=== PATIENT | male | born 1955 | race Caucasian/White ===

== ENCOUNTER 2017-01-30 08:58 | Emergency (ER) | payer BC ==
[2017-01-30] MEDS ORDERED: Nitroglycerin 0.4 MG Tab.SL SL ONE (09:15)
--- NOTE | 2017-01-30 09:22 | EDM.PDOC ---
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 felt uncomfortable through the night with some chest discomfort and left arm discomfort took a nitroglycerin at home did not get any relief came here to the ER and had some chest discomfort a second nitroglycerin was given and the patient felt much better 4 baby aspirins was given right away now the pain went down to 2 out of 10 at time of transfer he is pain-free his chest pain Onset: Today Duration: Hour(s):, Getting Worse Location: Reports: Chest Quality: Reports: Ache, Pressure Severity: Moderate Improves with: Reports: Medication (Nitroglycerin) Worsens with: Reports: Other (Activity) Context: Reports: Sick Contact Associated Symptoms: Reports: Chest Pain - Related Data Allergies Allergy/AdvReac Type Severity Reaction Status Date / Time No Known Allergies Allergy Verified 01/30/17 09:20 Home Meds: Home Meds Acetaminophen [Tylenol Extra Strength] 1,000 mg PO Q4H PRN 05/24/13 [History] Albuterol [Ventolin HFA] 1 puff INH BID PRN 05/24/13 [History] Clopidogrel Bisulfate [Clopidogrel] 75 mg PO DAILY 05/24/13 [History] Metoprolol Tartrate 25 mg PO DAILY 05/24/13 [History] Nitroglycerin [Nitrostat] 0.4 mg SL PRN 05/24/13 [History] Colchicine [Colcrys] 1 tab PO DAILY 01/30/17 [History] Fenofibrate Nanocrystallized [Fenofibrate] 1 tab PO DAILY 01/30/17 [History] Social & Family History - Alcohol Use Days Per Week of Alcohol Use: 0 - Recreational Drug Use Recreational Drug Use: No Drug Use in Last 12 Months: No ED ROS GENERAL - Review of Systems Review Of Systems: See Below Constitutional: Reports: Other (Chest discomfort radiating into her left shoulder) HEENT: Reports: No Symptoms Respiratory: Reports: Shortness of Breath (Earlier in the day) Cardiovascular: Reports: Chest Pain (At worse the chest pain was 5 out of 10) Endocrine: Reports: No Symptoms GI/Abdominal: Reports: No Symptoms : Reports: No Symptoms Musculoskeletal: Reports: Shoulder Pain Skin: Reports: No Symptoms Neurological: Reports: No Symptoms ED EXAM, GENERAL - Physical Exam Exam: See Below Exam Limited By: No Limitations General Appearance: Alert, WD/WN, No Apparent Distress Ears: Normal External Exam, Normal Canal, Hearing Grossly Normal, Normal TMs Nose: Normal Inspection, Normal Mucosa, No Blood Throat/Mouth: Normal Inspection, Normal Lips, Normal Teeth, Normal Gums, Normal Oropharynx, Normal Voice, No Airway Compromise Head: Atraumatic, Normocephalic Neck: Normal Inspection, Supple, Non-Tender, Full Range of Motion Respiratory/Chest: Decreased Breath Sounds Cardiovascular: Normal Peripheral Pulses, Regular Rate, Rhythm, No Edema, No Gallop, No JVD, No Murmur, No Rub GI/Abdominal: Normal Bowel Sounds, Soft, Non-Tender, No Organomegaly, No Distention, No Abnormal Bruit, No Mass (Male) Exam: Deferred Rectal (Males) Exam: Deferred Back Exam: Other (She did have back pain relief with a nitroglycerin) Extremities: Normal Inspection, Normal Range of Motion, Non-Tender, Normal Capillary Refill, No Pedal Edema Neurological: Alert, Oriented, CN II-XII Intact, Normal Cognition, Normal Gait, Normal Reflexes, No Motor/Sensory Deficits Psychiatric: Normal Affect, Normal Mood Course - Orders/Labs/Meds Meds: Medications Discontinued Medications Generic Name Dose Route Start Last Admin Trade Name Arminq PRN Reason Stop Dose Admin Nitroglycerin 0.4 mg 01/30/17 09:15 Nitrostat SL 01/30/17 09:16 ONETIME ONE Departure - Departure Time of Disposition: 09:47 Disposition: DC/Tfer to Acute Hospital 02 Reason for Transfer *Q: Primary PCI Indicated (Chest pain) Condition: Fair Clinical Impression: Chest pain at rest Referrals: Di Coronado NP [Primary Care Provider] - Care Plan Goals: Patient evaluated felt that this is cardiac in nature nitroglycerin glycerin sublingual improved chest pain back pain and shoulder pain troponins negative at this time cardiology contacted and will transfer to [place] EKG revealed normal sinus rhythm significant Q waves in 23 and lead 2 and 3 this could've been from a previous [place]
[2017-01-30 09:31] LABS: CHLORIDE,CL 98 mmol/L (98-107); SODIUM,NA 135 mmol/L (136-145)
[2017-01-30] MEDS ORDERED: Metoprolol Tartrate 5 MG/5 ML SDV IVPUSH ONE ×2 (09:41→09:47)
[2017-01-30] MEDS ORDERED: Aspirin 81 MG Tab.Chew PO ONE (09:47)
== END 2017-01-30 10:23 ==
LOC: LL.ED 08:58
DX: R07.89 Other chest pain (principal)
CPT/HCPCS: 36415; 71010; 80048; 83605; 83880; 84484; 85025; 93005; 96374; 99285; A9270; J3490

== ENCOUNTER 2017-08-18 01:34 | Emergency (ER) | payer BC ==
--- NOTE | 2017-08-18 01:43 | EDM.PDOC ---
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 He denies any paresthesias, leg weakness, neurological deficits, fall, head injury, or other complaints or injuries. He does have a history of chronic low back pain. The patient did apply ice packs at home, however did not take any medications or any other topical treatment prior to coming to the emergency room. He denies any post hematuria, colic, or any other UTI symptoms. The patient denies any chest pain/pressure, heart flutter, dizziness, orthostasis, orthopnea, diaphoresis, paresthesias, recent decreased exercise tolerance, or any other anginal-type symptoms. No recent history of abdominal pain, heartburn, nausea, diarrhea, melena, gross hematochezia, or any food intolerance, including fatty foods, etc.. The patient also denies any recent fever, cough, wheezing, dyspnea , etc.. Onset: Sudden Onset Date: 08/17/17 Onset Time: 21:00 Duration: Constant Location: Reports: Back. Denies: Head, Face, Neck, Chest, Abdomen, Pelvis, Upper Extremity, Left, Upper Extremity, Right, Lower Extremity, Left, Lower Extremity, Right, Radiates to Quality: Reports: Ache, Same as Previous Episode, Other (Spasms) Severity: Moderate (8/10) Improves with: Reports: Rest Worsens with: Reports: Movement Context: Reports: Other (As above) Associated Symptoms: Reports: No Other Symptoms. 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: Cold Therapy Left Middle Back Pain Score (Numeric/FACES): 8 - Related Data Allergies Allergy/AdvReac Type Severity Reaction Status Date / Time No Known Allergies Allergy Verified 08/18/17 01:35 Home Meds: Home Meds Clopidogrel Bisulfate [Clopidogrel] 75 mg PO DAILY 05/24/13 [History] Metoprolol Tartrate 12.5 mg PO DAILY 05/24/13 [History] Nitroglycerin [Nitrostat] 0.4 mg SL ASDIRECTED PRN 05/24/13 [History] Colchicine [Colcrys] 1 tab PO DAILY 01/30/17 [History] Aspirin [Halfprin] 81 mg PO DAILY 08/18/17 [History] Cyclobenzaprine [Flexeril] 10 mg PO TID PRN #30 tab 08/18/17 [Rx] Ezetimibe [Zetia] 10 mg PO DAILY 08/18/17 [History] Lisinopril 2.5 mg PO DAILY 08/18/17 [History] atorvaSTATin [Lipitor] 40 mg PO DAILY 08/18/17 [History] Past Medical History HEENT History: Reports: Impaired Vision, Other (See Below) Other HEENT History: The patient wears glasses with history of recurrent amaurosis fugax and history of left-sided strabismus 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 Mild cardiomegaly with borderline ischemic cardiomyopathy Respiratory History: Reports: Pulmonary Fibrosis Gastrointestinal History: Reports: Cholelithiasis, Colon Polyp, Other (See Below ) Other Gastrointestinal History: Tubular adenoma of the colon excised on 05/24/13 your gallbladder polyp. Cholelithiasis requiring surgery as below. Fatty liver secondary to hyperlipidemia. Genitourinary History: Reports: BPH, Chronic Renal Insuffiency Musculoskeletal History: Reports: Arthritis, Back Pain, Chronic, Fracture, Gout , Neck Pain, Chronic, Osteoarthritis Other Musculoskeletal History: Previous pelvic fracture in 2004 with surgery as below. Bilateral olecranon bursitis requiring surgery as below. Right shoulder rotator cuff tear requiring surgery as below. Bilateral calcaneal spurs. Left elbow fracture in March 2009. Avulsion fracture of the middle phalanx of digit #4 of the right hand on 10/24/02 Psychiatric History: Reports: Anxiety, Depression - Past Surgical History Cardiovascular Surgical History: Reports: Coronary Artery Stent, Percutaneous Transluminal Angioplasty, Other (See Below) Other Cardiovascular Surgeries/Procedures: Multiple previous PTCA/stents since 2010 with patient estimating a total of 10 stents in 3 separate cardiac procedures including last PTCA/stent 2 in April 2017 by his history. GI Surgical History: Reports: Colonoscopy, Hernia, Abdominal, Polypectomy, Other (See Below) Other GI Surgeries/Procedures: Initial colonoscopy on 05/24/13 with polypectomy. Laparoscopic cholecystectomy with concomitant umbilical hernia repair on Musculoskeletal Surgical History: Reports: ORIF, Shoulder Surgery, Other (See Below) Other Musculoskeletal Surgeries/Procedures:: Right shoulder rotator cuff repair in 2007. ORIF of the pubic symphysis on 09/25/04. Left olecranon bursa excision on 05/11/04 with right olecranon bursa excision in March 2002. Left elbow fusion secondary to fracture in March 2009. - Past Imaging History Past Imaging History: Reports: Angiography (Multiple heart catheterizations last in April 2017), Cardiac Echo (02/08/11 with ejection fraction of 56%), Carotid US (Carotid artery Doppler studies on 03/11/11 and 05/07/08), CAT Scan ( CT of the brain on 07/15/08 and 05/07/08.), MRI (MRI of the right shoulder on 04/10. MRI of the brain on 10/29/09.), Stress Testing (Cardiolite stress test on with ejection fraction of 46%. Low level stress tests on 08/16/14, , and 02/16/11.), Ultrasound (Abdominal ultrasound on 09/29/11) Social & Family History - Tobacco Use Smoking Status *Q: Never Smoker Tobacco Use Within Last Twelve Months: No Used Tobacco, but Quit: No Smoking Cessation Information Provided To Patient: No Second Hand Smoke Exposure: No Second Hand Smoke Education Provided: No - Living Situation & Occupation Living situation: Reports: Single, Alone Occupation: Employed ([employer]) ED ROS GENERAL - Review of Systems Review Of Systems: ROS reveals no pertinent complaints other than HPI. ED EXAM,LOWER BACK PAIN/INJURY - Physical Exam Exam: See Below Exam Limited By: No Limitations General Appearance: Alert, WD/WN, No Apparent Distress Head: Atraumatic, Normocephalic Neck: Normal Inspection, Supple, Non-Tender, Full Range of Motion. No: Lymphadenopathy (L), Lymphadenopathy (R), Thyromegaly Respiratory/Chest: No Respiratory Distress, Lungs Clear, Normal Breath Sounds, No Accessory Muscle Use, Chest Non-Tender. No: Pleural Rub, Retractions Cardiovascular: Normal Peripheral Pulses, Regular Rate, Rhythm, No Edema, No Gallop, No JVD, No Murmur, No Rub. No: Gallop/S3, Gallop/S4, Friction Rub GI/Abdominal: Normal Bowel Sounds, Soft, Non-Tender, No Organomegaly, No Distention, No Abnormal Bruit, No Mass. No: Pelvis Stable (Male) Exam: Deferred Rectal (Males) Exam: Deferred Back Exam: Decreased Range of Motion (Mild decreased range of motion secondary to low back pain and muscle spasms), Muscle Spasm (Mild left mid paravertebral muscle spasms with mild to moderate localized palpation pain without ecchymosis , swelling, crepitation, etc.), Paraspinal Tenderness (As above). No: CVA Tenderness (L), CVA Tenderness (R), Vertebral Tenderness Extremities: Normal Inspection, Normal Range of Motion, Non-Tender, No Pedal Edema, Normal Capillary Refill Neurological: Alert, Normal Mood/Affect, Normal Dorsiflexion, CN II-XII Intact, Normal Plantar Flexion, Normal Gait, Normal Reflexes, No Motor/Sensory Deficits , Oriented x 3 Psychiatric: Normal Affect, Normal Mood Skin Exam: Warm, Dry, Intact, Normal Color, No Rash. No: Diaphoretic, Ecchymosis, Wound/Incision Lymphatic: No Adenopathy Course - Vital Signs Last Recorded V/S: Last Vital Signs Temp 36.8 C 08/18/17 01:38 Pulse 78 08/18/17 01:38 Resp 18 08/18/17 01:38 BP 154/94 H 08/18/17 01:38 Pulse Ox 97 08/18/17 01:38 Vital Signs - 24 hr 08/18/17 01:38 Temperature [ 36.8 C Oral] Pulse, 78 Peripheral [ Brachial] Respiratory 18 Rate Blood Pressure 154/94 H [Left Upper Arm ] O2 Sat by Pulse 97 Oximetry - Orders/Labs/Meds Orders: Active Orders 24 hr Category Date Time Status Obtain Past Medical Record [OM.PC] Routine Oth 08/18/17 01:44 Active Labs: None Meds: Medications Discontinued Medications Generic Name Dose Route Start Last Admin Trade Name Freq PRN Reason Stop Dose Admin Ketorolac Tromethamine 60 mg 08/18/17 01:44 08/18/17 01:54 Toradol IM 08/18/17 01:45 60 mg ONETIME ONE Administration - Radiology Interpretation Free Text/Narrative:: None Departure - Departure Time of Disposition: 02:10 Disposition: Home, Self-Care 01 Condition: Good Clinical Impression: Low back pain Qualifiers: Chronicity: acute Back pain laterality: left Sciatica presence: without sciatica Qualified Code(s): M54.5 - Low back pain Coronary artery disease Qualifiers: Coronary Disease-Associated Artery/Lesion type: [place] artery [place] vs. transplanted heart: [place] heart Associated angina: without angina Qualified Code(s): I25.10 - Atherosclerotic heart disease of [place] coronary artery without angina pectoris Hypertension Qualifiers: Hypertension type: essential hypertension Qualified Code(s): I10 - Essential ( primary) hypertension Osteoarthritis Qualifiers: Osteoarthritis location: multiple joints Osteoarthritis type: primary Qualified Code(s): M15.0 - Primary generalized (osteo)arthritis Hyperlipidemia Qualifiers: Hyperlipidemia type: unspecified Qualified Code(s): E78.5 - Hyperlipidemia, unspecified - Discharge Information Prescriptions: Cyclobenzaprine [Flexeril] 10 mg PO TID PRN #30 tab PRN Reason: Spasms Instructions: Cyclobenzaprine tablets, Ketorolac injection, Back Pain, Adult, [id number] Referrals: Letty Rush PA [Primary Care Provider] - Forms: ED Department Discharge Additional Instructions: 1. Follow up with your regular provider in 10-14 days as needed, if symptoms persist. 2. Tylenol 650 mg by mouth every 4 hours and/or OTC ibuprofen 2-3 tabs by mouth every 6 hours with food as directed./needed. Next dose of ibuprofen in 6 hours as needed secondary to medications given in the emergency room. 3. BenGay or equivalent, heating pad, and/or ice packs as directed. 4. Advance activity as tolerated/discussed 5. Okay to see chiropractor tomorrow 6. Sedation precautions with Flexeril 7. Immediately after this visit verify that your cellular telephone's voicemail has been activated and is empty. Also verify that your home telephone 's answering machine is operating properly and has space to receive messages. Note that it is sometimes necessary for us to be able to contact you at a later date to discuss your medical care. - Problem List & Annotations (1) Low back pain SNOMED Code(s): 641605085 Code(s): M54.5 - LOW BACK PAIN Status: Acute Priority: High Current Visit: Yes Onset Date: 08/17/17 Annotation/Comment:: Symptomatic relief as per discharge instructions. Patient normally goes to a chiropractor. 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 Sedation precautions with Flexeril, activity restrictions, etc. discussed. Qualifiers: Chronicity: acute Back pain laterality: left Sciatica presence: without sciatica Qualified Code(s): M54.5 - Low back pain (2) Coronary artery disease SNOMED Code(s): 02448268 Code(s): I25.10 - ATHSCL HEART DISEASE OF [place] CORONARY ARTERY W/O ANG PCTRS Status: Chronic Priority: Medium Current Visit: Yes Annotation/ Comment:: No recent chest pain or anginal type symptoms Qualifiers: Coronary Disease-Associated Artery/Lesion type: [place] artery [place] vs. transplanted heart: [place] heart Associated angina: without angina Qualified Code(s): I25.10 - Atherosclerotic heart disease of [place] coronary artery without angina pectoris (3) Hyperlipidemia SNOMED Code(s): 77233353 Code(s): E78.5 - HYPERLIPIDEMIA, UNSPECIFIED Status: Chronic Priority: Medium Current Visit: Yes Annotation/Comment:: Currently under therapy Qualifiers: Hyperlipidemia type: unspecified Qualified Code(s): E78.5 - Hyperlipidemia , unspecified (4) Hypertension SNOMED Code(s): 46387563 Code(s): I10 - ESSENTIAL (PRIMARY) HYPERTENSION Status: Chronic Priority : Medium Current Visit: Yes Annotation/Comment:: Blood pressure somewhat elevated secondary to patient's low back pain. Continue to observe for now with close follow-up by his regular provider Qualifiers: Hypertension type: essential hypertension Qualified Code(s): I10 - Essential (primary) hypertension (5) Osteoarthritis SNOMED Code(s): 381467315 Code(s): M19.90 - UNSPECIFIED OSTEOARTHRITIS, UNSPECIFIED SITE Status: Chronic Priority: Medium Current Visit: Yes Annotation/Comment:: Otherwise stable by history with no recent gout attacks. Qualifiers: Osteoarthritis location: multiple joints Osteoarthritis type: primary Qualified Code(s): M15.0 - Primary generalized (osteo)arthritis - Problem List Review Problem List Initiated/Reviewed/Updated: Yes - My Orders Last 24 Hours: My Active Orders 08/18/17 01:44 Obtain Past Medical Record [OM.PC] Routine - Assessment/Plan Last 24 Hours: My Active Orders 08/18/17 01:44 Obtain Past Medical Record [OM.PC] Routine Assessment:: As above Plan: As above. Extensive precautions were given to the patient, who is in agreement with the treatment plan. See Patient Instructions for further treatment and plan.
[2017-08-18] MEDS ORDERED: Ketorolac 60 MG/2 ML SDV IM ONE (01:44)
== END 2017-08-18 02:10 | disposition home or self-care (01) ==
LOC: LL.ED 01:34
DX: M54.5 Low back pain (principal); I25.10 Atherosclerotic heart disease of native coronary artery without angina pectoris; M15.0 Primary generalized (osteo)arthritis; E78.5 Hyperlipidemia, unspecified; I12.9 Hypertensive chronic kidney disease with stage 1 through stage 4 chronic kidney disease, or unspecified chronic kidney disease; N18.9 Chronic kidney disease, unspecified; I25.2 Old myocardial infarction; Z79.899 Other long term (current) drug therapy; Z79.82 Long term (current) use of aspirin
CPT/HCPCS: 96372; 99283; J1885

== ENCOUNTER 2017-09-15 14:51 | Observation (INO) | payer BC ==
[2017-09-15] MEDS ORDERED: Sodium Chloride 0.9% 10 ML Syringe FLUSH PRN ×2 (14:54→16:44)
[2017-09-15] MEDS ORDERED: Famotidine 20 MG/2 ML SDV IVPUSH ONE (14:54)
[2017-09-15] MEDS ORDERED: Aspirin 81 MG Tab.Chew CHEW ONE (14:54)
[2017-09-15] MEDS ORDERED: Metoprolol Tartrate 5 MG/5 ML SDV IVPUSH ONE ×2 (14:54→15:05)
[2017-09-15] MEDS ORDERED: Ticagrelor 90 MG Tab PO ONE (14:54)
--- NOTE | 2017-09-15 14:54 | EDM.PDOC ---
ED HPI GENERAL MEDICAL PROBLEM - General Chief Complaint: Chest Pain Stated Complaint: Chest Pressure, Shortness of Breath Time Seen by Provider: 09/15/17 14:53 Source of Information: Reports: Patient, EMS Notes Reviewed, Old Records ([facility] chart/EMR) History Limitations: Reports: No Limitations - History of Present Illness INITIAL COMMENTS - FREE TEXT/NARRATIVE: The patient drove himself to the emergency room via private automobile for evaluation of 2/10 retrosternal chest pressure with symptoms starting about 2 AM this morning. He has noted some progressive increased dyspnea, including at rest, with no sublingual nitroglycerin tablets or other medications taken to this point. Note that the symptoms did awaken him from sleep. He denies any radiation of the chest pain. The patient denies any heart flutter, dizziness, orthostasis, orthopnea, diaphoresis, paresthesias, recent decreased exercise tolerance, or any other anginal-type symptoms. No recent history of abdominal pain, heartburn, nausea, diarrhea, melena, gross hematochezia, or any food intolerance, including fatty foods, etc.. No recent history of gross hematuria, colic, or other UTI symptoms. The patient also denies any recent fever, cough, wheezing, dyspnea, etc.. He denies any exposure to infection. Patient did take some Sudafed earlier this morning secondary to his dyspnea and mild nasal drainage no improvement in symptoms. No history of recent headaches, visual changes, diplopia, change in mental status, or other change in neurological status. Onset: Today Onset Date: 09/15/17 Onset Time: 02:00 Duration: Constant, Getting Worse Location: Reports: Chest. Denies: Head, Face, Neck, Abdomen, Upper Extremity, Left, Upper Extremity, Right, Radiates to Quality: Reports: Pressure. Denies: Same as Previous Episode Severity: Mild Improves with: Reports: None Worsens with: Reports: None Context: Reports: Other (As above). Denies: Sick Contact Associated Symptoms: Reports: Chest Pain, Shortness of Breath. 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: Other (see below) (None) Middle Chest Pain Score (Numeric/FACES): 2 - Related Data Allergies Allergy/AdvReac Type Severity Reaction Status Date / Time No Known Allergies Allergy Verified 08/18/17 01:35 Home Meds: Home Meds Clopidogrel Bisulfate [Clopidogrel] 75 mg PO DAILY 05/24/13 [History] Nitroglycerin [Nitrostat] 0.4 mg SL ASDIRECTED PRN 05/24/13 [History] Colchicine [Colcrys] 0.6 mg PO DAILY 01/30/17 [History] Aspirin [Halfprin] 81 mg PO DAILY 08/18/17 [History] Ezetimibe [Zetia] 10 mg PO DAILY 08/18/17 [History] Lisinopril 2.5 mg PO DAILY 08/18/17 [History] atorvaSTATin [Lipitor] 40 mg PO DAILY 08/18/17 [History] Metoprolol Succinate [Toprol XL] 12.5 mg PO DAILY 09/15/17 [History] Past Medical History HEENT History: Reports: Allergic Rhinitis, Impaired Vision, Other (See Below). 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 Denies: Afib, Angina, Arrhythmia, Blood Clots/VTE/DVT, Heart Failure, PVD, Syncope Other Cardiovascular History: History of probable multiple MIs since 2010, including on 02/18/11 and 12/06/12' with multiple stents as below. Mild cardiomegaly with borderline ischemic cardiomyopathy Respiratory History: Reports: COPD, Intubation, Previous, Pulmonary Fibrosis, Other (See Below). Denies: Asthma, Bronchitis, Recurrent, Intubation, Difficult , PE, Pneumonia, Recurrent, Pneumothorax, Sleep Apnea, TB Other Respiratory History: COPD and pulmonary fibrosis by chest x-ray Gastrointestinal History: Reports: Cholelithiasis, Colon Polyp, Other (See Below ). Denies: Celiac Disease, Chronic Constipation, Chronic Diarrhea, Diverticulosis, Fecal Incontinence, Gastritis, GERD, GI Bleed, Hepatitis, Hiatal Hernia, Inflammatory Bowel Disease, Irritable Bowel Syndrome, Jaundice, Pancreatitis, PUD Other Gastrointestinal History: Tubular adenoma of the colon excised on 05/24/13. Gallbladder polyp. Cholelithiasis requiring surgery as below. Fatty liver secondary to hyperlipidemia. Genitourinary History: Reports: BPH, Chronic Renal Insuffiency. Denies: Acute Renal Failure, Renal Calculus, Retention, Urinary, STD, Urinary Incontinence, UTI, Recurrent Musculoskeletal History: Reports: Arthritis, Back Pain, Chronic, Fracture, Gout , Neck Pain, Chronic, Osteoarthritis. Denies: Amputation, Osteoporosis, RA, SLE Other Musculoskeletal History: Previous pelvic fracture in 2004 with surgery as below. Bilateral olecranon bursitis requiring surgery as below. Right shoulder rotator cuff tear requiring surgery as below. Bilateral calcaneal spurs. Left elbow fracture in March 2009. Avulsion fracture of the middle phalanx of digit #4 of the right hand on 10/24/02 Neurological History: Denies: Cerebral Aneurysms, Concussion, CVA, Headaches, Chronic, Head Trauma, Migraines, MS, Neuropathy, Peripheral, Parkinson's, Seizure, TIA Psychiatric History: Reports: Anxiety, Depression. Denies: Abuse, Victim of, ADD, ADHD, Addiction, Dementia, Psych Hospitalization(s), Psychosis, PTSD, Suicide Attempt, Suicidal Ideation Endocrine/Metabolic History: Reports: Obesity/BMI 30+. Denies: Diabetes, Type I , Diabetes, Type II, Diabetes Mellitus, Type 3c, Hypothyroidism, IDDM, Osteopenia, Osteoporosis Hematologic History: Reports: None. Denies: Anemia, Blood Transfusion(s), Iron Deficiency Immunologic History: Reports: None. Denies: AIDS, HIV, SLE Oncologic (Cancer) History: Reports: None. Denies: Basal Cell Carcinoma, Colon , Hodgkin's Lymphoma, Leukemia, Lymphoma, Malignant Melanoma, Non-Hodgkin's Lymphoma, Prostate, Squamous Cell Carcinoma Dermatologic History: Reports: None. Denies: Eczema, Psoriasis - Infectious Disease History Infectious Disease History: Reports: Chicken Pox, Measles, Mumps. Denies: C- Difficile, Meningitis, Mononucleosis, MRSA, Pertussis (Whooping Cough), Rheumatic Fever, Rubella, Scarlet Fever, Shingles, TB, VRE - Past Surgical History Head Surgeries/Procedures: Reports: None HEENT Surgical History: Reports: Oral Surgery, Other (See Below). Denies: Adenoidectomy, Cataract Surgery, Eye Surgery, Laser Surgery, LASIK, Myringotomy w Tube(s), Naso-Sinus Surgery, Tonsillectomy Other HEENT Surgeries/Procedures: [place] teeth extraction 4 in the with additional multiple teeth extractions. Cardiovascular Surgical History: Reports: Coronary Artery Stent, Percutaneous Transluminal Angioplasty, Other (See Below). Denies: Coronary Artery Bypass, Pacer, Varicose Other Cardiovascular Surgeries/Procedures: Multiple previous PTCA/stents since 2010 with patient estimating a total of 10 stents in 3 separate cardiac procedures including last PTCA/stent 2 on 01/31/17. Respiratory Surgical History: Reports: None. Denies: Thoracentesis GI Surgical History: Reports: Cholecystectomy, Colonoscopy, Hernia, Abdominal, Polypectomy, Other (See Below). Denies: Appendectomy, Hernia, Inguinal, Hernia Repair/Other Other GI Surgeries/Procedures: Initial colonoscopy on 05/24/13 with polypectomy. Laparoscopic cholecystectomy with concomitant umbilical hernia repair on Male Surgical History: Reports: Circumcision, Other (See Below). Denies: Vasectomy Other Male Surgeries/Procedures: Circumcision as an . Endocrine Surgical History: Reports: None. Denies: Thyroid Biopsy Neurological Surgical History: Reports: None. Denies: C-Spine, Discectomy, Intracranial, Laminectomy, Lumbar Spine, Sacral Spine, Spinal Fusion, Thoracic Spine, Vertebroplasty Musculoskeletal Surgical History: Reports: ORIF, Shoulder Surgery, Other (See Below). Denies: Arthroscopic Procedure, Carpal Tunnel, Ganglion Cyst, Joint Replacement Other Musculoskeletal Surgeries/Procedures:: Right shoulder rotator cuff repair in 2007. ORIF of the pubic symphysis on 09/25/04. Left olecranon bursa excision on 05/11/04 with right olecranon bursa excision in March 2002. Left elbow fusion secondary to fracture in March 2009. Oncologic Surgical History: Reports: None Dermatological Surgical History: Reports: None - Past Imaging History Past Imaging History: Reports: Angiography (Multiple heart catheterizations last on 01/31/17.), Cardiac Echo (02/08/11 with ejection fraction of 56%), Carotid US (Carotid artery Doppler studies on 03/11/11 and 05/07/08), CAT Scan ( CT of the brain on 07/15/08 and 05/07/08.), MRI (MRI of the right shoulder on 04/10. MRI of the brain on 10/29/09.), Stress Testing (Cardiolite stress test on with ejection fraction of 46%. Low level stress tests on 08/16/14, , and 02/16/11.), Ultrasound (Abdominal ultrasound on 09/29/11) Social & Family History - Family History HEENT: Reports: None. Denies: Allergic Rhinitis, Glaucoma, Macular Degeneration , Retinal Detachment Cardiac: Reports: Arrhythmia, CAD, SD, Pacemaker, Stent, Other (See Below). Denies: Aneurysm, Blood Clots/VTE/DVT, Heart Failure, High Cholesterol, Hypertension, PVD/COD Other Cardiac Family History: Father with history of pacemaker history of syncope, unknown type of arrhythmia, previous PTCA/stents and possible SD in his 70s. Brothers 2 with PTCA/stents and possible SD both in their 50s. Respiratory: Reports: None. Denies: Asthma, COPD, PE, Pneumothorax, Sleep Apnea GI: Reports: None. Denies: Celiac Disease, Cholelithiasis, Colon Polyps, GERD, GI bleed, Inflammatory Bowel Disease, Irritable Bowel Syndrome, PUD : Reports: None. Denies: Dialysis, Renal Calculus, Renal Disease/ Insufficiency OBGYN: Reports: None. Denies: Endometriosis, Recurrent Spontaneous Musculoskeletal: Reports: None. Denies: Arthritis, Gout, Osteoarthritis, RA, SLE Neurological: Reports: CVA, Other (See Below). Denies: Alzheimers Disease, Cerebral Aneurysms, Dementia, Migraines, MS, Parkinson's, Seizure, TIA Other Neurological Family History: Father with CVA in his 70s. Paternal grandfather with fatal CVA in his 70s. Psychiatric: Reports: None. Denies: Abuse, Victim of, ADD, ADHD, Anxiety, Depression, Psych Hospitalization(s), PTSD, Suicide Attempt Endocrine/Metabolic: Reports: Diabetes, type II, IDDM, Other (See Below). Denies: Diabetes, Type I, Diabetes Mellitus, Type 3c, Hypothyroidism Other Endocrine/Metabolic Family History: Maternal grandmother and sister with IDDM Hematologic: Reports: None. Denies: Anemia, SLE, Transfusion Reaction Immunologic: Reports: None. Denies: AIDS, HIV, SLE Dermatologic: Reports: None. Denies: Eczema, Psoriasis Oncologic: Reports: Lung, Skin, Other (See Below). Denies: Colon, Hodgkin's Lymphoma, Leukemia, Lymphoma, Non-Hodgkin's Lymphoma, Prostate Other Oncologic Family History: Brother with fatal lung cancer at age 61 with history of tobacco use. Maternal grandmother with unknown type of fatal cancer in her 70s. Niece with fatal bone cancer at age 13. Father with unknown type of skin cancer. - Tobacco Use Smoking Status *Q: Never Smoker Tobacco Use Within Last Twelve Months: No Used Tobacco, but Quit: No Smoking Cessation Information Provided To Patient: No Second Hand Smoke Exposure: No Second Hand Smoke Education Provided: No - Caffeine Use Caffeine Use: Reports: Soda (15 sodas per day). Denies: Coffee, Energy Drinks, Tea - Alcohol Use Alcohol Use History: Yes Days Per Week of Alcohol Use: 0 Number of Drinks Per Day: 3 Number of Drinks Per Day Comment: DWI at age 21. No previous problems with alcohol abuse, treatment, etc. Patient usually drinks vodka, mixed drinks, etc. for holidays, etc. Total Drinks Per Week: 0 Alcohol Use in Last Twelve Months: Yes Alcohol Use Frequency: Rarely - Recreational Drug Use Recreational Drug Use: No Drug Use in Last 12 Months: No Recreational Drug Type: Denies: Amphetamines (Speed), Cocaine, Heroin, Inhalants (Glues, Solvents, Aerosols), LSD (Acid), Marijuana/Hashish, Methamphetamine, Oxycodone - Living Situation & Occupation Living situation: Reports: Single (No children), Alone Occupation: Employed ([employer] and works in the [employer] in [place]) ED ROS GENERAL - Review of Systems Review Of Systems: ROS reveals no pertinent complaints other than HPI. ED EXAM, GENERAL - Physical Exam Exam: See Below Exam Limited By: No Limitations General Appearance: Alert, WD/WN, No Apparent Distress, Anxious Eye Exam: Bilateral Eye: EOMI, Normal Inspection (She the patient is wearing glasses. No nystagmus), PERRL Ears: Normal External Exam, Normal Canal, Hearing Grossly Normal, Normal TMs Nose: Normal Inspection, Normal Mucosa, No Blood Throat/Mouth: Normal Inspection, Normal Lips, Normal Teeth (Multiple missing teeth), Normal Gums, Normal Oropharynx, Normal Voice, No Airway Compromise. No : Dysphagia, Perioral Cyanosis Head: Atraumatic, Normocephalic. No: Facial Swelling, Facial Tenderness, Sinus Tenderness Neck: Normal Inspection, Supple, Non-Tender, Full Range of Motion. No: Carotid Bruit, Lymphadenopathy (L), Lymphadenopathy (R), Thyromegaly Respiratory/Chest: No Respiratory Distress, Lungs Clear, Normal Breath Sounds, No Accessory Muscle Use, Chest Non-Tender. No: Pleural Rub, Retractions Cardiovascular: Normal Peripheral Pulses, Regular Rate, Rhythm, No Edema, No Gallop, No JVD, No Murmur, No Rub. No: Gallop/S3, Gallop/S4, Friction Rub Peripheral Pulses: 3+: Radial (L), Radial (R), Dorsalis Pedis (L), Dorsalis Pedis (R) GI/Abdominal: Normal Bowel Sounds, Soft, Non-Tender, No Organomegaly, No Distention, No Abnormal Bruit, No Mass, Pelvis Stable. No: Guarding (Male) Exam: Deferred Rectal (Males) Exam: Deferred Back Exam: Normal Inspection, Full Range of Motion. No: CVA Tenderness (L), CVA Tenderness (R), Muscle Spasm Extremities: Normal Inspection, Normal Range of Motion, Non-Tender, No Pedal Edema, Normal Capillary Refill. No: Osiel's Sign Neurological: Alert, Oriented, CN II-XII Intact, Normal Cognition, Normal Gait, Normal Reflexes (Negative Babinski's), No Motor/Sensory Deficits Psychiatric: Normal Affect, Normal Mood Skin Exam: Warm, Dry, Intact, Normal Color, No Rash. No: Diaphoretic, Wound/ Incision Lymphatic: No Adenopathy EKG INTERPRETATION EKG Date: 09/15/17 Time: 14:57 Rhythm: NSR Rate (Beats/Min): 75 [place]: Normal (Left cardiac axis) P-Wave: Enlarged (Mild diffuse biphasic P waves) QRS: Wide (0.10 seconds representing repolarization changes) ST-T: Normal QT: Normal [place]/PQ Interval: 0.17 seconds Comparison: No Change (01/30/17) EKG Interpretation Comments: 1. No acute ischemic changes 2. Probable left atrial enlargement 3. Repolarization changes Course - Vital Signs Last Recorded V/S: Last Vital Signs Temp 36.6 C 09/15/17 14:54 Pulse 67 09/15/17 16:05 Resp 13 09/15/17 16:05 BP 132/79 09/15/17 16:05 Pulse Ox 100 09/15/17 16:05 Vital Signs - 24 hr 09/15/17 09/15/17 09/15/17 14:54 15:05 15:12 Temperature [ 36.6 C Temporal] Pulse, 80 Peripheral Pulse, 74 68 Peripheral [ Pulse Oximetry] Respiratory 13 14 Rate Blood Pressure 133/77 Blood Pressure 163/92 H 133/77 [Right Upper Arm] O2 Sat by Pulse 98 97 Oximetry 09/15/17 15:35 Temperature [ Temporal] Pulse, Peripheral Pulse, 68 Peripheral [ Pulse Oximetry] Respiratory 17 Rate Blood Pressure Blood Pressure 128/75 [Right Upper Arm] O2 Sat by Pulse 100 Oximetry - Orders/Labs/Meds Orders: Active Orders 24 hr Category Date Time Status Cardiac Monitoring [RC] Q2HR Care 09/15/17 14:54 Active EKG Documentation Completion [RC] ASDIRECTED Care 09/15/17 14:54 Active Oxygen Therapy, ED [RC] CONTINUOUS Care 09/15/17 14:54 Active Peripheral IV Care [RC] . DIRECTED Care 09/15/17 14:54 Active Pulse Oximetry [RC] CONTINUOUS Care 09/15/17 14:54 Active Up With Assistance [RC] PFP Care 09/15/17 14:54 Active Vital Signs [RC] PFP Care 09/15/17 14:54 Active Nothing per Oral Now Diet [DIET] Diet 09/15/17 Breakfast Active Chest 1V Frontal [CR] Stat Exams 09/15/17 14:54 Taken Sodium Chloride 0.9% [Saline Flush] Med 09/15/17 14:54 Active 10 ml FLUSH ASDIRECTED PRN Obtain Past Medical Record [OM.PC] Urgent Oth 09/15/17 14:54 Active Peripheral IV Insertion Adult [OM.PC] Stat Oth 09/15/17 14:54 Ordered Resuscitation Status Stat Resus Stat 09/15/17 14:54 Ordered Medication Orders Sodium Chloride (Saline Flush) 10 ml FLUSH ASDIRECTED PRN PRN Reason: Keep Vein Open Last Admin: 09/15/17 15:18 Dose: 10 ml Labs: Laboratory Tests 09/15/17 09/15/17 09/15/17 Range/Units 15:01 15:01 15:01 WBC 8.9 (4.0-10.2) K/uL RBC 4.48 (4.33-5.41) M/uL Hgb 13.8 (13.1-16.8) g/dL Hct 40.2 (39.0-49.0) % MCV 89.7 (84.0-98.0) fL MCH 30.8 (28.2-33.3) pg MCHC 34.3 (31.7-36.0) g/dL RDW 14.4 H (11.2-14.1) % Plt Count 213 (150-350) K/uL Neut % (Auto) 60.7 (45.0-80.0) % Lymph % (Auto) 22.3 (10.0-50.0) % [place] % (Auto) 14.2 H (2.0-14.0) % Eos % (Auto) 2.6 (0.0-5.0) % Baso % (Auto) 0.2 (0.0-2.0) % Neut # (Auto) 5.39 (1.40-7.00) K/uL Lymph # (Auto) 1.98 (0.50-3.50) K/uL [place] # (Auto) 1.26 H (0.00-1.00) K/uL Eos # (Auto) 0.23 (0.00-0.50) K/uL Baso # (Auto) 0.02 (0.00-0.20) K/uL PT 10.7 (9.8-11.7) SEC INR 1.0 APTT 24.9 (22.1-29.8) SEC D-Dimer, Quantitative 175 (0-400) ng/mL Sodium (136-145) mmol/L Potassium (3.5-5.1) mmol/L Chloride (98-107) mmol/L Carbon Dioxide (21.0-32.0) mmol/L BUN (7-18) mg/dL Creatinine (0.51-1.17) mg/dL Est Cr Clr Drug Dosing mL/min Estimated GFR (MDRD) mL/min Glucose (74-106) mg/dL Lactic Acid (0.4-2.0) mmol/L Uric Acid (2.6-7.2) mg/dL Calcium (8.5-10.1) mg/dL Magnesium (1.8-2.4) mg/dL Total Bilirubin (0.2-1.0) mg/dL AST (15-37) U/L ALT (12-78) U/L Alkaline Phosphatase (46-116) IU/L Creatine Kinase (26-308) U/L Creatine Kinase Index (0.0-2.5) % CK-MB (CK-2) (0.00-3.60) ng/mL Troponin I (0.000-0.056) ng/mL NT-Pro-B Natriuret Pep (0-125) pg/mL Total Protein (6.4-8.2) g/dL Albumin (3.4-5.0) g/dL TSH, Ultra Sensitive (0.358-3.740) mIU/mL 09/15/17 09/15/17 Range/Units 15:01 15:01 WBC (4.0-10.2) K/uL RBC (4.33-5.41) M/uL Hgb (13.1-16.8) g/dL Hct (39.0-49.0) % MCV (84.0-98.0) fL MCH (28.2-33.3) pg MCHC (31.7-36.0) g/dL RDW (11.2-14.1) % Plt Count (150-350) K/uL Neut % (Auto) (45.0-80.0) % Lymph % (Auto) (10.0-50.0) % [place] % (Auto) (2.0-14.0) % Eos % (Auto) (0.0-5.0) % Baso % (Auto) (0.0-2.0) % Neut # (Auto) (1.40-7.00) K/uL Lymph # (Auto) (0.50-3.50) K/uL [place] # (Auto) (0.00-1.00) K/uL Eos # (Auto) (0.00-0.50) K/uL Baso # (Auto) (0.00-0.20) K/uL PT (9.8-11.7) SEC INR APTT (22.1-29.8) SEC D-Dimer, Quantitative (0-400) ng/mL Sodium 138 (136-145) mmol/L Potassium 3.8 (3.5-5.1) mmol/L Chloride 104 (98-107) mmol/L Carbon Dioxide 25.5 (21.0-32.0) mmol/L BUN 22 H (7-18) mg/dL Creatinine 1.20 H (0.51-1.17) mg/dL Est Cr Clr Drug Dosing 60.44 mL/min Estimated GFR (MDRD) > 60 mL/min Glucose 102 (74-106) mg/dL Lactic Acid 0.8 (0.4-2.0) mmol/L Uric Acid 8.0 H (2.6-7.2) mg/dL Calcium 9.2 (8.5-10.1) mg/dL Magnesium 2.0 (1.8-2.4) mg/dL Total Bilirubin 0.6 (0.2-1.0) mg/dL AST 21 (15-37) U/L ALT 34 (12-78) U/L Alkaline Phosphatase 35 L (46-116) IU/L Creatine Kinase 252 (26-308) U/L Creatine Kinase Index 1.2 (0.0-2.5) % CK-MB (CK-2) 3.00 (0.00-3.60) ng/mL Troponin I 0.000 (0.000-0.056) ng/mL NT-Pro-B Natriuret Pep 47 (0-125) pg/mL Total Protein 7.6 (6.4-8.2) g/dL Albumin 3.9 (3.4-5.0) g/dL TSH, Ultra Sensitive 1.788 (0.358-3.740) mIU/mL Meds: Medications Generic Name Dose Route Start Last Admin Trade Name Freq PRN Reason Stop Dose Admin Sodium Chloride 10 ml 09/15/17 14:54 09/15/17 15:18 Saline Flush FLUSH 10 ml ASDIRECTED PRN Administration Keep Vein Open Discontinued Medications Generic Name Dose Route Start Last Admin Trade Name Freq PRN Reason Stop Dose Admin Aspirin 324 mg 09/15/17 14:54 09/15/17 15:11 Aspirin CHEW 09/15/17 14:55 324 mg ONETIME ONE Administration Famotidine 40 mg 09/15/17 14:54 09/15/17 15:12 Pepcid IVPUSH 09/15/17 14:55 40 mg ONETIME ONE Administration Metoprolol Tartrate 2.5 mg 09/15/17 14:54 09/15/17 15:12 Lopressor IVPUSH 09/15/17 14:55 2.5 mg ONETIME ONE Administration Metoprolol Tartrate 2.5 mg 09/15/17 15:05 09/15/17 15:18 Lopressor IVPUSH 09/15/17 15:06 Not Given ONETIME ONE Ticagrelor 180 mg 09/15/17 14:54 09/15/17 15:12 Brilinta PO 09/15/17 14:55 180 mg ONETIME ONE Administration - Radiology Interpretation Free Text/Narrative:: nuclear monitoring technician shows occasional PACs with otherwise normal sinus rhythm ranging the 70s to 90s. No other ectopy or arrhythmia. Chest x-ray, portable, shows evidence of moderate COPD changes with mild prominence of proximal aortic arch and additional probable pulmonary hypertension and/or mild centralized CHF. No pulmonary infiltrates, pneumothorax , cardiomegaly, etc. Departure - Departure Time of Disposition: 16:10 Disposition: Refer to Observation Condition: Good Clinical Impression: Chest pain Qualifiers: Chest pain type: chest pain due to myocardial ischemia Ischemic chest pain type : stable angina pectoris Qualified Code(s): I20.8 - Other forms of angina pectoris Coronary artery disease Qualifiers: Coronary Disease-Associated Artery/Lesion type: [place] artery [place] vs. transplanted heart: [place] heart Associated angina: without angina Qualified Code(s): I25.10 - Atherosclerotic heart disease of [place] coronary artery without angina pectoris Hypertension Qualifiers: Hypertension type: essential hypertension Qualified Code(s): I10 - Essential ( primary) hypertension Hyperlipidemia Qualifiers: Hyperlipidemia type: unspecified Qualified Code(s): E78.5 - Hyperlipidemia, unspecified Osteoarthritis Qualifiers: Osteoarthritis location: multiple joints Osteoarthritis type: primary Qualified Code(s): M15.0 - Primary generalized (osteo)arthritis Allergic rhinitis Qualifiers: Allergic rhinitis trigger: unspecified Allergic rhinitis seasonality: unspecified seasonality Qualified Code(s): J30.9 - Allergic rhinitis, unspecified COPD (chronic obstructive pulmonary disease) Qualifiers: COPD type: emphysema Emphysema type: panlobular Qualified Code(s): J43.1 - Panlobular emphysema - Problem List & Annotations (1) Chest pain SNOMED Code(s): 87556531 Code(s): R07.9 - CHEST PAIN, UNSPECIFIED Status: Acute Priority: High Current Visit: Yes Onset Date: 09/15/17 Annotation/Comment:: No history of significant coronary artery disease as above with initiation of chest pain protocol immediately upon patient's arrival to the emergency room. Initiate standard rule out SD orders. Cardiology consultation depending on his clinical course. Recommend repeat Cardiolite stress test on an outpatient basis. [facility] physician assumes care in the a.m. Patient was chest pain free on admission with no nitroglycerin tablet required. Compliance with subungual nitroglycerin tablets was encouraged. Qualifiers: Chest pain type: chest pain due to myocardial ischemia Ischemic chest pain type: stable angina pectoris Qualified Code(s): I20.8 - Other forms of angina pectoris (2) Coronary artery disease SNOMED Code(s): 91896574 Code(s): I25.10 - ATHSCL HEART DISEASE OF [place] CORONARY ARTERY W/O ANG PCTRS Status: Chronic Priority: Medium Current Visit: Yes Annotation/ Comment:: As above Qualifiers: Coronary Disease-Associated Artery/Lesion type: [place] artery [place] vs. transplanted heart: [place] heart Associated angina: without angina Qualified Code(s): I25.10 - Atherosclerotic heart disease of [place] coronary artery without angina pectoris (3) PAC (premature atrial contraction) SNOMED Code(s): 919140790 Code(s): I49.1 - ATRIAL PREMATURE DEPOLARIZATION Status: Acute Priority: Medium Current Visit: Yes Onset Date: 09/15/17 Annotation/Comment:: Newly diagnosed with IV Lopressor as above. Continue current beta anastasiya therapy for now. (4) COPD (chronic obstructive pulmonary disease) SNOMED Code(s): 86600212 Code(s): J44.9 - CHRONIC OBSTRUCTIVE PULMONARY DISEASE, UNSPECIFIED Status : Chronic Priority: Medium Current Visit: Yes Annotation/Comment:: No recent therapy required. IM Depo-Medrol as above. No recent fever or other bronchitic type symptoms. When necessary nebulizer treatments during this hospitalization. Consider PFTs on an outpatient basis once his cardiac status has been determined. Qualifiers: COPD type: emphysema Emphysema type: panlobular Qualified Code(s): J43.1 - Panlobular emphysema (5) Allergic rhinitis SNOMED Code(s): 32094503 Code(s): J30.9 - ALLERGIC RHINITIS, UNSPECIFIED Status: Acute Priority: Medium Current Visit: Yes Onset Date: ~09/15/17 Annotation/Comment:: Probable beginning allergic rhinitis. IM Depo-Medrol to be given on admission. Trial with Flonase. Qualifiers: Allergic rhinitis trigger: unspecified Allergic rhinitis seasonality: unspecified seasonality Qualified Code(s): J30.9 - Allergic rhinitis, unspecified (6) Hyperlipidemia SNOMED Code(s): 79693822 Code(s): E78.5 - HYPERLIPIDEMIA, UNSPECIFIED Status: Chronic Priority: Medium Current Visit: Yes Annotation/Comment:: Currently under therapy. Glycosylated hemoglobin and lipid panel in the a.m. Qualifiers: Hyperlipidemia type: unspecified Qualified Code(s): E78.5 - Hyperlipidemia , unspecified (7) Hypertension SNOMED Code(s): 09328696 Code(s): I10 - ESSENTIAL (PRIMARY) HYPERTENSION Status: Chronic Priority : Medium Current Visit: Yes Annotation/Comment:: Blood pressure somewhat elevated in the emergency room on arrival. Low-dose IV Lopressor given as above. Continue to observe for now with close follow-up by his regular provider Qualifiers: Hypertension type: essential hypertension Qualified Code(s): I10 - Essential (primary) hypertension (8) Osteoarthritis SNOMED Code(s): 636887951 Code(s): M19.90 - UNSPECIFIED OSTEOARTHRITIS, UNSPECIFIED SITE Status: Chronic Priority: Medium Current Visit: Yes Annotation/Comment:: Otherwise stable by history with no recent gout attacks despite current elevated uric acid level. Qualifiers: Osteoarthritis location: multiple joints Osteoarthritis type: primary Qualified Code(s): M15.0 - Primary generalized (osteo)arthritis - Problem List Review Problem List Initiated/Reviewed/Updated: Yes - My Orders Last 24 Hours: My Active Orders 09/15/17 14:54 Cardiac Monitoring [RC] Q2HR EKG Documentation Completion [RC] ASDIRECTED Oxygen Therapy, ED [RC] CONTINUOUS Peripheral IV Care [RC] . DIRECTED Pulse Oximetry [RC] CONTINUOUS Up With Assistance [RC] PFP Vital Signs [RC] PFP Chest 1V Frontal [CR] Stat Sodium Chloride 0.9% [Saline Flush] 10 ml FLUSH ASDIRECTED PRN Obtain Past Medical Record [OM.PC] Urgent Peripheral IV Insertion Adult [OM.PC] Stat Resuscitation Status Stat 09/15/17 Breakfast Nothing per Oral Now Diet [DIET] - Assessment/Plan Admission H&P: Please use this note as an admission H&P Last 24 Hours: My Active Orders 09/15/17 14:54 Cardiac Monitoring [RC] Q2HR EKG Documentation Completion [RC] ASDIRECTED Oxygen Therapy, ED [RC] CONTINUOUS Peripheral IV Care [RC] . DIRECTED Pulse Oximetry [RC] CONTINUOUS Up With Assistance [RC] PFP Vital Signs [RC] PFP Chest 1V Frontal [CR] Stat Sodium Chloride 0.9% [Saline Flush] 10 ml FLUSH ASDIRECTED PRN Obtain Past Medical Record [OM.PC] Urgent Peripheral IV Insertion Adult [OM.PC] Stat Resuscitation Status Stat 09/15/17 Breakfast Nothing per Oral Now Diet [DIET] Assessment:: As above Plan: As above. Extensive precautions were given to the patient, who is in agreement with the treatment plan. The patient's condition is stable enough for observation status and general supervision.
[2017-09-15 15:35] LABS: CHLORIDE,CL 104 mmol/L (98-107); SODIUM,NA 138 mmol/L (136-145)
[2017-09-15] MEDS ORDERED: Acetaminophen 325 MG Tab PO PRN (16:44)
[2017-09-15] MEDS ORDERED: Temazepam 15 MG Cap PO PRN (16:44)
[2017-09-15] MEDS ORDERED: methylPREDNISolone Acetate 80 MG/ML SDV IM ONE (16:46)
[2017-09-15] MEDS ORDERED: Albuterol 0.083% 2.5 MG/3 ML Neb Soln INH PRN (16:46)
[2017-09-15] MEDS ORDERED: Albuterol/Ipratropium 3.0-0.5 MG/3 ML Neb Soln NEB PRN (16:46)
[2017-09-15] MEDS: Fluticasone Propionate Nasal Spray 16 GM Bottle NASBOTH SCH (17:29)
[2017-09-16] MEDS: Fluticasone Propionate Nasal Spray 16 GM Bottle NASBOTH SCH (07:19)
[2017-09-16 07:24] LABS: CHLORIDE,CL 105 mmol/L (98-107); SODIUM,NA 138 mmol/L (136-145)
[2017-09-16] MEDS ORDERED: Metoprolol Succinate 25 MG Tab.ER PO SCH (08:00)
[2017-09-16] MEDS ORDERED: Colchicine 0.6 MG Tab PO SCH (08:00)
[2017-09-16] MEDS ORDERED: Lisinopril 5 MG Tab PO SCH (08:00)
[2017-09-16] MEDS ORDERED: Ezetimibe 10 MG Tab PO SCH (08:00)
[2017-09-16] MEDS ORDERED: atorvaSTATin 40 MG Tab PO SCH (08:00)
[2017-09-16] MEDS ORDERED: Clopidogrel 75 MG Tab PO SCH (08:00)
[2017-09-16] MEDS ORDERED: Aspirin 81 MG Tab.EC PO SCH (08:00)
--- NOTE | 2017-09-16 11:01 | PCM.DCSUM1 ---
Discharge Summary - Hospital Course Brief History: Patient came to ER with complaint of feeling SOB, some chest discomfort. Hx of CAD. Diagnosis: Stroke: No - Discharge Data Discharge Date: 09/16/17 Discharge Disposition: Home, Self-Care 01 Condition: Good - Discharge Diagnosis/Problem(s) (1) Chest pain SNOMED Code(s): 64096725 ICD Code: R07.9 - CHEST PAIN, UNSPECIFIED Status: Acute Priority: High Current Visit: Yes Onset Date: 09/15/17 Problem Details: Pain-free since admission. Serial troponin/CKMB measurements negative. Differential includes GI (patient ate right before bed/possible GERD) as well as allergy (mowing grass in heat/dust prior to feeling poorly) as far as contributors to presenting complaints. Recommend patient follow up with Cardiology or primary MD regarding repeat Cardiolite stress test on an outpatient basis. Patient was encouraged to consider repeat test given yesterday's complaint along with his significant cardiac history. Qualifiers: Chest pain type: chest pain due to myocardial ischemia Ischemic chest pain type: stable angina pectoris Qualified Code(s): I20.8 - Other forms of angina pectoris (2) Allergic rhinitis SNOMED Code(s): 50193883 ICD Code: J30.9 - ALLERGIC RHINITIS, UNSPECIFIED Status: Acute Priority: Medium Current Visit: Yes Onset Date: ~09/15/17 Problem Details: Probable beginning allergic rhinitis. IM Depo-Medrol to be given on admission. Trial with Flonase. Qualifiers: Allergic rhinitis trigger: unspecified Allergic rhinitis seasonality: unspecified seasonality Qualified Code(s): J30.9 - Allergic rhinitis, unspecified (3) PAC (premature atrial contraction) SNOMED Code(s): 377851226 ICD Code: I49.1 - ATRIAL PREMATURE DEPOLARIZATION Status: Acute Priority : Medium Current Visit: Yes Onset Date: 09/15/17 Problem Details: Newly diagnosed with IV Lopressor as above. Continue current beta anastasiya therapy for now. (4) Coronary artery disease SNOMED Code(s): 70666643 ICD Code: I25.10 - ATHSCL HEART DISEASE OF [place] CORONARY ARTERY W/O ANG PCTRS Status: Chronic Priority: Medium Current Visit: Yes Problem Details: As above Qualifiers: Coronary Disease-Associated Artery/Lesion type: [place] artery [place] vs. transplanted heart: [place] heart Associated angina: without angina Qualified Code(s): I25.10 - Atherosclerotic heart disease of [place] coronary artery without angina pectoris (5) Hyperlipidemia SNOMED Code(s): 92769424 ICD Code: E78.5 - HYPERLIPIDEMIA, UNSPECIFIED Status: Chronic Priority: Medium Current Visit: Yes Problem Details: Currently under therapy. Cholesterol 139. Triglycerides elevated at 194. HDL 32. Qualifiers: Hyperlipidemia type: unspecified Qualified Code(s): E78.5 - Hyperlipidemia , unspecified (6) Hypertension SNOMED Code(s): 50129654 ICD Code: I10 - ESSENTIAL (PRIMARY) HYPERTENSION Status: Chronic Priority : Medium Current Visit: Yes Problem Details: BPs within good range since admission. Recommend continued follow-up by his regular provider Qualifiers: Hypertension type: essential hypertension Qualified Code(s): I10 - Essential (primary) hypertension (7) Osteoarthritis SNOMED Code(s): 782409288 ICD Code: M19.90 - UNSPECIFIED OSTEOARTHRITIS, UNSPECIFIED SITE Status: Chronic Priority: Medium Current Visit: Yes Problem Details: Otherwise stable by history with no recent gout attacks despite current elevated uric acid level. Qualifiers: Osteoarthritis location: multiple joints Osteoarthritis type: primary Qualified Code(s): M15.0 - Primary generalized (osteo)arthritis (8) Elevated hemoglobin A1c SNOMED Code(s): 048103614 ICD Code: R73.09 - OTHER ABNORMAL GLUCOSE Status: Chronic Priority: Medium Current Visit: Yes Problem Details: A1C noted to be 5.9 - Patient Summary/Data Complications: None Recommended Follow-up Testing/Procedures: Stress test. - Patient Instructions Diet: Heart Healthy Diet Activity: Rest and Relax Today Driving: May Drive Today Showering/Bathing: May Shower Notify Provider of: Increased Pain Other/Special Instructions: Follow up with your primary provider and/or Cardiology regarding scheduling for new stress test. Follow up otherwise as needed. Continue to observe for symptoms suggestive of heartburn/reflux as we discussed. - Discharge Plan Prescriptions/Med Rec: Ubidecarenone [Co Q-10] 150 mg PO DAILY #90 capsule Home Medications: Home Meds Clopidogrel Bisulfate [Clopidogrel] 75 mg PO DAILY 05/24/13 [History] Nitroglycerin [Nitrostat] 0.4 mg SL ASDIRECTED PRN 05/24/13 [History] Colchicine [Colcrys] 0.6 mg PO DAILY 01/30/17 [History] Aspirin [Halfprin] 81 mg PO DAILY 08/18/17 [History] Ezetimibe [Zetia] 10 mg PO DAILY 08/18/17 [History] Lisinopril 2.5 mg PO DAILY 08/18/17 [History] atorvaSTATin [Lipitor] 40 mg PO DAILY 08/18/17 [History] Metoprolol Succinate [Toprol XL] 12.5 mg PO DAILY 09/15/17 [History] Ubidecarenone [Co Q-10] 150 mg PO DAILY #90 capsule 09/16/17 [Rx] Patient Handouts: Screening for Type 2 Diabetes, Heartburn, [id number] Forms: ED Department Discharge Referrals: Letty Rush PA [Primary Care Provider] - - Discharge Summary/Plan Comment DC Time >30 min.: No - General Info Date of Service: 09/16/17 Admission Dx/Problem (Free Text: Patient pain-free. No complaints. Functional Status: Reports: Pain Controlled, Tolerating Diet, Ambulating, Urinating. Denies: New Symptoms - Review of Systems General: Reports: No Symptoms HEENT: Reports: No Symptoms Pulmonary: Reports: No Symptoms. Denies: Shortness of Breath Cardiovascular: Reports: No Symptoms. Denies: Chest Pain Gastrointestinal: Reports: No Symptoms Genitourinary: Reports: No Symptoms Musculoskeletal: Reports: No Symptoms (no acute changes from baseline) Skin: Reports: No Symptoms Neurological: Reports: No Symptoms Psychiatric: Reports: No Symptoms - Patient Data Vitals - Most Recent: Last Vital Signs Temp 36.7 C 09/16/17 07:41 Pulse 73 09/16/17 07:41 Resp 18 09/16/17 07:41 BP 128/67 09/16/17 07:41 Pulse Ox 98 09/16/17 07:41 Weight - Most Recent: 96.672 kg Lab Results - Last 24 hrs: Laboratory Results - last 24 hr 09/15/17 09/15/17 09/15/17 Range/Units 15:01 15:01 15:01 WBC 8.9 (4.0-10.2) K/uL RBC 4.48 (4.33-5.41) M/uL Hgb 13.8 (13.1-16.8) g/dL Hct 40.2 (39.0-49.0) % MCV 89.7 (84.0-98.0) fL MCH 30.8 (28.2-33.3) pg MCHC 34.3 (31.7-36.0) g/dL RDW 14.4 H (11.2-14.1) % Plt Count 213 (150-350) K/uL Neut % (Auto) 60.7 (45.0-80.0) % Lymph % (Auto) 22.3 (10.0-50.0) % [place] % (Auto) 14.2 H (2.0-14.0) % Eos % (Auto) 2.6 (0.0-5.0) % Baso % (Auto) 0.2 (0.0-2.0) % Neut # (Auto) 5.39 (1.40-7.00) K/uL Lymph # (Auto) 1.98 (0.50-3.50) K/uL [place] # (Auto) 1.26 H (0.00-1.00) K/uL Eos # (Auto) 0.23 (0.00-0.50) K/uL Baso # (Auto) 0.02 (0.00-0.20) K/uL PT 10.7 (9.8-11.7) SEC INR 1.0 APTT 24.9 (22.1-29.8) SEC D-Dimer, Quantitative 175 (0-400) ng/mL Sodium (136-145) mmol/L Potassium (3.5-5.1) mmol/L Chloride (98-107) mmol/L Carbon Dioxide (21.0-32.0) mmol/L BUN (7-18) mg/dL Creatinine (0.51-1.17) mg/dL Est Cr Clr Drug Dosing mL/min Estimated GFR (MDRD) mL/min Glucose (74-106) mg/dL Hemoglobin A1c (4.3-5.7) % Lactic Acid (0.4-2.0) mmol/L Uric Acid (2.6-7.2) mg/dL Calcium (8.5-10.1) mg/dL Magnesium (1.8-2.4) mg/dL Total Bilirubin (0.2-1.0) mg/dL AST (15-37) U/L ALT (12-78) U/L Alkaline Phosphatase (46-116) IU/L Creatine Kinase (26-308) U/L Creatine Kinase Index (0.0-2.5) % CK-MB (CK-2) (0.00-3.60) ng/mL Troponin I (0.000-0.056) ng/mL NT-Pro-B Natriuret Pep (0-125) pg/mL Total Protein (6.4-8.2) g/dL Albumin (3.4-5.0) g/dL Triglycerides (30-150) mg/dL Cholesterol (100-200) mg/dL LDL Cholesterol, Calc (0-100) mg/dL HDL Cholesterol (40-60) mg/dL TSH, Ultra Sensitive (0.358-3.740) mIU/mL 09/15/17 09/15/17 09/15/17 Range/Units 15:01 15:01 20:35 WBC (4.0-10.2) K/uL RBC (4.33-5.41) M/uL Hgb (13.1-16.8) g/dL Hct (39.0-49.0) % MCV (84.0-98.0) fL MCH (28.2-33.3) pg MCHC (31.7-36.0) g/dL RDW (11.2-14.1) % Plt Count (150-350) K/uL Neut % (Auto) (45.0-80.0) % Lymph % (Auto) (10.0-50.0) % [place] % (Auto) (2.0-14.0) % Eos % (Auto) (0.0-5.0) % Baso % (Auto) (0.0-2.0) % Neut # (Auto) (1.40-7.00) K/uL Lymph # (Auto) (0.50-3.50) K/uL [place] # (Auto) (0.00-1.00) K/uL Eos # (Auto) (0.00-0.50) K/uL Baso # (Auto) (0.00-0.20) K/uL PT (9.8-11.7) SEC INR APTT (22.1-29.8) SEC D-Dimer, Quantitative (0-400) ng/mL Sodium 138 (136-145) mmol/L Potassium 3.8 (3.5-5.1) mmol/L Chloride 104 (98-107) mmol/L Carbon Dioxide 25.5 (21.0-32.0) mmol/L BUN 22 H (7-18) mg/dL Creatinine 1.20 H (0.51-1.17) mg/dL Est Cr Clr Drug Dosing 60.44 mL/min Estimated GFR (MDRD) > 60 mL/min Glucose 102 (74-106) mg/dL Hemoglobin A1c (4.3-5.7) % Lactic Acid 0.8 (0.4-2.0) mmol/L Uric Acid 8.0 H (2.6-7.2) mg/dL Calcium 9.2 (8.5-10.1) mg/dL Magnesium 2.0 (1.8-2.4) mg/dL Total Bilirubin 0.6 (0.2-1.0) mg/dL AST 21 (15-37) U/L ALT 34 (12-78) U/L Alkaline Phosphatase 35 L (46-116) IU/L Creatine Kinase 252 222 (26-308) U/L Creatine Kinase Index 1.2 1.0 (0.0-2.5) % CK-MB (CK-2) 3.00 2.30 (0.00-3.60) ng/mL Troponin I 0.000 0.000 (0.000-0.056) ng/mL NT-Pro-B Natriuret Pep 47 (0-125) pg/mL Total Protein 7.6 (6.4-8.2) g/dL Albumin 3.9 (3.4-5.0) g/dL Triglycerides (30-150) mg/dL Cholesterol (100-200) mg/dL LDL Cholesterol, Calc (0-100) mg/dL HDL Cholesterol (40-60) mg/dL TSH, Ultra Sensitive 1.788 (0.358-3.740) mIU/mL 09/16/17 09/16/17 09/16/17 Range/Units 06:34 06:34 06:34 WBC 10.6 H (4.0-10.2) K/uL RBC 4.65 (4.33-5.41) M/uL Hgb 14.3 (13.1-16.8) g/dL Hct 41.7 (39.0-49.0) % MCV 89.7 (84.0-98.0) fL MCH 30.8 (28.2-33.3) pg MCHC 34.3 (31.7-36.0) g/dL RDW 14.4 H (11.2-14.1) % Plt Count 222 (150-350) K/uL Neut % (Auto) 70.2 (45.0-80.0) % Lymph % (Auto) 17.9 (10.0-50.0) % [place] % (Auto) 9.9 (2.0-14.0) % Eos % (Auto) 1.8 (0.0-5.0) % Baso % (Auto) 0.2 (0.0-2.0) % Neut # (Auto) 7.47 H (1.40-7.00) K/uL Lymph # (Auto) 1.90 (0.50-3.50) K/uL [place] # (Auto) 1.05 H (0.00-1.00) K/uL Eos # (Auto) 0.19 (0.00-0.50) K/uL Baso # (Auto) 0.02 (0.00-0.20) K/uL PT (9.8-11.7) SEC INR APTT (22.1-29.8) SEC D-Dimer, Quantitative (0-400) ng/mL Sodium 138 (136-145) mmol/L Potassium 4.3 (3.5-5.1) mmol/L Chloride 105 (98-107) mmol/L Carbon Dioxide 23.8 (21.0-32.0) mmol/L BUN 19 H (7-18) mg/dL Creatinine 1.07 (0.51-1.17) mg/dL Est Cr Clr Drug Dosing 67.61 mL/min Estimated GFR (MDRD) > 60 mL/min Glucose 118 H (74-106) mg/dL Hemoglobin A1c 5.9 H (4.3-5.7) % Lactic Acid (0.4-2.0) mmol/L Uric Acid (2.6-7.2) mg/dL Calcium 9.1 (8.5-10.1) mg/dL Magnesium (1.8-2.4) mg/dL Total Bilirubin 0.8 (0.2-1.0) mg/dL AST 18 (15-37) U/L ALT 30 (12-78) U/L Alkaline Phosphatase 29 L (46-116) IU/L Creatine Kinase 183 (26-308) U/L Creatine Kinase Index 0.9 (0.0-2.5) % CK-MB (CK-2) 1.60 (0.00-3.60) ng/mL Troponin I 0.000 (0.000-0.056) ng/mL NT-Pro-B Natriuret Pep (0-125) pg/mL Total Protein 7.4 (6.4-8.2) g/dL Albumin 3.7 (3.4-5.0) g/dL Triglycerides 194 H (30-150) mg/dL Cholesterol 139 (100-200) mg/dL LDL Cholesterol, Calc 68 (0-100) mg/dL HDL Cholesterol 32 L (40-60) mg/dL TSH, Ultra Sensitive (0.358-3.740) mIU/mL Med Orders - Current: Current Medications Acetaminophen (Tylenol) 650 mg PO Q4H PRN PRN Reason: Pain Last Admin: 09/16/17 10:16 Dose: 650 mg Albuterol (Proventil Neb Soln) 2.5 mg INH Q2H PRN PRN Reason: SHORTNESS OF BREATH Albuterol/Ipratropium (Duoneb 3.0-0.5 Mg/3 Ml) 3 ml NEB Q4HRRT PRN PRN Reason: Dyspnea Last Admin: 09/15/17 17:40 Dose: 3 ml Aspirin (Halfprin) 81 mg PO DAILY [facility] Last Admin: 09/16/17 07:18 Dose: 81 mg Atorvastatin Calcium (Lipitor) 40 mg PO DAILY [facility] Last Admin: 09/16/17 07:18 Dose: 40 mg Clopidogrel Bisulfate (Plavix) 75 mg PO DAILY [facility] Last Admin: 09/16/17 07:18 Dose: 75 mg Colchicine (Colcrys) 0.6 mg PO DAILY [facility] Last Admin: 09/16/17 07:18 Dose: 0.6 mg Ezetimibe (Zetia) 10 mg PO DAILY [facility] Last Admin: 09/16/17 07:18 Dose: 10 mg Fluticasone Propionate (Flonase) 0 gm NASBOTH DAILY [facility] Last Admin: 09/16/17 07:19 Dose: 1 spray Lisinopril (Prinivil) 2.5 mg PO DAILY [facility] Last Admin: 09/16/17 07:18 Dose: 2.5 mg Metoprolol Succinate (Toprol Xl) 12.5 mg PO DAILY [facility] Last Admin: 09/16/17 07:18 Dose: 12.5 mg Sodium Chloride (Saline Flush) 10 ml FLUSH ASDIRECTED PRN PRN Reason: Keep Vein Open Last Admin: 09/15/17 15:18 Dose: 10 ml Sodium Chloride (Saline Flush) 10 ml FLUSH Q12HR PRN PRN Reason: Keep Vein Open Temazepam (Restoril) 15 mg PO BEDTIME PRN PRN Reason: Insomnia Discontinued Medications Aspirin (Aspirin) 324 mg CHEW ONETIME ONE Stop: 09/15/17 14:55 Last Admin: 09/15/17 15:11 Dose: 324 mg Famotidine (Pepcid) 40 mg IVPUSH ONETIME ONE Stop: 09/15/17 14:55 Last Admin: 09/15/17 15:12 Dose: 40 mg Methylprednisolone Acetate (Depo-Medrol) 80 mg IM ONETIME ONE Stop: 09/15/17 16:47 Last Admin: 09/15/17 17:29 Dose: 80 mg Metoprolol Tartrate (Lopressor) 2.5 mg IVPUSH ONETIME ONE Stop: 09/15/17 14:55 Last Admin: 09/15/17 15:12 Dose: 2.5 mg Metoprolol Tartrate (Lopressor) 2.5 mg IVPUSH ONETIME ONE Stop: 09/15/17 15:06 Last Admin: 09/15/17 15:18 Dose: Not Given Ticagrelor (Brilinta) 180 mg PO ONETIME ONE Stop: 09/15/17 14:55 Last Admin: 09/15/17 15:12 Dose: 180 mg - Exam General: Reports: Alert, Oriented HEENT: Reports: Pupils Equal, Pupils Reactive, EOMI, Mucous Membr. Moist/[place] Neck: Reports: Supple Lungs: Reports: Clear to Auscultation, Normal Respiratory Effort Cardiovascular: Reports: Regular Rate, Regular Rhythm GI/Abdominal Exam: Normal Bowel Sounds, Soft, Non-Tender, No Distention (Male) Exam: Deferred Rectal (Males) Exam: Deferred Back Exam: Denies: CVA Tenderness (L), CVA Tenderness (R) Extremities: Normal Capillary Refill Skin: Reports: Warm, Dry, Intact Neurological: Reports: No New Focal Deficit Psy/Mental Status: Reports: Alert, Normal Affect, Normal Mood EKG INTERPRETATION EKG Date: 09/16/17 Time: 07:32 Rhythm: Other (sinus) Rate (Beats/Min): 72 [place]: Normal P-Wave: Present QRS: Normal ST-T: Normal QT: Normal Comparison: Other: (Morphology is same as noted on yesterday's EKG, however intermittent PACs noted.)
== END 2017-09-16 12:03 | disposition home or self-care (01) ==
LOC: LL.ED 14:51 → LL.MS 16:04
PROVIDERS: ADMIT Family Medicine; ATTEND Family Medicine
DX: I25.118 Atherosclerotic heart disease of native coronary artery with other forms of angina pectoris (principal); J30.9 Allergic rhinitis, unspecified; I49.1 Atrial premature depolarization; E78.5 Hyperlipidemia, unspecified; M15.0 Primary generalized (osteo)arthritis; E78.00 Pure hypercholesterolemia, unspecified; I25.2 Old myocardial infarction; J44.9 Chronic obstructive pulmonary disease, unspecified; J84.10 Pulmonary fibrosis, unspecified; N40.0 Benign prostatic hyperplasia without lower urinary tract symptoms; I12.9 Hypertensive chronic kidney disease with stage 1 through stage 4 chronic kidney disease, or unspecified chronic kidney disease; N18.9 Chronic kidney disease, unspecified; M10.9 Gout, unspecified; F41.9 Anxiety disorder, unspecified; F32.9 Major depressive disorder, single episode, unspecified; E66.9 Obesity, unspecified; Z68.35 Body mass index [BMI] 35.0-35.9, adult; Z79.02 Long term (current) use of antithrombotics/antiplatelets; Z79.82 Long term (current) use of aspirin; Z79.899 Other long term (current) drug therapy; Z95.5 Presence of coronary angioplasty implant and graft
CPT/HCPCS: 36415; 71045; 80053; 80061; 82550; 82553; 83036; 83605; 83735; 83880; 84443; 84484; 84550; 85025; 85379; 85610; 85730; 93005; 94640; 96374; 96375; 99285; A9270-GY; J1040; J3490; J7050; S0028

== ENCOUNTER 2018-10-25 15:26 | Observation (INO) | payer BC ==
--- NOTE | 2018-10-25 15:35 | EDM.PDOC ---
ED HPI GENERAL MEDICAL PROBLEM - General Chief Complaint: Chest Pain Stated Complaint: intermittened chest pain Time Seen by Provider: 10/25/18 15:30 Source of Information: Reports: Patient, Old Records ([facility] chart/EMR), Other ([place] EMR) - History of Present Illness INITIAL COMMENTS - FREE TEXT/NARRATIVE: Patient drove himself to the emergency room via private automobile for evaluation of retrosternal 5/10 chest pressure with some radiation to the intrascapular region and the left shoulder, including some paresthesias in his left shoulder and proximal arm. Symptoms woke him up at about 4 AM this morning with no other medications taken to this point other than his regular morning medications. He does have some mild diaphoresis and dyspnea with the above symptoms. Note significant previous cardiac history as below. Note that the patient was hospitalized in this facility on 09/15/17 with similar type symptoms , however no subsequent workup to this point. The patient denies any heart flutter, dizziness, orthostasis, orthopnea, recent decreased exercise tolerance , or any other anginal-type symptoms. No recent history of abdominal pain, heartburn, nausea, diarrhea, melena, gross hematochezia, or any food intolerance , including fatty foods, etc. with normal bowel movement earlier this morning. He denies any gross hematuria, colic, UTI symptoms. The patient also denies any recent fever, cough, wheezing, dyspnea, etc.. His comfort usually only lasts for a few seconds however multiple episodes this morning. Onset: Today, Sudden Onset Date: 10/25/18 Onset Time: 04:00 Duration: Getting Worse, Intermittent Location: Reports: Chest, Back, Upper Extremity, Left, Radiates to (As above). Denies: Head, Face, Abdomen, Upper Extremity, Right Quality: Reports: Pressure, Same as Previous Episode Severity: Moderate Improves with: Reports: None Worsens with: Reports: None Context: Reports: Other (As above). Denies: Sick Contact, Trauma Associated Symptoms: Reports: Chest Pain, Diaphoresis, Rash (Postoperative cellulitis- right wrist ), Shortness of Breath. Denies: Confusion, Cough, cough w sputum, Fever/Chills, Headaches, Loss of Appetite, Malaise, Nausea/ Vomiting, Seizure, Syncope, Weakness Treatments SHED BOSS: Reports: Other (see below) (None) Mid-Sternal Chest Pain Score (Numeric/FACES): 5 - Related Data Allergies Allergy/AdvReac Type Severity Reaction Status Date / Time No Known Allergies Allergy Verified 09/15/17 16:29 Home Meds: Home Meds Acetaminophen [Tylenol] 650 mg PO DAILY 10/25/18 [History] Clopidogrel [Plavix] 1 tab PO DAILY 10/25/18 [History] Colchicine 0.6 mg PO DAILY 10/25/18 [History] Ezetimibe [Zetia] 10 mg PO DAILY 10/25/18 [History] Lisinopril [Prinivil] 2.5 mg PO DAILY 10/25/18 [History] Metoprolol Succinate [Toprol XL] 0.5 tab PO DAILY 10/25/18 [History] Nitroglycerin [Nitrostat] 1 tab SL Q5M PRN 10/25/18 [History] atorvaSTATin Calcium [Lipitor] 1 tab PO DAILY 10/25/18 [History] traMADol [Ultram] 1 - 2 tab PO Q4HR PRN 10/25/18 [History] Past Medical History HEENT History: Reports: Allergic Rhinitis, Impaired Vision, Other (See Below). 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 Denies: Afib, Angina, Blood Clots/VTE/DVT, Heart Failure, Heart Murmur, PVD, Syncope Other Cardiovascular History: PACs. History of probable multiple MIs since 2010 , including on 02/18/11 and 12/06/12 with multiple stents as below. Mild cardiomegaly with borderline ischemic cardiomyopathy and grade 1 diastolic dysfunction by echocardiogram. Respiratory History: Reports: COPD, Intubation, Previous, Pulmonary Fibrosis, Other (See Below). Denies: Asthma, Bronchitis, Recurrent, Intubation, Difficult , PE, Pneumonia, Recurrent, Pneumothorax, Sleep Apnea, TB Other Respiratory History: COPD and pulmonary fibrosis by chest x-ray with no current medical therapy. Gastrointestinal History: Reports: Cholelithiasis, Colon Polyp, Other (See Below ). Denies: Celiac Disease, Chronic Constipation, Chronic Diarrhea, Diverticulosis, Fecal Incontinence, Gastritis, GERD, GI Bleed, Hepatitis, Hiatal Hernia, Inflammatory Bowel Disease, Irritable Bowel Syndrome, Jaundice, Pancreatitis, PUD Other Gastrointestinal History: Tubular adenoma of the colon excised on 05/24/13. Gallbladder polyp. Cholelithiasis requiring surgery as below. Fatty liver secondary to hyperlipidemia. Genitourinary History: Reports: BPH, Chronic Renal Insuffiency, Other (See Below ). Denies: Acute Renal Failure, Renal Calculus, Retention, Urinary, STD, Urinary Incontinence, UTI, Recurrent Other Genitourinary History: Stage III renal insufficiency. Musculoskeletal History: Reports: Arthritis, Back Pain, Chronic, Fracture, Gout , Neck Pain, Chronic, Osteoarthritis. Denies: Amputation, Osteoporosis, RA, SLE Other Musculoskeletal History: Right-sided carpal tunnel syndrome with surgery as below. Previous pelvic fracture in 2004 with surgery as below. Bilateral olecranon bursitis requiring surgery as below. Right shoulder rotator cuff tear requiring surgery as below. Bilateral calcaneal spurs. Left elbow fracture in March 2009. Avulsion fracture of the middle phalanx of digit #4 of the right hand on 10/24/02. Neurological History: Reports: None. Denies: Brain Injury, Cerebral Aneurysms, Concussion, Headaches, Chronic, Head Trauma, Migraines, MS, Parkinson's, Seizure , TIA, Vertigo Psychiatric History: Reports: Anxiety, Depression. Denies: Abuse, Victim of, ADD, ADHD, Addiction, Dementia, Psych Hospitalization(s), Psychosis, PTSD, Suicide Attempt, Suicidal Ideation Endocrine/Metabolic History: Reports: Obesity/BMI 30+. Denies: Diabetes, Type I , Diabetes, Type II, Diabetes Mellitus, Type 3c, Hypothyroidism, IDDM, Osteopenia, Osteoporosis Hematologic History: Reports: None. Denies: Anemia, Blood Transfusion(s), Iron Deficiency Immunologic History: Reports: None. Denies: AIDS, HIV, SLE Oncologic (Cancer) History: Reports: None. Denies: Basal Cell Carcinoma, Colon , Hodgkin's Lymphoma, Leukemia, Lymphoma, Malignant Melanoma, Non-Hodgkin's Lymphoma, Prostate, Squamous Cell Carcinoma Dermatologic History: Reports: None. Denies: Eczema, Psoriasis - Infectious Disease History Infectious Disease History: Reports: Chicken Pox, Measles, Mumps. Denies: C- Difficile, Meningitis, Mononucleosis, MRSA, Pertussis (Whooping Cough), Rheumatic Fever, Rubella, Scarlet Fever, Shingles, TB, VRE - Past Surgical History Head Surgeries/Procedures: Reports: None HEENT Surgical History: Reports: Oral Surgery, Other (See Below). Denies: Adenoidectomy, Cataract Surgery, Eye Surgery, Laser Surgery, LASIK, Myringotomy w Tube(s), Naso-Sinus Surgery, Tonsillectomy Other HEENT Surgeries/Procedures: Wallace teeth extraction 4 in the with additional multiple teeth extractions. Cardiovascular Surgical History: Reports: Coronary Artery Stent, Percutaneous Transluminal Angioplasty, Other (See Below). Denies: Coronary Artery Bypass, Pacer, Varicose Other Cardiovascular Surgeries/Procedures: By patient history Multiple previous PTCA/drug-eluting stents since 2010 with patient estimating a total of 10 stents in 3 separate cardiac procedures. Per [place] records patient did have a PTCA/stent 2 of previous stent thrombosis in the mid LAD on 01/31/17 with additional PTCA/stent of the first obtuse marginal and PTCA only of the first diagonal coronary artery. PTCA/stent of the first posterolateral segmental coronary artery on 07/15/14. Respiratory Surgical History: Reports: None. Denies: Thoracentesis GI Surgical History: Reports: Cholecystectomy, Colonoscopy, Hernia, Abdominal, Polypectomy, Other (See Below). Denies: Appendectomy, Hernia, Inguinal, Hernia Repair/Other Other GI Surgeries/Procedures: Initial colonoscopy on 05/24/13 with polypectomy. Laparoscopic cholecystectomy with concomitant umbilical hernia repair on Male Surgical History: Reports: Circumcision, Other (See Below). Denies: TURP-Transurethral Resection of Prostate, Vasectomy Other Male Surgeries/Procedures: Circumcision as an . Endocrine Surgical History: Reports: None. Denies: Thyroid Biopsy Neurological Surgical History: Reports: None. Denies: C-Spine, Discectomy, Intracranial, Laminectomy, Lumbar Spine, Sacral Spine, Spinal Fusion, Thoracic Spine, Vertebroplasty Musculoskeletal Surgical History: Reports: Carpal Tunnel, ORIF, Shoulder Surgery , Other (See Below). Denies: Arthroscopic Procedure, Ganglion Cyst, Joint Replacement Other Musculoskeletal Surgeries/Procedures:: Right carpal tunnel release on 07/13. Right shoulder rotator cuff repair in 2007. ORIF of the pubic symphysis on 09/25/04. Left olecranon bursa excision on 05/11/04 with right olecranon bursa excision in March 2002. Left elbow fusion secondary to fracture in March 2009. Oncologic Surgical History: Reports: None Dermatological Surgical History: Reports: None - Past Imaging History Past Imaging History: Reports: Angiography (Multiple heart catheterizations last on 01/31/17 at time of repeat cardiac stents as above with heart catheterizations on 01/30/17, 07/15/14, and 12/07/12.), Cardiac Echo (Last echocardiogram on 01/30/17 with ejection fraction of 65% with previous echocardiogram on 07/16/14 and 02/08/11 with ejection fraction of 56%.), Carotid US (Carotid artery Doppler studies on 03/11/11 and 05/07/08), CAT Scan (CT of the chest on 06/19/13. CT of the brain on 07/15/08 and 05/07/08.), MRI (MRI of the right shoulder on 04/10/07. MRI of the brain on 10/29/09.), PFT (PFTs with diffusion studies on 06/19/13.), Stress Testing (Last Cardiolite stress test on 10/21/15 with ejection fraction of 61%. Previous Cardiolite stress test on 02/26/15 and 01/08/11 with ejection fraction of 46%. Low level stress tests on 08/16/14, 02/16/17, and 02/16/11.), Ultrasound (Abdominal ultrasound on 09/29/11.), Other ( See Below) (EMG and nerve conduction studies of the wrists on 06/21/18.) Social & Family History - Family History HEENT: Reports: None. Denies: Allergic Rhinitis, Glaucoma, Macular Degeneration , Retinal Detachment Cardiac: Reports: Arrhythmia, CAD, HI, Pacemaker, Stent, Other (See Below). Denies: Aneurysm, Blood Clots/VTE/DVT, Heart Failure, High Cholesterol, Hypertension, PVD/COD Other Cardiac Family History: Father with history of pacemaker history of syncope, unknown type of arrhythmia, previous PTCA/stents and possible HI in his 70s. Brothers 2 with PTCA/stents and possible HI both in their 50s. Respiratory: Reports: None. Denies: Asthma, COPD, PE, Pneumothorax, Sleep Apnea GI: Reports: None. Denies: Celiac Disease, Cholelithiasis, Colon Polyps, GERD, GI bleed, Inflammatory Bowel Disease, Irritable Bowel Syndrome, PUD : Reports: None. Denies: Dialysis, Renal Calculus, Renal Disease/ Insufficiency OBGYN: Reports: None. Denies: Endometriosis, Recurrent Spontaneous Musculoskeletal: Reports: None. Denies: Arthritis, Gout, Osteoarthritis, RA, SLE Neurological: Reports: CVA, Other (See Below). Denies: Alzheimers Disease, Cerebral Aneurysms, Dementia, Migraines, MS, Parkinson's, Seizure, TIA Other Neurological Family History: Father with CVA in his 70s. Paternal grandfather with fatal CVA in his 70s. Psychiatric: Reports: None. Denies: Abuse, Victim of, ADD, ADHD, Anxiety, Depression, Psych Hospitalization(s), PTSD, Suicide Attempt Endocrine/Metabolic: Reports: Diabetes, type II, IDDM, Other (See Below). Denies: Diabetes, Type I, Diabetes Mellitus, Type 3c, Hypothyroidism Other Endocrine/Metabolic Family History: Maternal grandmother and sister with IDDM Hematologic: Reports: None. Denies: Anemia, SLE, Transfusion Reaction Immunologic: Reports: None. Denies: AIDS, HIV, SLE Dermatologic: Reports: None. Denies: Eczema, Psoriasis Oncologic: Reports: Lung, Skin, Other (See Below). Denies: Colon, Hodgkin's Lymphoma, Leukemia, Lymphoma, Non-Hodgkin's Lymphoma, Prostate Other Oncologic Family History: Brother with fatal lung cancer at age 61 with history of tobacco use. Maternal grandmother with unknown type of fatal cancer in her 70s. Niece with fatal bone cancer at age 13. Father with unknown type of skin cancer. - Tobacco Use Smoking Status *Q: Never Smoker Tobacco Use Within Last Twelve Months: No Used Tobacco, but Quit: No Smoking Cessation Information Provided To Patient: No Second Hand Smoke Exposure: No Second Hand Smoke Education Provided: No - Caffeine Use Caffeine Use: Reports: Soda (15 sodas per day). Denies: Coffee, Energy Drinks, Tea - Alcohol Use Alcohol Use History: Yes Days Per Week of Alcohol Use: 0 Number of Drinks Per Day: 3 Number of Drinks Per Day Comment: DWI at age 21 with no previous problems with alcohol abuse, treatment, etc. Patient usually drinks vodka, mixed drinks, etc. for holidays etc. Total Drinks Per Week: 0 Alcohol Use in Last Twelve Months: Yes - Recreational Drug Use Recreational Drug Use: No Drug Use in Last 12 Months: No Recreational Drug Type: Denies: Amphetamines (Speed), Cocaine, Heroin, Inhalants (Glues, Solvents, Aerosols), LSD (Acid), Marijuana/Hashish, Methamphetamine, Morphine, Oxycodone - Living Situation & Occupation Living situation: Reports: Single (No children), Alone Occupation: Employed ([employer] and works in the [employer] in [place]) ED ROS GENERAL - Review of Systems Review Of Systems: ROS reveals no pertinent complaints other than HPI. ED EXAM, GENERAL - Physical Exam Exam: See Below Exam Limited By: No Limitations General Appearance: Alert, WD/WN, No Apparent Distress Eye Exam: Bilateral Eye: EOMI, Normal Inspection (No nystagmus. Patient wearing glasses), PERRL Ears: Normal External Exam, Normal Canal, Hearing Grossly Normal, Normal TMs Nose: Normal Inspection, Normal Mucosa, No Blood Throat/Mouth: Normal Inspection, Normal Lips, Normal Teeth (Multiple missing teeth with no acute infection), Normal Gums, Normal Oropharynx, Normal Voice, No Airway Compromise. No: Dysphagia, Perioral Cyanosis Head: Atraumatic, Normocephalic. No: Facial Swelling, Facial Tenderness, Sinus Tenderness Neck: Normal Inspection, Supple, Non-Tender, Full Range of Motion. No: Carotid Bruit, Lymphadenopathy (L), Lymphadenopathy (R), Thyromegaly Respiratory/Chest: No Respiratory Distress, Lungs Clear, Normal Breath Sounds, No Accessory Muscle Use, Chest Non-Tender. No: Pleural Rub, Retractions Cardiovascular: Normal Peripheral Pulses, No Edema, No Gallop, No JVD, No Murmur , No Rub, Extra Beats (Occasional PACs by monitor. Regular rate). No: Gallop/S3 , Gallop/S4, Friction Rub Peripheral Pulses: 2+: Radial (L), Dorsalis Pedis (L), Dorsalis Pedis (R) GI/Abdominal: Normal Bowel Sounds, Soft, Non-Tender, No Organomegaly, No Distention, No Abnormal Bruit, No Mass, Pelvis Stable, Other (Obese). No: Guarding (Male) Exam: Deferred Rectal (Males) Exam: Deferred Back Exam: Normal Inspection, Full Range of Motion. No: CVA Tenderness (L), CVA Tenderness (R), Muscle Spasm Extremities: No Pedal Edema, Other (Right Upper respiratory dressing and history of wound dehiscence and mild cellulitis). No: Osiel's Sign Neurological: Alert, Oriented, CN II-XII Intact, Normal Cognition, Normal Gait, Normal Reflexes (Negative Babinski's), No Motor/Sensory Deficits Psychiatric: Normal Affect, Normal Mood Skin Exam: Warm, Dry, Intact, Wound/Incision (As above) Lymphatic: No Adenopathy EKG INTERPRETATION EKG Date: 10/25/18 Time: 15:37 Rhythm: Other (Occasional PACs) Rate (Beats/Min): 82 [place]: Normal (Cardiac axis) P-Wave: Enlarged (Diffuse biphasic P waves) QRS: Other (QRS interval of 0.09 seconds with some repolarization changes) ST-T: Normal DE/PQ Interval: 0.18 seconds Comparison: No Change (Last EKG on 09/16/17) EKG Interpretation Comments: Note that agreed with suspicions of possible right acute ventricular HI with subsequent repeat posterior/right ventricular EKG conducted at 15:46 hours. Note evidence of T wave inversions in leads V3, V4, and 3. Note telephone consultation with carbon capture power plant operator in [place] as below with no significant findings by her evaluations of faxed EKGs 2. Course - Vital Signs Last Recorded V/S: Last Vital Signs Temp 36.5 C 10/25/18 15:29 Pulse 75 10/25/18 16:23 Resp 16 10/25/18 16:07 BP 148/88 H 10/25/18 16:23 Pulse Ox 96 10/25/18 16:23 Vital Signs - 24 hr 10/25/18 10/25/18 10/25/18 15:29 15:36 15:53 Temperature [ 36.5 C Oral] Pulse, 74 76 Peripheral [ Pulse Oximetry] Respiratory 20 13 Rate Blood Pressure 154/84 H 125/57 L [Left Arm] O2 Sat by Pulse 97 Oximetry O2 Sat by Pulse 97 Oximetry [Room Air] 10/25/18 10/25/18 10/25/18 16:07 16:23 16:53 Temperature [ Oral] Pulse, 77 75 Peripheral [ Pulse Oximetry] Respiratory 16 Rate Blood Pressure 143/84 H 148/88 H 141/108 H [Left Arm] O2 Sat by Pulse 97 96 Oximetry O2 Sat by Pulse Oximetry [Room Air] 10/25/18 17:03 Temperature [ Oral] Pulse, 85 Peripheral [ Pulse Oximetry] Respiratory 13 Rate Blood Pressure 146/80 H [Left Arm] O2 Sat by Pulse 97 Oximetry O2 Sat by Pulse Oximetry [Room Air] - Orders/Labs/Meds Orders: Active Orders 24 hr Category Date Time Status Cardiac Monitoring [RC] . DIRECTED Care 10/25/18 15:36 Active EKG Documentation Completion [RC] ASDIRECTED Care 10/25/18 15:36 Active EKG Documentation Completion [RC] ASDIRECTED Care 10/25/18 15:42 Active Oxygen Therapy, ED [RC] PRN Care 10/25/18 15:36 Active Peripheral IV Care [RC] . DIRECTED Care 10/25/18 15:36 Active Pulse Oximetry [RC] CONTINUOUS Care 10/25/18 15:36 Active Up With Assistance [RC] PFP Care 10/25/18 15:36 Active Vital Signs [RC] PFP Care 10/25/18 15:36 Active Nothing per Oral Now Diet [DIET] Diet 10/25/18 Breakfast Active Chest 1V Frontal [CR] Stat Exams 10/25/18 15:36 Taken Sodium Chloride 0.9% [Saline Flush] Med 10/25/18 15:36 Active 10 ml FLUSH ASDIRECTED PRN Obtain Past Medical Record [OM.PC] Urgent Oth 10/25/18 15:36 Active Peripheral IV Insertion Adult [OM.PC] Stat Oth 10/25/18 15:36 Ordered Resuscitation Status Stat Resus Stat 10/25/18 15:36 Ordered Medication Orders Sodium Chloride (Saline Flush) 10 ml FLUSH ASDIRECTED PRN PRN Reason: Keep Vein Open Last Admin: 10/25/18 15:49 Dose: 10 ml Labs: Laboratory Tests 10/25/18 10/25/18 10/25/18 Range/Units 15:48 15:48 15:48 WBC 9.1 (4.0-10.2) K/uL RBC 4.46 (4.33-5.41) M/uL Hgb 14.0 (13.1-16.8) g/dL Hct 40.5 (39.0-49.0) % MCV 90.8 (84.0-98.0) fL MCH 31.4 (28.2-33.3) pg MCHC 34.6 (31.7-36.0) g/dL RDW 14.3 H (11.2-14.1) % Plt Count 236 (150-350) K/uL Neut % (Auto) 60.9 (45.0-80.0) % Lymph % (Auto) 25.7 (10.0-50.0) % [place] % (Auto) 10.0 (2.0-14.0) % Eos % (Auto) 3.3 (0.0-5.0) % Baso % (Auto) 0.1 (0.0-2.0) % Neut # (Auto) 5.57 (1.40-7.00) K/uL Lymph # (Auto) 2.35 (0.50-3.50) K/uL [place] # (Auto) 0.91 (0.00-1.00) K/uL Eos # (Auto) 0.30 (0.00-0.50) K/uL Baso # (Auto) 0.01 (0.00-0.20) K/uL PT 10.5 (9.5-12.0) SEC INR 1.0 APTT 27.6 (21.0-31.3) SEC D-Dimer, Quantitative 181 (0-400) ng/mL Sodium (136-145) mmol/L Potassium (3.5-5.1) mmol/L Chloride (98-107) mmol/L Carbon Dioxide (21.0-32.0) mmol/L BUN (7-18) mg/dL Creatinine (0.51-1.17) mg/dL Est Cr Clr Drug Dosing mL/min Estimated GFR (MDRD) mL/min Glucose (74-106) mg/dL Lactic Acid (0.4-2.0) mmol/L Uric Acid (2.6-7.2) mg/dL Calcium (8.5-10.1) mg/dL Magnesium (1.8-2.4) mg/dL Total Bilirubin (0.2-1.0) mg/dL AST (15-37) U/L ALT (12-78) U/L Alkaline Phosphatase (46-116) IU/L Creatine Kinase (26-308) U/L Creatine Kinase Index (0.0-2.5) % CK-MB (CK-2) (0.00-3.60) ng/mL Troponin I (0.000-0.056) ng/mL NT-Pro-B Natriuret Pep (0-125) pg/mL Total Protein (6.4-8.2) g/dL Albumin (3.4-5.0) g/dL TSH, Ultra Sensitive (0.358-3.740) mIU/mL 10/25/18 10/25/18 Range/Units 15:48 15:48 WBC (4.0-10.2) K/uL RBC (4.33-5.41) M/uL Hgb (13.1-16.8) g/dL Hct (39.0-49.0) % MCV (84.0-98.0) fL MCH (28.2-33.3) pg MCHC (31.7-36.0) g/dL RDW (11.2-14.1) % Plt Count (150-350) K/uL Neut % (Auto) (45.0-80.0) % Lymph % (Auto) (10.0-50.0) % [place] % (Auto) (2.0-14.0) % Eos % (Auto) (0.0-5.0) % Baso % (Auto) (0.0-2.0) % Neut # (Auto) (1.40-7.00) K/uL Lymph # (Auto) (0.50-3.50) K/uL [place] # (Auto) (0.00-1.00) K/uL Eos # (Auto) (0.00-0.50) K/uL Baso # (Auto) (0.00-0.20) K/uL PT (9.5-12.0) SEC INR APTT (21.0-31.3) SEC D-Dimer, Quantitative (0-400) ng/mL Sodium 136 (136-145) mmol/L Potassium 4.3 (3.5-5.1) mmol/L Chloride 103 (98-107) mmol/L Carbon Dioxide 26.0 (21.0-32.0) mmol/L BUN 15 (7-18) mg/dL Creatinine 1.10 (0.51-1.17) mg/dL Est Cr Clr Drug Dosing 65.10 mL/min Estimated GFR (MDRD) > 60 mL/min Glucose 160 H (74-106) mg/dL Lactic Acid 1.4 (0.4-2.0) mmol/L Uric Acid 8.8 H (2.6-7.2) mg/dL Calcium 9.0 (8.5-10.1) mg/dL Magnesium 2.1 (1.8-2.4) mg/dL Total Bilirubin 0.5 (0.2-1.0) mg/dL AST 22 (15-37) U/L ALT 39 (12-78) U/L Alkaline Phosphatase 38 L (46-116) IU/L Creatine Kinase 206 (26-308) U/L Creatine Kinase Index 1.4 (0.0-2.5) % CK-MB (CK-2) 2.90 (0.00-3.60) ng/mL Troponin I 0.000 (0.000-0.056) ng/mL NT-Pro-B Natriuret Pep 60 (0-125) pg/mL Total Protein 7.5 (6.4-8.2) g/dL Albumin 3.8 (3.4-5.0) g/dL TSH, Ultra Sensitive 1.987 (0.358-3.740) mIU/mL Meds: Medications Generic Name Dose Route Start Last Admin Trade Name Freq PRN Reason Stop Dose Admin Sodium Chloride 10 ml 10/25/18 15:36 10/25/18 15:49 Saline Flush FLUSH 10 ml ASDIRECTED PRN Administration Keep Vein Open Discontinued Medications Generic Name Dose Route Start Last Admin Trade Name Freq PRN Reason Stop Dose Admin Aspirin 324 mg 10/25/18 15:36 10/25/18 15:41 Aspirin CHEW 10/25/18 15:37 324 mg ONETIME ONE Administration Famotidine 40 mg 10/25/18 15:36 10/25/18 15:49 Pepcid IVPUSH 10/25/18 15:37 40 mg ONETIME ONE Administration Ticagrelor 180 mg 10/25/18 15:36 10/25/18 15:41 Brilinta PO 10/25/18 15:37 180 mg ONETIME ONE Administration - Radiology Interpretation Free Text/Narrative:: hedis manager shows occasional PACs with otherwise normal sinus rhythm in the 70s to 80s and no other ectopy or arrhythmia. Chest x-ray, portable, shows somewhat poor inspiratory film with moderate COPD changes and mild prominence of the proximal aortic arch with possible borderline pulmonary hypertension and/or mild centralized CHF. No pulmonary infiltrates, pneumothorax, etc. Departure - Departure Time of Disposition: 17:20 Disposition: Refer to Observation Reason for Transfer *Q: Other (Cardiology consultation as below.) Condition: Good Clinical Impression: Coronary artery disease, Hyperlipidemia, Hypertension, Chest pain, COPD ( chronic obstructive pulmonary disease), PAC (premature atrial contraction), Osteoarthritis Referrals: Letty Rush PA [Primary Care Provider] - Forms: ED Department Discharge Care Plan Goals: See plan. - Problem List & Annotations (1) Chest pain SNOMED Code(s): 18870658 Code(s): R07.9 - CHEST PAIN, UNSPECIFIED Status: Acute Priority: High Current Visit: No Onset Date: 09/15/17 Annotation/Comment:: Chest pain protocol initiated upon patient's arrival to the emergency room. Note questionable right ventricular ischemia by initial EKG. Initial telephone consultation with [facility] at 16:30 hours with EKGs 2 faxed to that facility for cardiology review. Subsequent telephone consultation with Dr. Malik, carbon capture power plant operator, who did not feel that the EKG showed any significant findings. She is in agreement with placement at the patient in observation status for rule out of HI and recommended Cardiolite stress test on an outpatient basis. Further cardiology consultation depending on his clinical course. Consider possible change to low-dose Xarelto therapy secondary to history of patient recurrent stent stenosis as above. Qualifiers: Chest pain type: chest pain due to myocardial ischemia Ischemic chest pain type: stable angina pectoris Qualified Code(s): I20.8 - Other forms of angina pectoris (2) Coronary artery disease SNOMED Code(s): 10342311 Code(s): I25.10 - ATHSCL HEART DISEASE OF [place] CORONARY ARTERY W/O ANG PCTRS Status: Chronic Priority: Medium Current Visit: Yes Annotation/ Comment:: Significant for previous coronary artery disease as above. Qualifiers: Coronary Disease-Associated Artery/Lesion type: [place] artery [place] vs. transplanted heart: [place] heart Associated angina: without angina Qualified Code(s): I25.10 - Atherosclerotic heart disease of [place] coronary artery without angina pectoris (3) PAC (premature atrial contraction) SNOMED Code(s): 081830302 Code(s): I49.1 - ATRIAL PREMATURE DEPOLARIZATION Status: Acute Priority: Medium Current Visit: No Onset Date: 09/15/17 Annotation/Comment:: Continue beta anastasiya therapy for now. Consider event monitor, etc. (4) Hypertension SNOMED Code(s): 01596138 Code(s): I10 - ESSENTIAL (PRIMARY) HYPERTENSION Status: Chronic Priority : Medium Current Visit: Yes Annotation/Comment:: Blood pressures relatively stable during emergency room care. Continue to observe closely. Qualifiers: Hypertension type: essential hypertension Qualified Code(s): I10 - Essential (primary) hypertension (5) Osteoarthritis SNOMED Code(s): 972205727 Code(s): M19.90 - UNSPECIFIED OSTEOARTHRITIS, UNSPECIFIED SITE Status: Chronic Priority: Medium Current Visit: Yes Annotation/Comment:: Otherwise stable by history with no recent gout attacks despite current elevated uric acid level. Patient did miss some of his medications last week secondary to running out of medications. Qualifiers: Osteoarthritis location: multiple joints Osteoarthritis type: primary Qualified Code(s): M15.0 - Primary generalized (osteo)arthritis (6) Hyperlipidemia SNOMED Code(s): 19872782 Code(s): E78.5 - HYPERLIPIDEMIA, UNSPECIFIED Status: Chronic Priority: Medium Current Visit: Yes Annotation/Comment:: Currently under therapy. Lipid panel and glycosylated hemoglobin to be conducted in the a.m. with known previous history of dyslipidemia. Weight loss in moderation advisable. Qualifiers: Hyperlipidemia type: mixed hyperlipidemia Qualified Code(s): E78.2 - Mixed hyperlipidemia (7) COPD (chronic obstructive pulmonary disease) SNOMED Code(s): 99916078 Code(s): J44.9 - CHRONIC OBSTRUCTIVE PULMONARY DISEASE, UNSPECIFIED Status : Chronic Priority: Medium Current Visit: No Annotation/Comment:: No recent fever, bronchitic type symptoms, or previous medical therapy required. Qualifiers: COPD type: emphysema Emphysema type: panlobular Qualified Code(s): J43.1 - Panlobular emphysema - Problem List Review Problem List Initiated/Reviewed/Updated: Yes - My Orders Last 24 Hours: My Active Orders 10/25/18 15:36 Cardiac Monitoring [RC] . DIRECTED EKG Documentation Completion [RC] ASDIRECTED Oxygen Therapy, ED [RC] PRN Peripheral IV Care [RC] . DIRECTED Pulse Oximetry [RC] CONTINUOUS Up With Assistance [RC] PFP Vital Signs [RC] PFP Chest 1V Frontal [CR] Stat Sodium Chloride 0.9% [Saline Flush] 10 ml FLUSH ASDIRECTED PRN Obtain Past Medical Record [OM.PC] Urgent Peripheral IV Insertion Adult [OM.PC] Stat Resuscitation Status Stat 10/25/18 15:42 EKG Documentation Completion [RC] ASDIRECTED 10/25/18 Breakfast Nothing per Oral Now Diet [DIET] - Assessment/Plan Admission H&P: Please use this note as an admission H&P Last 24 Hours: My Active Orders 10/25/18 15:36 Cardiac Monitoring [RC] . DIRECTED EKG Documentation Completion [RC] ASDIRECTED Oxygen Therapy, ED [RC] PRN Peripheral IV Care [RC] . DIRECTED Pulse Oximetry [RC] CONTINUOUS Up With Assistance [RC] PFP Vital Signs [RC] PFP Chest 1V Frontal [CR] Stat Sodium Chloride 0.9% [Saline Flush] 10 ml FLUSH ASDIRECTED PRN Obtain Past Medical Record [OM.PC] Urgent Peripheral IV Insertion Adult [OM.PC] Stat Resuscitation Status Stat 10/25/18 15:42 EKG Documentation Completion [RC] ASDIRECTED 10/25/18 Breakfast Nothing per Oral Now Diet [DIET] Assessment:: As above Plan: As above. Extensive precautions were given to the patient, who is in agreement with the treatment plan. The patient's condition is stable enough for observation status and general supervision.
[2018-10-25] MEDS ORDERED: Ticagrelor 90 MG Tab PO ONE (15:36)
[2018-10-25] MEDS ORDERED: Aspirin 81 MG Tab.Chew CHEW ONE (15:36)
[2018-10-25] MEDS ORDERED: Famotidine 20 MG/2 ML SDV IVPUSH ONE (15:36)
[2018-10-25] MEDS ORDERED: Sodium Chloride 0.9% 10 ML Syringe FLUSH PRN ×2 (15:36→17:48)
[2018-10-25 16:20] LABS: CHLORIDE,CL 103 mmol/L (98-107); SODIUM,NA 136 mmol/L (136-145)
[2018-10-25] MEDS ORDERED: Nitroglycerin 0.4 MG Tab.SL SL PRN (17:47)
[2018-10-25] MEDS ORDERED: Temazepam 15 MG Cap PO PRN (17:48)
[2018-10-25] MEDS ORDERED: Acetaminophen 325 MG Tab PO PRN (17:48)
[2018-10-25] MEDS ORDERED: Enoxaparin 100 MG/1 ML Syringe SUBCUT SCH (18:00)
[2018-10-25] MEDS: Cephalexin 250 MG Cap PO SCH (18:48)
[2018-10-26 07:41] LABS: HEMOGLOBIN A1C 5.9 % (4.3-5.7)
[2018-10-26] MEDS ORDERED: Acetaminophen 325 MG Tab PO SCH (08:00)
[2018-10-26] MEDS ORDERED: atorvaSTATin 40 MG Tab PO SCH (08:00)
[2018-10-26] MEDS ORDERED: Clopidogrel 75 MG Tab PO SCH (08:00)
[2018-10-26] MEDS ORDERED: Metoprolol Succinate 25 MG Tab.ER PO SCH (08:00)
[2018-10-26] MEDS ORDERED: Lisinopril 5 MG Tab PO SCH (08:00)
[2018-10-26] MEDS ORDERED: Colchicine 0.6 MG Tab PO SCH (08:00)
[2018-10-26] MEDS ORDERED: Ezetimibe 10 MG Tab PO SCH (08:00)
[2018-10-26] MEDS: Cephalexin 250 MG Cap PO SCH (08:09)
[2018-10-26 08:36] LABS: CHLORIDE,CL 104 mmol/L (98-107); SODIUM,NA 139 mmol/L (136-145)
--- NOTE | 2018-10-26 09:28 | PCM.DCSUM1 ---
Discharge Summary - Hospital Course HPI Initial Comments: See emergency room note/admission H&P Brief History: See emergency room note/admission H&P Diagnosis: Stroke: No Modified Paron Scale: No Symptoms at All Modified Paron Scale Score: 0 - Discharge Data Discharge Date: 10/26/18 Discharge Disposition: Home, Self-Care 01 Condition: Good - Discharge Diagnosis/Problem(s) (1) Chest pain SNOMED Code(s): 71361341 ICD Code: R07.9 - CHEST PAIN, UNSPECIFIED Status: Acute Priority: High Current Visit: Yes Onset Date: 09/15/17 Problem Details: Negative workup for acute FL during this hospitalization. The patient is an extremely poor historian with retrosternal nonspecific retrosternal chest discomfort during this hospitalization, however patient denies any significant pressure or pain at discharge. Various therapeutic options were discussed with the patient, who is requesting outpatient Cardiolite stress test with his regular provider, Rosemary Yeboah MD at [facility] in [place]. Secondary to his recent carpal tunnel release will likely not be able to use the treadmill. Recommend dobutamine Cardiolite stress test. The patient did not wish to be transferred to [place] today for further cardiology consultation/workup. Work excuse and activity restrictions discussed. Chest pain protocol initiated upon patient's arrival to the emergency room. Note questionable right ventricular ischemia by initial EKG. Initial telephone consultation with [facility] in [place] at 16 :30 hours with EKGs 2 faxed to that facility for cardiology review. Subsequent telephone consultation with Dr. Malik, customer support manager, who did not feel that the EKG showed any significant findings. She is in agreement with placement at the patient in observation status for rule out of FL and recommended Cardiolite stress test on an outpatient basis. Further cardiology consultation depending on his clinical course. Consider possible change of his Plavix to Brilinta versus to low-dose Xarelto therapy secondary to history of patient recurrent stent stenosis/thrombosis as per emergency room note. Note his co-pay for Xarelto is somewhat high at $102.33/month. Discuss further medication changes with his regular provider at follow-up. Note that his blood pressure was intermittently elevated during this hospitalization with additional occasional PACs. Consider increase of his beta anastasiya therapy. Note borderline elevated BNP with no true clinical evidence of CHF. Qualifiers: Chest pain type: chest pain due to myocardial ischemia Ischemic chest pain type: stable angina pectoris Qualified Code(s): I20.8 - Other forms of angina pectoris (2) Coronary artery disease SNOMED Code(s): 28405728 ICD Code: I25.10 - ATHSCL HEART DISEASE OF [place] CORONARY ARTERY W/O ANG PCTRS Status: Chronic Priority: Medium Current Visit: Yes Problem Details: Significant for previous coronary artery disease as above and as per emergency room note. Qualifiers: Coronary Disease-Associated Artery/Lesion type: [place] artery [place] vs. transplanted heart: [place] heart Associated angina: without angina Qualified Code(s): I25.10 - Atherosclerotic heart disease of [place] coronary artery without angina pectoris (3) PAC (premature atrial contraction) SNOMED Code(s): 822021352 ICD Code: I49.1 - ATRIAL PREMATURE DEPOLARIZATION Status: Acute Priority : Medium Current Visit: Yes Onset Date: 09/15/17 Problem Details: Continue current beta anastasiya therapy for now, however discuss possible medication changes at follow-up. Consider event monitor, etc. (4) Hypertension SNOMED Code(s): 16975648 ICD Code: I10 - ESSENTIAL (PRIMARY) HYPERTENSION Status: Chronic Priority : Medium Current Visit: Yes Problem Details: Blood pressures relatively stable during emergency room care, although occasionally elevated during this hospitalization. Consider medication changes as above. Continue to observe closely by his regular providers. Qualifiers: Hypertension type: essential hypertension Qualified Code(s): I10 - Essential (primary) hypertension (5) Osteoarthritis SNOMED Code(s): 222737690 ICD Code: M19.90 - UNSPECIFIED OSTEOARTHRITIS, UNSPECIFIED SITE Status: Chronic Priority: Medium Current Visit: Yes Problem Details: Otherwise stable by history with no recent gout attacks despite current elevated uric acid level. Patient did miss some of his medications last week secondary to running out of medications. Qualifiers: Osteoarthritis location: multiple joints Osteoarthritis type: primary Qualified Code(s): M15.0 - Primary generalized (osteo)arthritis (6) Hyperlipidemia SNOMED Code(s): 74096764 ICD Code: E78.5 - HYPERLIPIDEMIA, UNSPECIFIED Status: Chronic Priority: Medium Current Visit: Yes Problem Details: Currently under therapy with lipid panel this morning showing persistent significant dyslipidemia. Glycosylated hemoglobin was also mildly elevated at 5.9% with no direct evidence of true diabetes. Dietary information provided at discharge. Close Follow-up by his regular provider. Weight loss in moderation advisable. Qualifiers: Hyperlipidemia type: mixed hyperlipidemia Qualified Code(s): E78.2 - Mixed hyperlipidemia (7) COPD (chronic obstructive pulmonary disease) SNOMED Code(s): 12916261 ICD Code: J44.9 - CHRONIC OBSTRUCTIVE PULMONARY DISEASE, UNSPECIFIED Status : Chronic Priority: Medium Current Visit: Yes Problem Details: No recent fever, bronchitic type symptoms, or previous medical therapy required. Qualifiers: COPD type: emphysema Emphysema type: panlobular Qualified Code(s): J43.1 - Panlobular emphysema (8) Hyperglycemia SNOMED Code(s): 43601862 ICD Code: R73.9 - HYPERGLYCEMIA, UNSPECIFIED Status: Acute Priority: Medium Current Visit: Yes Onset Date: ~10/26/18 Problem Details: As above. Additional 1500-calorie ADA diet with repeat glycosylated hemoglobin and lipid panel recommended in 3 months. (9) Cellulitis SNOMED Code(s): 189654823 ICD Code: L03.90 - CELLULITIS, UNSPECIFIED Status: Acute Priority: High Current Visit: Yes Onset Date: 10/24/18 Problem Details: Note postoperative cellulitis from recent right-sided carpal tunnel release with continuation of Keflex therapy during this hospitalization. Qualifiers: Site of cellulitis: extremity Site of cellulitis of extremity: upper extremity Laterality: right Qualified Code(s): L03.113 - Cellulitis of right upper limb - Patient Summary/Data Operative Procedure(s) Performed: None Complications: None Consults: Cardiology consultation during emergency room care Labs Pending at D/C: None Recommended Follow-up Testing/Procedures: As per discharge instructions Planned Operative Procedure(s) after DC: As per discharge instructions Hospital Course: The patient was placed in observation status on telemetry with negative workup for acute FL as above. Note emergency room consultation with customer support manager at [facility] as per emergency room note. The patient was essentially symptom-free at time of discharge. Activity restrictions, etc. discussed with close follow-up by regular provider as above. He was given cardiac dose of Lovenox at admission as a precaution. - Patient Instructions Diet: Heart Healthy Diet Diet, Other: 1800-calorie ADA diverticulosis Activity: No Strenuous Activities (25% maximum exercise restriction until released by providers) Driving: May Drive Today Showering/Bathing: May Shower Notify Provider of: Increased Pain, Nausea and/or Vomiting Other/Special Instructions: 1. Followup with your regular provider in 10-14 days as directed for reevaluation and discussion of Cardiolite stress test results. Bring these discharge instructions with you to that visit. 2. Dobutamine Cardiolite stress test with Rosemary Yeboah MD at [facility] in [place] on 11/02/18 in this facility with hospital call you later with specific instructions and times. 3. Work excuse- See Form. 4. Discuss possible changes of your medical therapy as discussed including possible change of Plavix to either Brilinta or Xopenex and possible increase of your current Toprol XL. 5. Immediately after this visit verify that your cellular telephone 's voicemail has been activated and is empty. Also verify that your home telephone's answering machine is operating properly and has space to receive messages. Note that it is sometimes necessary for us to be able to contact you at a later date to discuss your medical care. 6. Please remember that we are ALWAYS here for you and want to answer any questions you may have. Feel free to call the hospital any time and we call you back JOHNSON. - Discharge Plan *PRESCRIPTION DRUG MONITORING PROGRAM REVIEWED*: Not Applicable *COPY OF PRESCRIPTION DRUG MONITORING REPORT IN PATIENT IVAN: Not Applicable Home Medications: Home Meds Acetaminophen [Tylenol] 650 mg PO DAILY 10/25/18 [History] Clopidogrel [Plavix] 1 tab PO DAILY 10/25/18 [History] Colchicine 0.6 mg PO DAILY 10/25/18 [History] Ezetimibe [Zetia] 10 mg PO DAILY 10/25/18 [History] Lisinopril [Prinivil] 2.5 mg PO DAILY 10/25/18 [History] Metoprolol Succinate [Toprol XL] 0.5 tab PO DAILY 10/25/18 [History] Nitroglycerin [Nitrostat] 1 tab SL Q5M PRN 10/25/18 [History] atorvaSTATin Calcium [Lipitor] 1 tab PO DAILY 10/25/18 [History] cephALEXin [Cephalexin] 500 mg PO BID 10/25/18 [History] traMADol [Ultram] 1 - 2 tab PO Q4HR PRN 10/25/18 [History] Acetaminophen [Tylenol] 650 mg PO Q4H PRN tablet 10/26/18 [Rx] Oxygen Therapy Mode: Room Air Patient Handouts: Fat and Cholesterol Restricted Eating Plan, Hyperglycemia, [id number], Angina Pectoris, [id number], Diabetes Mellitus and Nutrition, Adult Forms: Return to Work/Inpatient LLN, ED Department Discharge Referrals: Letty Rush PA [Primary Care Provider] - - Discharge Summary/Plan Comment DC Time >30 min.: Yes (Coordination of care ) Discharge Summary/Plan Comment: As above. Extensive precautions were given to the patient, who is in agreement with the treatment plan. See Patient Instructions for further treatment and plan. - General Info Date of Service: 10/26/18 Admission Dx/Problem (Free Text: 1. Chest pain 2. Coronary artery disease Functional Status: Reports: Pain Controlled, Tolerating Diet, Ambulating, Urinating. Denies: New Symptoms, Incentive Spirometry Numeric/FACES Score: 0 - Review of Systems General: Reports: No Symptoms. Denies: Fever, Weakness, Fatigue, Malaise, Chills, Night Sweats, Appetite (Appetite good) HEENT: Reports: Glasses. Denies: Ear Pain, Eye Pain, Headaches, Post Nasal Drip , Sinus Congestion, Sore Throat, Rhinitis, Visual Changes Pulmonary: Reports: No Symptoms. Denies: Shortness of Breath, Pleuritic Chest Pain, Cough, Sputum, Hemoptysis, Wheezing Cardiovascular: Reports: No Symptoms. Denies: Chest Pain, Palpitations, Dyspnea on Exertion, Orthopnea, PND, Edema, Lightheadedness Gastrointestinal: Reports: No Symptoms. Denies: Abdominal Pain, Constipation, Decreased Appetite, Diarrhea, Difficulty Swallowing, Flatus, Hematochezia, Melena, Nausea, Vomiting Genitourinary: Reports: No Symptoms. Denies: Dysuria, Frequency, Burning, Pain , Hematuria, Retention, Flank Pain Musculoskeletal: Reports: No Symptoms. Denies: Neck Pain, Shoulder Pain, Arm Pain, Back Pain, Leg Pain Skin: Reports: No Symptoms. Denies: Diaphoresis, Bruising Neurological: Reports: No Symptoms. Denies: Confusion, Dizziness, Headache, Numbness, Paresthesia, Pre-Existing Deficit, Tingling, Difficulty Walking, Weakness Psychiatric: Reports: No Symptoms. Denies: Confusion, Agitation, Cravings, Hallucinations - Patient Data Vitals - Most Recent: Last Vital Signs Temp 36.4 C 10/26/18 08:00 Pulse 78 10/26/18 08:10 Resp 14 10/26/18 08:00 BP 149/82 H 10/26/18 08:11 Pulse Ox 98 10/26/18 08:00 Vital Signs - 24 hr 10/25/18 10/25/18 10/25/18 15:29 15:36 15:53 Temperature [ 36.5 C Oral] Temperature [ Temporal] Pulse, Peripheral Pulse, 74 76 Peripheral [ Pulse Oximetry] Respiratory 20 13 Rate Blood Pressure Blood Pressure 154/84 H 125/57 L [Left Arm] O2 Sat by Pulse 97 Oximetry O2 Sat by Pulse 97 Oximetry [Room Air] 10/25/18 10/25/18 10/25/18 16:07 16:23 16:53 Temperature [ Oral] Temperature [ Temporal] Pulse, Peripheral Pulse, 77 75 Peripheral [ Pulse Oximetry] Respiratory 16 Rate Blood Pressure Blood Pressure 143/84 H 148/88 H 141/108 H [Left Arm] O2 Sat by Pulse 97 96 Oximetry O2 Sat by Pulse Oximetry [Room Air] 10/25/18 10/25/18 10/25/18 17:03 17:09 17:48 Temperature [ 36.4 C Oral] Temperature [ Temporal] Pulse, Peripheral Pulse, 85 74 65 Peripheral [ Pulse Oximetry] Respiratory 13 14 18 Rate Blood Pressure Blood Pressure 146/80 H 137/81 126/74 [Left Arm] O2 Sat by Pulse 97 97 96 Oximetry O2 Sat by Pulse Oximetry [Room Air] 10/25/18 10/25/18 10/25/18 19:47 21:00 23:45 Temperature [ 36.4 C 36.6 C Oral] Temperature [ 36.6 C Temporal] Pulse, Peripheral Pulse, 65 69 70 Peripheral [ Pulse Oximetry] Respiratory 18 18 16 Rate Blood Pressure Blood Pressure 126/74 160/91 H 153/89 H [Left Arm] O2 Sat by Pulse 100 99 99 Oximetry O2 Sat by Pulse Oximetry [Room Air] 10/26/18 10/26/18 10/26/18 06:15 08:00 08:10 Temperature [ Oral] Temperature [ 37.2 C 36.4 C Temporal] Pulse, 78 Peripheral Pulse, 73 78 Peripheral [ Pulse Oximetry] Respiratory 16 14 Rate Blood Pressure 149/82 H Blood Pressure 126/86 149/82 H [Left Arm] O2 Sat by Pulse 98 98 Oximetry O2 Sat by Pulse Oximetry [Room Air] 10/26/18 08:11 Temperature [ Oral] Temperature [ Temporal] Pulse, Peripheral Pulse, Peripheral [ Pulse Oximetry] Respiratory Rate Blood Pressure 149/82 H Blood Pressure [Left Arm] O2 Sat by Pulse Oximetry O2 Sat by Pulse Oximetry [Room Air] Weight - Most Recent: 99.11 kg I&O - Last 24 hours: Intake & Output 10/25/18 10/26/18 10/26/18 22:59 06:59 14:59 Intake Total 200 Output Total 1000 Balance 200 -1000 Imaging Impressions - Last 24 hrs: rat farmer showed overall normal sinus rhythm in the 70s to 80s with occasional PACs and pauses with no other significant arrhythmia, tachycardia, etc. Chest x-ray, portable, on 10/25/18 shows somewhat poor inspiratory film with moderate COPD changes and mild prominence of the proximal aortic arch with possible borderline pulmonary hypertension and/or mild centralized CHF. No pulmonary infiltrates, pneumothorax, etc. Lab Results - Last 24 hrs: Laboratory Results - last 24 hr 10/25/18 10/25/18 10/25/18 Range/Units 08:55 15:48 15:48 WBC 9.1 (4.0-10.2) K/uL RBC 4.46 (4.33-5.41) M/uL Hgb 14.0 (13.1-16.8) g/dL Hct 40.5 (39.0-49.0) % MCV 90.8 (84.0-98.0) fL MCH 31.4 (28.2-33.3) pg MCHC 34.6 (31.7-36.0) g/dL RDW 14.3 H (11.2-14.1) % Plt Count 236 (150-350) K/uL Neut % (Auto) 60.9 (45.0-80.0) % Lymph % (Auto) 25.7 (10.0-50.0) % [place] % (Auto) 10.0 (2.0-14.0) % Eos % (Auto) 3.3 (0.0-5.0) % Baso % (Auto) 0.1 (0.0-2.0) % Neut # (Auto) 5.57 (1.40-7.00) K/uL Lymph # (Auto) 2.35 (0.50-3.50) K/uL [place] # (Auto) 0.91 (0.00-1.00) K/uL Eos # (Auto) 0.30 (0.00-0.50) K/uL Baso # (Auto) 0.01 (0.00-0.20) K/uL PT 10.5 (9.5-12.0) SEC INR 1.0 APTT 27.6 (21.0-31.3) SEC D-Dimer, Quantitative (0-400) ng/mL Sodium (136-145) mmol/L Potassium (3.5-5.1) mmol/L Chloride (98-107) mmol/L Carbon Dioxide (21.0-32.0) mmol/L BUN (7-18) mg/dL Creatinine (0.51-1.17) mg/dL Est Cr Clr Drug Dosing mL/min Estimated GFR (MDRD) mL/min Glucose (74-106) mg/dL Hemoglobin A1c (4.3-5.7) % Lactic Acid (0.4-2.0) mmol/L Uric Acid (2.6-7.2) mg/dL Calcium (8.5-10.1) mg/dL Magnesium (1.8-2.4) mg/dL Total Bilirubin (0.2-1.0) mg/dL AST (15-37) U/L ALT (12-78) U/L Alkaline Phosphatase (46-116) IU/L Creatine Kinase 173 (26-308) U/L Creatine Kinase Index 1.3 (0.0-2.5) % CK-MB (CK-2) 2.30 (0.00-3.60) ng/mL Troponin I 0.000 (0.000-0.056) ng/mL NT-Pro-B Natriuret Pep (0-125) pg/mL Total Protein (6.4-8.2) g/dL Albumin (3.4-5.0) g/dL Triglycerides (30-150) mg/dL Cholesterol (100-200) mg/dL LDL Cholesterol, Calc (0-100) mg/dL HDL Cholesterol (40-60) mg/dL TSH, Ultra Sensitive (0.358-3.740) mIU/mL 10/25/18 10/25/18 10/25/18 Range/Units 15:48 15:48 15:48 WBC (4.0-10.2) K/uL RBC (4.33-5.41) M/uL Hgb (13.1-16.8) g/dL Hct (39.0-49.0) % MCV (84.0-98.0) fL MCH (28.2-33.3) pg MCHC (31.7-36.0) g/dL RDW (11.2-14.1) % Plt Count (150-350) K/uL Neut % (Auto) (45.0-80.0) % Lymph % (Auto) (10.0-50.0) % [place] % (Auto) (2.0-14.0) % Eos % (Auto) (0.0-5.0) % Baso % (Auto) (0.0-2.0) % Neut # (Auto) (1.40-7.00) K/uL Lymph # (Auto) (0.50-3.50) K/uL [place] # (Auto) (0.00-1.00) K/uL Eos # (Auto) (0.00-0.50) K/uL Baso # (Auto) (0.00-0.20) K/uL PT (9.5-12.0) SEC INR APTT (21.0-31.3) SEC D-Dimer, Quantitative 181 (0-400) ng/mL Sodium 136 (136-145) mmol/L Potassium 4.3 (3.5-5.1) mmol/L Chloride 103 (98-107) mmol/L Carbon Dioxide 26.0 (21.0-32.0) mmol/L BUN 15 (7-18) mg/dL Creatinine 1.10 (0.51-1.17) mg/dL Est Cr Clr Drug Dosing 65.10 mL/min Estimated GFR (MDRD) > 60 mL/min Glucose 160 H (74-106) mg/dL Hemoglobin A1c (4.3-5.7) % Lactic Acid 1.4 (0.4-2.0) mmol/L Uric Acid 8.8 H (2.6-7.2) mg/dL Calcium 9.0 (8.5-10.1) mg/dL Magnesium 2.1 (1.8-2.4) mg/dL Total Bilirubin 0.5 (0.2-1.0) mg/dL AST 22 (15-37) U/L ALT 39 (12-78) U/L Alkaline Phosphatase 38 L (46-116) IU/L Creatine Kinase 206 (26-308) U/L Creatine Kinase Index 1.4 (0.0-2.5) % CK-MB (CK-2) 2.90 (0.00-3.60) ng/mL Troponin I 0.000 (0.000-0.056) ng/mL NT-Pro-B Natriuret Pep 60 (0-125) pg/mL Total Protein 7.5 (6.4-8.2) g/dL Albumin 3.8 (3.4-5.0) g/dL Triglycerides (30-150) mg/dL Cholesterol (100-200) mg/dL LDL Cholesterol, Calc (0-100) mg/dL HDL Cholesterol (40-60) mg/dL TSH, Ultra Sensitive 1.987 (0.358-3.740) mIU/mL 10/26/18 10/26/18 10/26/18 Range/Units 07:12 07:12 07:12 WBC 9.9 (4.0-10.2) K/uL RBC 4.66 (4.33-5.41) M/uL Hgb 14.6 (13.1-16.8) g/dL Hct 42.3 (39.0-49.0) % MCV 90.8 (84.0-98.0) fL MCH 31.3 (28.2-33.3) pg MCHC 34.5 (31.7-36.0) g/dL RDW 14.4 H (11.2-14.1) % Plt Count 232 (150-350) K/uL Neut % (Auto) 64.7 (45.0-80.0) % Lymph % (Auto) 21.7 (10.0-50.0) % [place] % (Auto) 9.7 (2.0-14.0) % Eos % (Auto) 3.7 (0.0-5.0) % Baso % (Auto) 0.2 (0.0-2.0) % Neut # (Auto) 6.38 (1.40-7.00) K/uL Lymph # (Auto) 2.14 (0.50-3.50) K/uL [place] # (Auto) 0.96 (0.00-1.00) K/uL Eos # (Auto) 0.36 (0.00-0.50) K/uL Baso # (Auto) 0.02 (0.00-0.20) K/uL PT (9.5-12.0) SEC INR APTT (21.0-31.3) SEC D-Dimer, Quantitative (0-400) ng/mL Sodium 139 (136-145) mmol/L Potassium 4.7 (3.5-5.1) mmol/L Chloride 104 (98-107) mmol/L Carbon Dioxide 27.4 (21.0-32.0) mmol/L BUN 15 (7-18) mg/dL Creatinine 1.14 (0.51-1.17) mg/dL Est Cr Clr Drug Dosing 62.81 mL/min Estimated GFR (MDRD) > 60 mL/min Glucose 112 H (74-106) mg/dL Hemoglobin A1c 5.9 H (4.3-5.7) % Lactic Acid (0.4-2.0) mmol/L Uric Acid (2.6-7.2) mg/dL Calcium 9.3 (8.5-10.1) mg/dL Magnesium (1.8-2.4) mg/dL Total Bilirubin 0.7 (0.2-1.0) mg/dL AST 24 (15-37) U/L ALT 40 (12-78) U/L Alkaline Phosphatase 31 L (46-116) IU/L Creatine Kinase 147 (26-308) U/L Creatine Kinase Index 1.4 (0.0-2.5) % CK-MB (CK-2) 2.00 (0.00-3.60) ng/mL Troponin I 0.000 (0.000-0.056) ng/mL NT-Pro-B Natriuret Pep 130 H (0-125) pg/mL Total Protein 7.3 (6.4-8.2) g/dL Albumin 3.7 (3.4-5.0) g/dL Triglycerides 383 H (30-150) mg/dL Cholesterol 134 (100-200) mg/dL LDL Cholesterol, Calc 32 (0-100) mg/dL HDL Cholesterol 25 L (40-60) mg/dL TSH, Ultra Sensitive (0.358-3.740) mIU/mL Laboratory Tests 10/25/18 10/25/18 10/25/18 Range/Units 08:55 15:48 15:48 WBC 9.1 (4.0-10.2) K/uL RBC 4.46 (4.33-5.41) M/uL Hgb 14.0 (13.1-16.8) g/dL Hct 40.5 (39.0-49.0) % MCV 90.8 (84.0-98.0) fL MCH 31.4 (28.2-33.3) pg MCHC 34.6 (31.7-36.0) g/dL RDW 14.3 H (11.2-14.1) % Plt Count 236 (150-350) K/uL Neut % (Auto) 60.9 (45.0-80.0) % Lymph % (Auto) 25.7 (10.0-50.0) % [place] % (Auto) 10.0 (2.0-14.0) % Eos % (Auto) 3.3 (0.0-5.0) % Baso % (Auto) 0.1 (0.0-2.0) % Neut # (Auto) 5.57 (1.40-7.00) K/uL Lymph # (Auto) 2.35 (0.50-3.50) K/uL [place] # (Auto) 0.91 (0.00-1.00) K/uL Eos # (Auto) 0.30 (0.00-0.50) K/uL Baso # (Auto) 0.01 (0.00-0.20) K/uL PT 10.5 (9.5-12.0) SEC INR 1.0 APTT 27.6 (21.0-31.3) SEC D-Dimer, Quantitative (0-400) ng/mL Sodium (136-145) mmol/L Potassium (3.5-5.1) mmol/L Chloride (98-107) mmol/L Carbon Dioxide (21.0-32.0) mmol/L BUN (7-18) mg/dL Creatinine (0.51-1.17) mg/dL Est Cr Clr Drug Dosing mL/min Estimated GFR (MDRD) mL/min Glucose (74-106) mg/dL Hemoglobin A1c (4.3-5.7) % Lactic Acid (0.4-2.0) mmol/L Uric Acid (2.6-7.2) mg/dL Calcium (8.5-10.1) mg/dL Magnesium (1.8-2.4) mg/dL Total Bilirubin (0.2-1.0) mg/dL AST (15-37) U/L ALT (12-78) U/L Alkaline Phosphatase (46-116) IU/L Creatine Kinase 173 (26-308) U/L Creatine Kinase Index 1.3 (0.0-2.5) % CK-MB (CK-2) 2.30 (0.00-3.60) ng/mL Troponin I 0.000 (0.000-0.056) ng/mL NT-Pro-B Natriuret Pep (0-125) pg/mL Total Protein (6.4-8.2) g/dL Albumin (3.4-5.0) g/dL Triglycerides (30-150) mg/dL Cholesterol (100-200) mg/dL LDL Cholesterol, Calc (0-100) mg/dL HDL Cholesterol (40-60) mg/dL TSH, Ultra Sensitive (0.358-3.740) mIU/mL 10/25/18 10/25/18 10/25/18 Range/Units 15:48 15:48 15:48 WBC (4.0-10.2) K/uL RBC (4.33-5.41) M/uL Hgb (13.1-16.8) g/dL Hct (39.0-49.0) % MCV (84.0-98.0) fL MCH (28.2-33.3) pg MCHC (31.7-36.0) g/dL RDW (11.2-14.1) % Plt Count (150-350) K/uL Neut % (Auto) (45.0-80.0) % Lymph % (Auto) (10.0-50.0) % [place] % (Auto) (2.0-14.0) % Eos % (Auto) (0.0-5.0) % Baso % (Auto) (0.0-2.0) % Neut # (Auto) (1.40-7.00) K/uL Lymph # (Auto) (0.50-3.50) K/uL [place] # (Auto) (0.00-1.00) K/uL Eos # (Auto) (0.00-0.50) K/uL Baso # (Auto) (0.00-0.20) K/uL PT (9.5-12.0) SEC INR APTT (21.0-31.3) SEC D-Dimer, Quantitative 181 (0-400) ng/mL Sodium 136 (136-145) mmol/L Potassium 4.3 (3.5-5.1) mmol/L Chloride 103 (98-107) mmol/L Carbon Dioxide 26.0 (21.0-32.0) mmol/L BUN 15 (7-18) mg/dL Creatinine 1.10 (0.51-1.17) mg/dL Est Cr Clr Drug Dosing 65.10 mL/min Estimated GFR (MDRD) > 60 mL/min Glucose 160 H (74-106) mg/dL Hemoglobin A1c (4.3-5.7) % Lactic Acid 1.4 (0.4-2.0) mmol/L Uric Acid 8.8 H (2.6-7.2) mg/dL Calcium 9.0 (8.5-10.1) mg/dL Magnesium 2.1 (1.8-2.4) mg/dL Total Bilirubin 0.5 (0.2-1.0) mg/dL AST 22 (15-37) U/L ALT 39 (12-78) U/L Alkaline Phosphatase 38 L (46-116) IU/L Creatine Kinase 206 (26-308) U/L Creatine Kinase Index 1.4 (0.0-2.5) % CK-MB (CK-2) 2.90 (0.00-3.60) ng/mL Troponin I 0.000 (0.000-0.056) ng/mL NT-Pro-B Natriuret Pep 60 (0-125) pg/mL Total Protein 7.5 (6.4-8.2) g/dL Albumin 3.8 (3.4-5.0) g/dL Triglycerides (30-150) mg/dL Cholesterol (100-200) mg/dL LDL Cholesterol, Calc (0-100) mg/dL HDL Cholesterol (40-60) mg/dL TSH, Ultra Sensitive 1.987 (0.358-3.740) mIU/mL 10/26/18 10/26/18 10/26/18 Range/Units 07:12 07:12 07:12 WBC 9.9 (4.0-10.2) K/uL RBC 4.66 (4.33-5.41) M/uL Hgb 14.6 (13.1-16.8) g/dL Hct 42.3 (39.0-49.0) % MCV 90.8 (84.0-98.0) fL MCH 31.3 (28.2-33.3) pg MCHC 34.5 (31.7-36.0) g/dL RDW 14.4 H (11.2-14.1) % Plt Count 232 (150-350) K/uL Neut % (Auto) 64.7 (45.0-80.0) % Lymph % (Auto) 21.7 (10.0-50.0) % [place] % (Auto) 9.7 (2.0-14.0) % Eos % (Auto) 3.7 (0.0-5.0) % Baso % (Auto) 0.2 (0.0-2.0) % Neut # (Auto) 6.38 (1.40-7.00) K/uL Lymph # (Auto) 2.14 (0.50-3.50) K/uL [place] # (Auto) 0.96 (0.00-1.00) K/uL Eos # (Auto) 0.36 (0.00-0.50) K/uL Baso # (Auto) 0.02 (0.00-0.20) K/uL PT (9.5-12.0) SEC INR APTT (21.0-31.3) SEC D-Dimer, Quantitative (0-400) ng/mL Sodium 139 (136-145) mmol/L Potassium 4.7 (3.5-5.1) mmol/L Chloride 104 (98-107) mmol/L Carbon Dioxide 27.4 (21.0-32.0) mmol/L BUN 15 (7-18) mg/dL Creatinine 1.14 (0.51-1.17) mg/dL Est Cr Clr Drug Dosing 62.81 mL/min Estimated GFR (MDRD) > 60 mL/min Glucose 112 H (74-106) mg/dL Hemoglobin A1c 5.9 H (4.3-5.7) % Lactic Acid (0.4-2.0) mmol/L Uric Acid (2.6-7.2) mg/dL Calcium 9.3 (8.5-10.1) mg/dL Magnesium (1.8-2.4) mg/dL Total Bilirubin 0.7 (0.2-1.0) mg/dL AST 24 (15-37) U/L ALT 40 (12-78) U/L Alkaline Phosphatase 31 L (46-116) IU/L Creatine Kinase 147 (26-308) U/L Creatine Kinase Index 1.4 (0.0-2.5) % CK-MB (CK-2) 2.00 (0.00-3.60) ng/mL Troponin I 0.000 (0.000-0.056) ng/mL NT-Pro-B Natriuret Pep 130 H (0-125) pg/mL Total Protein 7.3 (6.4-8.2) g/dL Albumin 3.7 (3.4-5.0) g/dL Triglycerides 383 H (30-150) mg/dL Cholesterol 134 (100-200) mg/dL LDL Cholesterol, Calc 32 (0-100) mg/dL HDL Cholesterol 25 L (40-60) mg/dL TSH, Ultra Sensitive (0.358-3.740) mIU/mL CODY Results - Last 24 hrs: None Med Orders - Current: Current Medications Acetaminophen (Tylenol) 650 mg PO DAILY [facility] Last Admin: 10/26/18 08:10 Dose: 650 mg Acetaminophen (Tylenol) 650 mg PO Q4H PRN PRN Reason: Pain Atorvastatin Calcium (Lipitor) 40 mg PO DAILY [facility] Last Admin: 10/26/18 08:09 Dose: 40 mg Cephalexin (Keflex) 500 mg PO BID [facility] Last Admin: 10/26/18 08:09 Dose: 500 mg Clopidogrel Bisulfate (Plavix) 75 mg PO DAILY [facility] Last Admin: 10/26/18 08:09 Dose: 75 mg Colchicine (Colcrys) 0.6 mg PO DAILY [facility] Last Admin: 10/26/18 08:09 Dose: 0.6 mg Ezetimibe (Zetia) 10 mg PO DAILY [facility] Last Admin: 10/26/18 08:09 Dose: 10 mg Enoxaparin Sodium (Lovenox) 100 mg SUBCUT Q24H [facility] Last Admin: 10/25/18 18:48 Dose: 100 mg Lisinopril (Prinivil) 2.5 mg PO DAILY [facility] Last Admin: 10/26/18 08:11 Dose: 2.5 mg Metoprolol Succinate (Toprol Xl) 12.5 mg PO DAILY [facility] Last Admin: 10/26/18 08:10 Dose: 12.5 mg Nitroglycerin (Nitrostat) 0.4 mg SL Q5M PRN PRN Reason: Chest Pain Sodium Chloride (Saline Flush) 10 ml FLUSH ASDIRECTED PRN PRN Reason: Keep Vein Open Last Admin: 10/25/18 15:49 Dose: 10 ml Sodium Chloride (Saline Flush) 10 ml FLUSH Q12HR PRN PRN Reason: Keep Vein Open Last Admin: 10/26/18 08:12 Dose: 10 ml Temazepam (Restoril) 15 mg PO BEDTIME PRN PRN Reason: Insomnia Discontinued Medications Aspirin (Aspirin) 324 mg CHEW ONETIME ONE Stop: 10/25/18 15:37 Last Admin: 10/25/18 15:41 Dose: 324 mg Famotidine (Pepcid) 40 mg IVPUSH ONETIME ONE Stop: 10/25/18 15:37 Last Admin: 10/25/18 15:49 Dose: 40 mg Ticagrelor (Brilinta) 180 mg PO ONETIME ONE Stop: 10/25/18 15:37 Last Admin: 10/25/18 15:41 Dose: 180 mg - Exam Quality Assessment: Reports: DVT Prophylaxis (Lovenox). Denies: Supplemental Oxygen, Central Line/PICC, Urine Catheter, Skin Breakdown, Restraints General: Reports: Alert, Oriented, Cooperative, No Acute Distress HEENT: Reports: Pupils Equal, Pupils Reactive, EOMI, Mucous Membr. Moist/[place], Other (Patient wearing glasses) Neck: Reports: Supple, Trachea Midline, No JVD, No Thyromegaly, +2 Carotid Pulse wo Bruit. Denies: Lymphadenopathy Lungs: Reports: Clear to Auscultation, Normal Respiratory Effort. Denies: Rhonchi, Rub, Wheezing Cardiovascular: Reports: Regular Rate, Regular Rhythm, No Murmurs, Other (No extrasystoles at time of exam). Denies: Gallops, Rubs GI/Abdominal Exam: Normal Bowel Sounds, Soft, Non-Tender, No Organomegaly, No Distention, No Abnormal Bruit, No Mass, Pelvis Stable, Other (Obese). No: Guarding (Male) Exam: Deferred Rectal (Males) Exam: Deferred Back Exam: Reports: Normal Inspection, Full Range of Motion. Denies: CVA Tenderness (L), CVA Tenderness (R), Muscle Spasm Extremities: No Pedal Edema, Normal Capillary Refill, Redness (Stable erythema and wound dehiscence with cockup wrist splint on the right wrist) Skin: Reports: Other (As above) Wound/Incisions: Reports: Healing Well Neurological: Reports: No New Focal Deficit Psy/Mental Status: Reports: Alert, Normal Affect, Normal Mood. Denies: Agitated , Hallucinations, Withdrawal Symptoms EKG INTERPRETATION EKG Date: 10/26/18 Time: 07:38 Rhythm: NSR Rate (Beats/Min): 64 [place]: Normal (Left cardiac axis) P-Wave: Enlarged (Moderate diffuse biphasic P waves) QRS: Normal (QRS interval of 0.09 seconds representing repolarization changes with T-wave inversion in lead 3) ST-T: Normal (As above) QT: Normal TN/PQ Interval: 0.17 seconds Comparison: No Change (Since Last EKGs 2 on 10/25/18) EKG Interpretation Comments: 1. No acute ischemic changes 2. Probable left atrial enlargement 3. PACs-improved 4. Repolarization changes
== END 2018-10-26 10:32 | disposition home or self-care (01) ==
LOC: LL.ED 15:26 → LL.MS 17:11
PROVIDERS: ADMIT Family Medicine; ATTEND Family Medicine
DX: I25.118 Atherosclerotic heart disease of native coronary artery with other forms of angina pectoris (principal); I49.1 Atrial premature depolarization; I10 Essential (primary) hypertension; M15.0 Primary generalized (osteo)arthritis; E78.2 Mixed hyperlipidemia; J43.1 Panlobular emphysema; R73.9 Hyperglycemia, unspecified; L03.113 Cellulitis of right upper limb; E78.00 Pure hypercholesterolemia, unspecified; M10.9 Gout, unspecified; Z79.1 Long term (current) use of non-steroidal anti-inflammatories (NSAID); Z79.899 Other long term (current) drug therapy; Z79.02 Long term (current) use of antithrombotics/antiplatelets
CPT/HCPCS: 36415; 71045; 80053; 80061; 82550; 82553; 83036; 83605; 83735; 83880; 84443; 84484; 84550; 85025; 85379; 85610; 85730; 93005; A9270; J1650; J3490; 99285-25

== ENCOUNTER 2020-02-06 13:47 | Emergency (ER) | payer BC ==
[2020-02-06] MEDS ORDERED: Aspirin 81 MG Tab.Chew CHEW ONE (13:50)
[2020-02-06] MEDS ORDERED: Ticagrelor 90 MG Tab PO ONE (13:50)
[2020-02-06] MEDS ORDERED: Famotidine 20 MG/2 ML SDV IVPUSH ONE (13:50)
--- NOTE | 2020-02-06 13:50 | EDM.PDOC ---
ED HPI GENERAL MEDICAL PROBLEM - General Chief Complaint: Chest Pain Stated Complaint: chest pain Time Seen by Provider: 02/06/20 13:49 Source of Information: Reports: Patient, Old Records ([facility] chart/EMR), Other ([facility] E[facility] reviewed on 10/25/2018) History Limitations: Reports: No Limitations - History of Present Illness INITIAL COMMENTS - FREE TEXT/NARRATIVE: The patient drove himself to the emergency room via private automobile for evaluation of 5/10 retrosternal chest "burning" and possible pressure with no radiation of this discomfort. Note that symptoms started about 10 AM this morning while he was sitting down at work with the patient advised by his assistant quality manager at [facility] last week to discontinue his Plavix. He did take his morning medications. Symptoms improved to 3/10 at time of arrival to our facility with no other medications taken for symptoms to this point. The patient denies any heart flutter, dizziness, orthostasis, orthopnea, diaphoresis, paresthesias, recent decreased exercise tolerance, or any other anginal-type symptoms. No recent history of abdominal pain, heartburn, nausea, diarrhea, melena, gross hematochezia, or any food intolerance, including fatty foods, etc. with normal bowel movement 2 days ago similar to his problems with chronic constipation. He denies any gross hematuria, colic, or other UTI symptoms. The patient also denies any recent fever, cough, wheezing, dyspnea, etc.. Onset: Today, Sudden Onset Date: 02/06/20 Onset Time: 10:00 Duration: Constant, Improving Location: Reports: Chest. Denies: Head, Face, Neck, Abdomen, Back, Pelvis, Upper Extremity, Left, Upper Extremity, Right, Lower Extremity, Left, Lower Extremity, Right, Radiates to Quality: Reports: Same as Previous Episode, Other (As above) Severity: Mild Improves with: Reports: None Worsens with: Reports: None Context: Reports: Other (As above). Denies: Activity, Sick Contact, Trauma Associated Symptoms: Reports: Chest Pain. Denies: Confusion, Cough, cough w sputum, Diaphoresis, Fever/Chills, Headaches, Loss of Appetite, Malaise, Nausea/Vomiting, Rash, Seizure, Shortness of Breath, Syncope, Weakness Treatments RFID ENGINEER: Reports: Other (see below) (None) Middle Chest Pain Score (Numeric/FACES): 3 - Related Data Allergies Allergy/AdvReac Type Severity Reaction Status Date / Time No Known Allergies Allergy Verified 02/06/20 13:48 Home Meds: Home Meds Colchicine 0.6 mg PO DAILY 10/25/18 [History] Ezetimibe [Zetia] 10 mg PO DAILY 10/25/18 [History] Metoprolol Succinate [Toprol XL] 0.5 tab PO DAILY 10/25/18 [History] Nitroglycerin [Nitrostat] 1 tab SL Q5M PRN 10/25/18 [History] atorvaSTATin Calcium [Lipitor] 1 tab PO DAILY 10/25/18 [History] lisinopriL [Prinivil] 2.5 mg PO DAILY 10/25/18 [History] Aspirin [Aspirin EC] 1 tab PO DAILY 02/06/20 [History] Fenofibrate Nanocrystallized [Fenofibrate] 1 tab PO DAILY 02/06/20 [History] Past Medical History HEENT History: Reports: Allergic Rhinitis, Impaired Vision, Other (See Below). 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 Denies: Afib, Aneurysm, Blood Clots/VTE/DVT, Pacemaker, PVD, Syncope Other Cardiovascular History: PACs. History of probable multiple MIs since 2010, including on 02/18/11 and 12/06/12 with multiple stents as below. Mild cardiomegaly with borderline ischemic cardiomyopathy and grade 1 diastolic dysfunction by echocardiogram. Respiratory History: Reports: COPD, Intubation, Previous, Pulmonary Fibrosis, Other (See Below). Denies: Asthma, Bronchitis, Recurrent, Intubation, Difficult, PE, Pneumonia, Recurrent, Pneumothorax, Sleep Apnea, TB Other Respiratory History: COPD and pulmonary fibrosis by chest x-ray with no current medical therapy. Gastrointestinal History: Reports: Cholelithiasis, Chronic Constipation, Colon Polyp, Other (See Below). Denies: Bowel Obstruction, Celiac Disease, Chronic Diarrhea, Diverticulosis, Fatty Liver, Fecal Incontinence, Gastritis, GERD, GI Bleed, Hepatitis, Hiatal Hernia, Inflammatory Bowel Disease, Irritable Bowel Syndrome, Jaundice, Pancreatitis, PUD Other Gastrointestinal History: Tubular adenoma of the colon excised on 05/24/13. Gallbladder polyp. Cholelithiasis requiring surgery as below. Fatty liver secondary to hyperlipidemia. Genitourinary History: Reports: BPH, Chronic Renal Insuffiency, Other (See Below). Denies: Acute Renal Failure, Renal Calculus, STD, Urinary Incontinence, UTI, Recurrent Other Genitourinary History: Stage III renal insufficiency. Musculoskeletal History: Reports: Arthritis, Back Pain, Chronic, Fracture, Gout, Neck Pain, Chronic, Osteoarthritis. Denies: Amputation, Fibromyalgia, RA, SLE Other Musculoskeletal History: Right-sided carpal tunnel syndrome with surgery as below. Previous pelvic fracture in 2004 with surgery as below. Bilateral olecranon bursitis requiring surgery as below. Right shoulder rotator cuff tear requiring surgery as below. Bilateral calcaneal spurs. Left elbow fracture in March 2009. Avulsion fracture of the middle phalanx of digit #4 of the right hand on 10/24/02. Neurological History: Reports: None. Denies: Alzheimers Disease, Cerebral Aneurysms, Concussion, CVA, Headaches, Chronic, Head Trauma, Migraines, MS, Neuropathy, Peripheral, Parkinson's, Seizure, TIA, Vertigo Psychiatric History: Reports: Anxiety, Depression. Denies: Abuse, Victim of, ADD, ADHD, Alzheimers Disease, Psych Hospitalization(s), PTSD, Suicide Attempt, Suicidal Ideation Endocrine/Metabolic History: Reports: Obesity/BMI 30+. Denies: Diabetes, Gestational, Diabetes, Type I, Diabetes, Type II, Diabetes Mellitus, Type 3c, Hypothyroidism, IDDM Hematologic History: Reports: None. Denies: Anemia, Blood Transfusion(s), Iron Deficiency Immunologic History: Reports: None. Denies: AIDS, HIV, SLE Oncologic (Cancer) History: Reports: None. Denies: Basal Cell Carcinoma, Colon, Hodgkin's Lymphoma, Leukemia, Lymphoma, Malignant Melanoma, Non-Hodgkin's Lymphoma, Prostate, Squamous Cell Carcinoma Dermatologic History: Reports: None. Denies: Chronic Cellulitis, Eczema - Infectious Disease History Infectious Disease History: Reports: Chicken Pox, Measles, Mumps. Denies: C- Difficile, Meningitis, Mononucleosis, MRSA, Novel Coronavirus, Pertussis (Whooping Cough), Rheumatic Fever, SARS, Scarlet Fever, Shingles, TB, VRE - Past Surgical History Head Surgeries/Procedures: Reports: None HEENT Surgical History: Reports: Oral Surgery, Other (See Below). Denies: Adenoidectomy, Cataract Surgery, Eye Surgery, Laser Surgery, LASIK, Myringotomy w Tube(s), Naso-Sinus Surgery, Tonsillectomy Other HEENT Surgeries/Procedures: [place] teeth extraction 4 in the with additional multiple teeth extractions. Cardiovascular Surgical History: Reports: Coronary Artery Stent, Percutaneous Transluminal Angioplasty, Other (See Below). Denies: Pacer, Varicose Other Cardiovascular Surgeries/Procedures: By patient history Multiple previous PTCA/drug-eluting stents since 2010 with patient estimating a total of 10 stents in 3 separate cardiac procedures. Per [facility] records patient did have a PTCA/stent 2 of previous stent thrombosis in the mid LAD on 01/31/17 with additional PTCA/stent of the first obtuse marginal and PTCA only of the first diagonal coronary artery. PTCA/stent of the first posterolateral segmental coronary artery on 07/15/14. Respiratory Surgical History: Reports: None. Denies: Thoracentesis GI Surgical History: Reports: Cholecystectomy, Colonoscopy, Hernia, Abdominal, Polypectomy, Other (See Below). Denies: Appendectomy, EGD, Hernia, Inguinal, Hernia Repair/Other Other GI Surgeries/Procedures: Initial colonoscopy on 05/24/13 with polypectomy. Laparoscopic cholecystectomy with concomitant umbilical hernia repair on 02/17/12 Male Surgical History: Reports: Circumcision, Other (See Below). Denies: TURP-Transurethral Resection of Prostate, Vasectomy Other Male Surgeries/Procedures: Circumcision as an . Endocrine Surgical History: Reports: None. Denies: Thyroid Biopsy Neurological Surgical History: Reports: None. Denies: C-Spine, Discectomy, Laminectomy, Lumbar Spine, Sacral Spine, Spinal Fusion, Thoracic Spine, Vertebroplasty Musculoskeletal Surgical History: Reports: Carpal Tunnel, ORIF, Shoulder Surgery, Other (See Below). Denies: Arthroscopic Procedure, Ganglion Cyst, Joint Replacement Other Musculoskeletal Surgeries/Procedures:: Right carpal tunnel release on 07/13/18. Right shoulder rotator cuff repair in 2007. ORIF of the pubic symphysis on 09/25/04. Left olecranon bursa excision on 05/11/04 with right olecranon bursa excision in March 2002. Left elbow fusion secondary to fracture in March 2009. Oncologic Surgical History: Reports: None Dermatological Surgical History: Reports: None - Past Imaging History Past Imaging History: Reports: Angiography (Multiple heart catheterizations last on 01/31/17 at time of repeat cardiac stents as above with heart c atheterizations on 01/30/17, 07/15/14, and 12/07/12.), Cardiac Echo (Last echocardiogram on 01/30/17 with ejection fraction of 65% with previous echocardiogram on 07/16/14 and 02/08/11 with ejection fraction of 56%.), Carotid US (Carotid artery Doppler studies on 03/11/11 and 05/07/08), CAT Scan (CT of the chest on 06/19/13. CT of the brain on 07/15/08 and 05/07/08.), MRI (MRI of the right shoulder on 04/10/07. MRI of the brain on 10/29/09.), PFT (PFTs with diffusion studies on 06/19/13.), Stress Testing (Last Cardiolite stress test on 11/09/2018 was negative with ejection fraction of 73%. Previous Cardiolite stress test 10/21/15 with ejection fraction of 61%, on 02/26/15 and 01/08/11 with ejection fraction of 46%. Low level stress tests on 08/16/14, 02/16/17, and 02/16/11.), Ultrasound (Abdominal ultrasound on 09/29/11.), Other (See Below) (EMG and nerve conduction studies of the wrists on 06/21/18.) Social & Family History - Family History HEENT: Reports: None. Denies: Cataract, Glaucoma, Macular Degeneration, Retinal Detachment Cardiac: Reports: Arrhythmia, CAD, NV, Pacemaker, Stent, Syncope, Other (See Bel ow). Denies: Afib, Aneurysm, Blood Clots/VTE/DVT, Heart Failure, High Cholesterol, Hypertension Other Cardiac Family History: Father with history of pacemaker history of sync ope, unknown type of arrhythmia, and previous PTCA/stents and possible NV in his 70s. Brothers 2 with PTCA/stents and possible NV both in their 50s. Respiratory: Reports: None. Denies: Asthma, COPD, PE, Pneumothorax, Sleep Apnea GI: Reports: None. Denies: Celiac Disease, Cholelithiasis, Colon Polyps, GI bleed, Inflammatory Bowel Disease, Irritable Bowel Syndrome, PUD : Reports: None OBGYN: Reports: None. Denies: Endometriosis, Recurrent Spontaneous Musculoskeletal: Reports: None. Denies: Arthritis, Gout, RA, SLE Neurological: Reports: CVA, Other (See Below). Denies: Alzheimers Disease, Dementia, Migraines, MS, Neuropathy, Peripheral, Parkinson's, Seizure, TIA Other Neurological Family History: Father with CVA in his 70s. Paternal grandfather with fatal CVA in his 70s. Psychiatric: Reports: None. Denies: Abuse, Victim of, ADD, ADHD, Anxiety, Depression, Psych Hospitalization(s), PTSD, Suicide Attempt Endocrine/Metabolic: Reports: Diabetes, type II, IDDM, Other (See Below). Denies: Diabetes, Type I, Diabetes Mellitus, Type 3c, Hypothyroidism Other Endocrine/Metabolic Family History: Maternal grandmother and sister with IDDM Hematologic: Reports: None. Denies: Anemia, SLE Immunologic: Reports: None. Denies: AIDS, HIV, SLE Dermatologic: Reports: None Oncologic: Reports: Bone, Lung, Skin, Other (See Below) Other Oncologic Family History: Brother with fatal lung cancer at age 61 with history of tobacco use. Maternal grandmother with unknown type of fatal cancer in her 70s. Niece with fatal bone cancer at age 13. Father with unknown type of skin cancer. - Tobacco Use Tobacco Use Status *Q: Never Tobacco User Tobacco Use Within Last Twelve Months: No Used Tobacco, but Quit: No Smoking Cessation Information Provided To Patient: No Second Hand Smoke Exposure: No Second Hand Smoke Education Provided: No - Caffeine Use Caffeine Use: Reports: Soda (15 sodas per day). Denies: Coffee, Energy Drinks, Tea - Alcohol Use Alcohol Use History: Yes Days Per Week of Alcohol Use: 0 Number of Drinks Per Day: 3 Number of Drinks Per Day Comment: DWI at age 21 with no previous problems with alcohol abuse or treatment. Usually drinks vodka, mixed drinks, etc. for holidays. Total Drinks Per Week: 0 Alcohol Use in Last Twelve Months: Yes - Recreational Drug Use Recreational Drug Use: No Drug Use in Last 12 Months: No Recreational Drug Type: Denies: Amphetamines (Speed), Cocaine, Heroin, Inhalants (Glues, Solvents, Aerosols), LSD (Acid), Marijuana/Hashish, Methamphetamine, Morphine, Oxycodone - Living Situation & Occupation Living situation: Reports: Single (No children), Alone Occupation: Employed ([employer] and works in the [employer] in [employer]) ED ROS GENERAL - Review of Systems Review Of Systems: Comprehensive ROS is negative, except as noted in HPI. ED EXAM, GENERAL - Physical Exam Exam: See Below Exam Limited By: No Limitations General Appearance: Alert, WD/WN, No Apparent Distress Eye Exam: Bilateral Eye: EOMI, Normal Inspection (No nystagmus. The patient is wearing glasses), PERRL Ears: Normal External Exam, Normal Canal, Hearing Grossly Normal, Normal TMs Nose: Normal Inspection, Normal Mucosa, No Blood Throat/Mouth: Normal Inspection, Normal Lips, Normal Teeth (Multiple missing teeth), Normal Gums, Normal Oropharynx, Normal Voice, No Airway Compromise. No: Dysphagia, Perioral Cyanosis Head: Atraumatic, Normocephalic Neck: Normal Inspection, Supple, Non-Tender, Full Range of Motion. No: Carotid Bruit, Lymphadenopathy (L), Lymphadenopathy (R), Thyromegaly Respiratory/Chest: No Respiratory Distress, Lungs Clear, Normal Breath Sounds, No Accessory Muscle Use, Chest Non-Tender. No: Pleural Rub, Retractions Cardiovascular: Normal Peripheral Pulses, Regular Rate, Rhythm, No Edema, No Gallop, No JVD, No Murmur, No Rub. No: Gallop/S3, Gallop/S4, Friction Rub Peripheral Pulses: 2+: Radial (L), Radial (R), Dorsalis Pedis (L), Dorsalis Pedis (R) GI/Abdominal: Normal Bowel Sounds, Soft, Non-Tender, No Organomegaly, No Distention, No Abnormal Bruit, No Mass, Pelvis Stable, Other (Obese). No: Guard ing (Male) Exam: Deferred Rectal (Males) Exam: Deferred Back Exam: Normal Inspection, Full Range of Motion. No: CVA Tenderness (L), CVA Tenderness (R), Muscle Spasm Extremities: Normal Inspection, Normal Range of Motion, Non-Tender, No Pedal Edema, Normal Capillary Refill. No: Osiel's Sign Neurological: Alert, Oriented, CN II-XII Intact, Normal Cognition, Normal Gait, Normal Reflexes (Negative Babinski's), No Motor/Sensory Deficits Psychiatric: Normal Affect, Normal Mood Skin Exam: Warm, Dry, Intact, Normal Color, No Rash. No: Diaphoretic, Wound/Incision Lymphatic: No Adenopathy #1 Interpretation EKG Date: 02/06/20 Time: 13:55 Rhythm: NSR (With resolution of previous PACs) Rate (Beats/Min): 70 [place]: Normal (Left cardiac access) P-Wave: Enlarged (Mild diffuse biphasic P waves) QRS: Normal (0.09 seconds) ST-T: Normal (T wave inversion in lead III and V1 with resolution of previous T wave inversions in leads V1, V4 through V6, II, and III) NV/PQ Interval: 0.17 seconds with mild pulmonary hypertension by EKG Comparison: Change From Previous EKG (As above since 10/25/2018) EKG Interpretation Comments: 1. No acute ischemic changes 2. Left atrial enlargement 3. Pulmonary hypertension by EKG Course - Vital Signs Last Recorded V/S: Last Vital Signs Temp 36.8 C 02/06/20 13:47 Pulse 67 02/06/20 15:29 Resp 12 02/06/20 15:29 BP 136/75 02/06/20 15:29 Pulse Ox 99 02/06/20 15:29 Vital Signs - 24 hr 02/06/20 02/06/20 02/06/20 13:47 14:00 14:30 Temperature [ 36.8 C Temporal] Pulse, 68 73 71 Peripheral [ Pulse Oximetry] Respiratory 12 13 12 Rate Blood Pressure 156/86 H 125/79 127/74 [Left Upper Arm ] O2 Sat by Pulse 97 99 97 Oximetry 02/06/20 02/06/20 15:00 15:29 Temperature [ Temporal] Pulse, 69 67 Peripheral [ Pulse Oximetry] Respiratory 10 L 12 Rate Blood Pressure 157/81 H 136/75 [Left Upper Arm ] O2 Sat by Pulse 100 99 Oximetry - Orders/Labs/Meds Orders: Active Orders 24 hr Category Date Time Status Cardiac Monitoring [RC] . DIRECTED Care 02/06/20 13:50 Active EKG Documentation Completion [RC] ASDIRECTED Care 02/06/20 13:50 Active Oxygen Therapy, ED [RC] PRN Care 02/06/20 13:50 Active Peripheral IV Care [RC] . DIRECTED Care 02/06/20 13:50 Active Peripheral IV Care [RC] . DIRECTED Care 02/06/20 14:57 Active Pulse Oximetry [RC] CONTINUOUS Care 02/06/20 13:50 Active Up With Assistance [RC] PFP Care 02/06/20 13:50 Active Vital Signs [RC] PFP Care 02/06/20 13:50 Active Nothing per Oral Now Diet [DIET] Diet 02/06/20 Breakfast Active Chest 1V Frontal [CR] Stat Exams 02/06/20 13:50 Taken Heparin Sodium/0.45% NaCl [Heparin 25,000 Units in 1/2 Med 02/06/20 15:00 Active NS 500 ML] 500 ml IV TITRATE Sodium Chloride 0.9% [Saline Flush] Med 02/06/20 13:50 Active 10 ml FLUSH ASDIRECTED PRN Sodium Chloride 0.9% [Saline Flush] Med 02/06/20 14:57 Active 10 ml FLUSH ASDIRECTED PRN Obtain Past Medical Record [OM.PC] Urgent Oth 02/06/20 13:50 Active Peripheral IV Insertion Adult [OM.PC] Stat Oth 02/06/20 13:50 Ordered Peripheral IV Insertion Adult [OM.PC] Stat Oth 02/06/20 14:57 Ordered Resuscitation Status Stat Resus Stat 02/06/20 13:50 Ordered Medication Orders Heparin Sodium/Sodium Chloride (Heparin 25,000 Units In 1/2 Ns 500 Ml) 500 mls @ 21.881 mls/hr IV TITRATE TAYLOR; Protocol Last Admin: 02/06/20 16:09 Dose: 12 units/kg/hr, 21.881 mls/hr Documented by: MADONNA Cosigned by: PAM Sodium Chloride (Saline Flush) 10 ml FLUSH ASDIRECTED PRN PRN Reason: Keep Vein Open Last Admin: 02/06/20 15:14 Dose: 10 ml Documented by: Admin: 02/06/20 13:56 Dose: 10 ml Documented by: MADONNA Sodium Chloride (Saline Flush) 10 ml FLUSH ASDIRECTED PRN PRN Reason: Keep Vein Open Labs: Laboratory Tests 02/06/20 02/06/20 02/06/20 Range/Units 14:05 14:05 14:05 WBC 8.6 (4.0-10.2) K/uL RBC 4.47 (4.33-5.41) M/uL Hgb 13.8 (13.1-16.8) g/dL Hct 41.7 (39.0-49.0) % MCV 93.3 (84.0-98.0) fL MCH 30.9 (28.2-33.3) pg MCHC 33.1 (31.7-36.0) g/dL RDW 13.9 (11.2-14.1) % Plt Count 226 (150-350) K/uL Neut % (Auto) 65.8 (45.0-80.0) % Lymph % (Auto) 19.9 (10.0-50.0) % [place] % (Auto) 12.6 (2.0-14.0) % Eos % (Auto) 1.6 (0.0-5.0) % Baso % (Auto) 0.1 (0.0-2.0) % Neut # (Auto) 5.66 (1.40-7.00) K/uL Lymph # (Auto) 1.71 (0.50-3.50) K/uL [place] # (Auto) 1.08 H (0.00-1.00) K/uL Eos # (Auto) 0.14 (0.00-0.50) K/uL Baso # (Auto) 0.01 (0.00-0.20) K/uL PT 10.3 (9.5-12.0) SEC INR 1.0 APTT 24.9 (24.5-32.8) SEC D-Dimer, Quantitative 131 (0-400) ng/mL Sodium (136-145) mmol/L Potassium (3.5-5.1) mmol/L Chloride (98-107) mmol/L Carbon Dioxide (21.0-32.0) mmol/L BUN (7-18) mg/dL Creatinine (0.51-1.17) mg/dL Est Cr Clr Drug Dosing Estimated GFR (MDRD) mL/min Glucose (74-106) mg/dL Lactic Acid (0.4-2.0) mmol/L Uric Acid (2.6-7.2) mg/dL Calcium (8.5-10.1) mg/dL Magnesium (1.8-2.4) mg/dL Total Bilirubin (0.2-1.0) mg/dL AST (15-37) U/L ALT (12-78) U/L Alkaline Phosphatase (46-116) IU/L Creatine Kinase (26-308) U/L Creatine Kinase Index (0.0-2.5) % CK-MB (CK-2) (0.00-3.60) ng/mL Troponin I (0.000-0.056) ng/mL NT-Pro-B Natriuret Pep (0-125) pg/mL Total Protein (6.4-8.2) g/dL Albumin (3.4-5.0) g/dL TSH, Ultra Sensitive (0.358-3.740) mIU/mL 02/06/20 02/06/20 Range/Units 14:05 14:05 WBC (4.0-10.2) K/uL RBC (4.33-5.41) M/uL Hgb (13.1-16.8) g/dL Hct (39.0-49.0) % MCV (84.0-98.0) fL MCH (28.2-33.3) pg MCHC (31.7-36.0) g/dL RDW (11.2-14.1) % Plt Count (150-350) K/uL Neut % (Auto) (45.0-80.0) % Lymph % (Auto) (10.0-50.0) % [place] % (Auto) (2.0-14.0) % Eos % (Auto) (0.0-5.0) % Baso % (Auto) (0.0-2.0) % Neut # (Auto) (1.40-7.00) K/uL Lymph # (Auto) (0.50-3.50) K/uL [place] # (Auto) (0.00-1.00) K/uL Eos # (Auto) (0.00-0.50) K/uL Baso # (Auto) (0.00-0.20) K/uL PT (9.5-12.0) SEC INR APTT (24.5-32.8) SEC D-Dimer, Quantitative (0-400) ng/mL Sodium 139 (136-145) mmol/L Potassium 4.4 (3.5-5.1) mmol/L Chloride 103 (98-107) mmol/L Carbon Dioxide 25.6 (21.0-32.0) mmol/L BUN 22 H (7-18) mg/dL Creatinine 1.14 (0.51-1.17) mg/dL Est Cr Clr Drug Dosing TNP Estimated GFR (MDRD) > 60 mL/min Glucose 95 (74-106) mg/dL Lactic Acid 1.9 (0.4-2.0) mmol/L Uric Acid 7.5 H (2.6-7.2) mg/dL Calcium 8.6 (8.5-10.1) mg/dL Magnesium 2.1 (1.8-2.4) mg/dL Total Bilirubin 0.5 (0.2-1.0) mg/dL AST 16 (15-37) U/L ALT 23 (12-78) U/L Alkaline Phosphatase 28 L (46-116) IU/L Creatine Kinase 85 (26-308) U/L Creatine Kinase Index 2.1 (0.0-2.5) % CK-MB (CK-2) 1.80 (0.00-3.60) ng/mL Troponin I 0.241 H* (0.000-0.056) ng/mL NT-Pro-B Natriuret Pep 63 (0-125) pg/mL Total Protein 7.1 (6.4-8.2) g/dL Albumin 3.9 (3.4-5.0) g/dL TSH, Ultra Sensitive 1.027 (0.358-3.740) mIU/mL Meds: Medications Generic Name Dose Route Start Last Admin Trade Name Freq PRN Reason Stop Dose Admin Heparin Sodium/Sodium Chloride 500 mls @ 21.881 mls/hr 02/06/20 15:00 02/06/20 16:09 Heparin 25,000 Units In 1/2 Ns 500 Ml IV 12 units/kg/hr TITRATE TAYLOR 21.881 mls/hr Administration Protocol 12 UNITS/KG/HR Sodium Chloride 10 ml 02/06/20 13:50 02/06/20 15:14 Saline Flush FLUSH 10 ml ASDIRECTED PRN Administration Keep Vein Open Sodium Chloride 10 ml 02/06/20 14:57 Saline Flush FLUSH ASDIRECTED PRN Keep Vein Open Discontinued Medications Generic Name Dose Route Start Last Admin Trade Name Jonna PRN Reason Stop Dose Admin Aspirin 324 mg 02/06/20 13:50 02/06/20 13:55 Aspirin CHEW 02/06/20 13:51 324 mg ONETIME ONE Administration Famotidine 40 mg 02/06/20 13:50 02/06/20 13:56 Pepcid IVPUSH 02/06/20 13:51 40 mg ONETIME ONE Administration Heparin Sodium (Porcine) 4,000 units 02/06/20 14:57 02/06/20 15:14 Heparin Sodium IVPUSH 02/06/20 14:58 4,000 units ONETIME ONE Administration Ticagrelor 180 mg 02/06/20 13:50 02/06/20 13:56 Brilinta PO 02/06/20 13:51 180 mg ONETIME ONE Administration - Radiology Interpretation Free Text/Narrative:: alternative dispute resolution mediator shows normal sinus rhythm with heart rate in the 70s to 80s with no ectopy or arrhythmia. Chest x-ray, portable, shows somewhat poor inspiratory film with mildly elevated right hemidiaphragm. Moderate COPD changes were noted with no cardiomegaly, C HF, pulmonary infiltrates, pneumothorax, etc. Departure - Departure Time of Disposition: 16:30 Disposition: DC/Tfer to Acute Hospital 02 Reason for Transfer *Q: Other (Cardiology consultation) Condition: Good Clinical Impression: Hyperglycemia COPD (chronic obstructive pulmonary disease) Qualifiers: COPD type: emphysema Emphysema type: panlobular Qualified Code(s): J43.1 - Panlobular emphysema Hyperlipidemia Qualifiers: Hyperlipidemia type: mixed hyperlipidemia Qualified Code(s): E78.2 - Mixed hyperlipidemia Coronary artery disease Qualifiers: Coronary Disease-Associated Artery/Lesion type: [place] artery [place] vs. transplanted heart: sioux heart Associated angina: with stable angina Qualified Code(s): I25.118 - Atherosclerotic heart disease of [place]oux coronary artery with other forms of angina pectoris Hypertension Qualifiers: Hypertension type: essential hypertension Qualified Code(s): I10 - Essential (primary) hypertension Osteoarthritis Qualifiers: Osteoarthritis location: multiple joints Osteoarthritis type: primary Qualified Code(s): M15.0 - Primary generalized (osteo)arthritis Referrals: PCP,None [Primary Care Provider] - Forms: ED Department Discharge, Interfacility Transfer JEAN Sepsis Event Note (ED) - Focused Exam Vital Signs: Vital Signs Temp Pulse Resp BP Pulse Ox 02/06/20 15:29 67 12 136/75 99 02/06/20 15:00 69 10 L 157/81 H 100 02/06/20 14:30 71 12 127/74 97 02/06/20 14:00 73 13 125/79 99 02/06/20 13:47 36.8 C 68 12 156/86 H 97 - Problem List & Annotations (1) Coronary artery disease SNOMED Code(s): 53546140 Code(s): I25.10 - ATHSCL HEART DISEASE OF [place] CORONARY ARTERY W/O ANG PCTRS Status: Chronic Priority: Medium Current Visit: Yes Annotation/Comment:: Mildly atypical chest pain and anginal type symptoms with chest pain protocol initiated immediately upon patient's arrival to the emergency room. Note positive troponin I as above with initiation of sodium heparin per non-STEMI protocol. Chest pain completely resolved after initial treatment in the emergency room. Initial telephone consultation at [address] [facility] with subsequent telephone consultations at 3:15 PM and 3:30 PM, with Dr. Muro, emergency room physician/hospitalist at [facility], who does agree to accept the patient for direct admission and further cardiology consultation and work-up, with no further treatment tila mmendations given. Note significant previous coronary artery disease as above. Ambulance transfer with chief deputy sheriff accompaniment to [facility]. Vital signs and physical exam were stable at time of transfer. Qualifiers: Coronary Disease-Associated Artery/Lesion type: [place] artery [place] vs. transplanted heart: [place] heart Associated angina: with stable angina Qualified Code(s): I25.118 - Atherosclerotic heart disease of [place] coronary artery with other forms of angina pectoris (2) Hyperglycemia SNOMED Code(s): 83122005 Code(s): R73.9 - HYPERGLYCEMIA, UNSPECIFIED Status: Acute Priority: Medium Current Visit: Yes Onset Date: ~10/26/18 Annotation/Comment:: History of elevated glycosylated hemoglobin but no true diabetes diagnosed to this point. Continue to observe closely by regular providers. (3) COPD (chronic obstructive pulmonary disease) SNOMED Code(s): 79822025 Code(s): J44.9 - CHRONIC OBSTRUCTIVE PULMONARY DISEASE, UNSPECIFIED Status: Chronic Priority: Medium Current Visit: Yes Annotation/Comment:: No recent fever, bronchitic type symptoms, or previous medical therapy required. Qualifiers: COPD type: emphysema Emphysema type: panlobular Qualified Code(s): J43.1 - Panlobular emphysema (4) Hyperlipidemia SNOMED Code(s): 26685255 Code(s): E78.5 - HYPERLIPIDEMIA, UNSPECIFIED Status: Chronic Priority: Medium Current Visit: Yes Annotation/Comment:: Currently under therapy. Continue to observe closely by accepting and regular providers. Qualifiers: Hyperlipidemia type: mixed hyperlipidemia Qualified Code(s): E78.2 - Mixed hyperlipidemia (5) Hypertension SNOMED Code(s): 81832753 Code(s): I10 - ESSENTIAL (PRIMARY) HYPERTENSION Status: Chronic Priority: Medium Current Visit: Yes Annotation/Comment:: Blood pressures relatively stable during emergency room care. Continue to observe closely by his accepting and regular providers. Qualifiers: Hypertension type: essential hypertension Qualified Code(s): I10 - Essential (primary) hypertension (6) Osteoarthritis SNOMED Code(s): 250493616 Code(s): M19.90 - UNSPECIFIED OSTEOARTHRITIS, UNSPECIFIED SITE Status: Chronic Priority: Medium Current Visit: Yes Annotation/Comment:: Otherwise stable by history with no recent gout attacks despite current elevated uric acid level. Qualifiers: Osteoarthritis location: multiple joints Osteoarthritis type: primary Qualified Code(s): M89.49 - Other hypertrophic osteoarthropathy, multiple sites - Problem List Review Problem List Initiated/Reviewed/Updated: Yes - My Orders Last 24 Hours: My Active Orders 02/06/20 Breakfast Nothing per Oral Now Diet [DIET] 02/06/20 13:50 Cardiac Monitoring [RC] . DIRECTED EKG Documentation Completion [RC] ASDIRECTED Oxygen Therapy, ED [RC] PRN Peripheral IV Care [RC] . DIRECTED Pulse Oximetry [RC] CONTINUOUS Up With Assistance [RC] PFP Vital Signs [RC] PFP Chest 1V Frontal [CR] Stat Sodium Chloride 0.9% [Saline Flush] 10 ml FLUSH ASDIRECTED PRN Obtain Past Medical Record [OM.PC] Urgent Peripheral IV Insertion Adult [OM.PC] Stat Resuscitation Status Stat 02/06/20 14:57 Peripheral IV Care [RC] . DIRECTED Sodium Chloride 0.9% [Saline Flush] 10 ml FLUSH ASDIRECTED PRN Peripheral IV Insertion Adult [OM.PC] Stat 02/06/20 15:00 Heparin Sodium/0.45% NaCl [Heparin 25,000 Units in 1/2 NS 500 ML] 500 ml IV TITRATE - Assessment/Plan Last 24 Hours: My Active Orders 02/06/20 Breakfast Nothing per Oral Now Diet [DIET] 02/06/20 13:50 Cardiac Monitoring [RC] . DIRECTED EKG Documentation Completion [RC] ASDIRECTED Oxygen Therapy, ED [RC] PRN Peripheral IV Care [RC] . DIRECTED Pulse Oximetry [RC] CONTINUOUS Up With Assistance [RC] PFP Vital Signs [RC] PFP Chest 1V Frontal [CR] Stat Sodium Chloride 0.9% [Saline Flush] 10 ml FLUSH ASDIRECTED PRN Obtain Past Medical Record [OM.PC] Urgent Peripheral IV Insertion Adult [OM.PC] Stat Resuscitation Status Stat 02/06/20 14:57 Peripheral IV Care [RC] . DIRECTED Sodium Chloride 0.9% [Saline Flush] 10 ml FLUSH ASDIRECTED PRN Peripheral IV Insertion Adult [OM.PC] Stat 02/06/20 15:00 Heparin Sodium/0.45% NaCl [Heparin 25,000 Units in 1/2 NS 500 ML] 500 ml IV TITRATE Assessment:: As above Plan: As above. Extensive precautions were given to the patient, who is in agreement with the treatment plan. See Patient Instructions for further treatment and plan.
[2020-02-06] MEDS: Sodium Chloride 0.9% 10 ML Syringe FLUSH PRN ×2 (13:56→15:14)
[2020-02-06 14:28] LABS: PTT,PARTIAL THROMBOPLSTIN TIME 24.9 SEC (24.5-32.8)
[2020-02-06 14:53] LABS: CHLORIDE,CL 103 mmol/L (98-107); SODIUM,NA 139 mmol/L (136-145)
[2020-02-06] MEDS ORDERED: Sodium Chloride 0.9% 10 ML Syringe FLUSH PRN (14:57)
[2020-02-06] MEDS ORDERED: Heparin Sodium 5,000 Units/ML Vial IVPUSH ONE (14:57)
[2020-02-06] MEDS ORDERED: Heparin Sodium/0.45% NaCl 500 ML IV SCH (15:00)
== END 2020-02-06 16:30 ==
LOC: LL.ED 13:47
DX: I25.118 Atherosclerotic heart disease of native coronary artery with other forms of angina pectoris (principal); M15.0 Primary generalized (osteo)arthritis; I10 Essential (primary) hypertension; E78.2 Mixed hyperlipidemia; J43.1 Panlobular emphysema; R73.9 Hyperglycemia, unspecified; E66.9 Obesity, unspecified; Z68.34 Body mass index [BMI] 34.0-34.9, adult; Z79.82 Long term (current) use of aspirin; Z79.899 Other long term (current) drug therapy; I12.9 Hypertensive chronic kidney disease with stage 1 through stage 4 chronic kidney disease, or unspecified chronic kidney disease; N18.30 Chronic kidney disease, stage 3 unspecified; I25.2 Old myocardial infarction; Z95.5 Presence of coronary angioplasty implant and graft
CPT/HCPCS: 36415; 71045; 80053; 82550; 82553; 83605; 83735; 83880; 84443; 84484; 84550; 85025; 85379; 85610; 85730; 93005; 96365; 96375; 96376; 99285-25; A9270-GY; J1644; J3490

== ENCOUNTER 2020-06-20 16:08 | Emergency (ER) | payer BC ==
[2020-06-20] MEDS ORDERED: Sodium Chloride 0.9% 10 ML Syringe FLUSH PRN (16:10)
[2020-06-20] MEDS ORDERED: Famotidine 20 MG/2 ML SDV IVPUSH ONE (16:10)
--- NOTE | 2020-06-20 16:10 | EDM.PDOC ---
ED HPI GENERAL MEDICAL PROBLEM - General Chief Complaint: Neurological Problem Stated Complaint: Stroke Code Time Seen by Provider: 06/20/20 16:09 Source of Information: Reports: Patient, Old Records ([facility] chart/EMR), Other ([facility] E[facility] reviewed on 10/25/2018) History Limitations: Reports: No Limitations - History of Present Illness INITIAL COMMENTS - FREE TEXT/NARRATIVE: The patient was brought to the emergency room via private automobile by his friend/coworker for evaluation of sudden onset moderate forgetfulness including some aphasia without dysarthria with symptoms starting at about 3:30 PM this afternoon. He is a somewhat poor historian possibly secondary to his current mental status and/your baseline. The patient also noted some brief blurred vision at the initial onset of the above symptoms, however these have since resolved and was similar to his previous episodes secondary to his strabismus. He denies any history of recent fall, head injury, change in medications, etc. with patient currently seen in the pain clinic with this plan injections and then near the spinal cord, etc.. No history of recent headaches, other visual changes, diplopia, change in mental status, or other change in neurological status. The patient denies any chest pain/pressure, heart flutter, dizziness, orthostasis, orthopnea, diaphoresis, paresthesias, recent decreased exercise tolerance, or any other anginal-type symptoms. No recent history of abdominal pain, heartburn, nausea, diarrhea, melena, gross hematochezia, or any food intolerance, including fatty foods, etc. with normal bowel movement about 2 hours prior to arrival. He denies any gross hematuria, colic, or other UTI symptoms. The patient also denies any recent fever, cough, wheezing, dyspnea, etc... He denies any pain at this time. Onset: Today, Sudden Onset Date: 06/20/20 Onset Time: 15:30 Duration: Constant Location: Reports: Other (Stress test) Improves with: Reports: None Worsens with: Reports: None Context: Reports: Other (As above). Denies: Sick Contact, Trauma Associated Symptoms: Denies: Confusion, Chest Pain, Cough, Diaphoresis, Fever/Chills, Headaches, Loss of Appetite, Malaise, Nausea/Vomiting, Seizure, Shortness of Breath, Syncope, Weakness Treatments SEED TESTER: Reports: Other (see below) (None) - Related Data Allergies Allergy/AdvReac Type Severity Reaction Status Date / Time No Known Allergies Allergy Verified 06/10/20 09:11 Home Meds: Home Meds Colchicine 0.6 mg PO DAILY 10/25/18 [History] Ezetimibe [Zetia] 10 mg PO DAILY 10/25/18 [History] Metoprolol Succinate [Toprol XL] 0.5 tab PO DAILY 10/25/18 [History] Nitroglycerin [Nitrostat] 1 tab SL Q5M PRN 10/25/18 [History] atorvaSTATin Calcium [Lipitor] 1 tab PO DAILY 10/25/18 [History] lisinopriL [Prinivil] 2.5 mg PO DAILY 10/25/18 [History] Aspirin [Aspirin EC] 1 tab PO DAILY 02/06/20 [History] Fenofibrate Nanocrystallized [Fenofibrate] 1 tab PO DAILY 02/06/20 [History] methylPREDNISolone [Medrol Dose Pack] 84 mg PO DAILY #1 dospk 06/10/20 [Rx] Past Medical History HEENT History: Reports: Allergic Rhinitis, Impaired Vision, Other (See Below). 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 Denies: Afib, Aneurysm, Blood Clots/VTE/DVT, Heart Murmur, Pacemaker, PVD Other Cardiovascular History: Non-STEMI on 02/06/2020 with subsequent CABG as below. PACs. History of probable multiple MIs since 2010, including on 02/18/11 and 12/06/12 with multiple stents as below. Mild cardiomegaly with borderline ischemic cardiomyopathy and grade 1 diastolic dysfunction by echocardiogram. Respiratory History: Reports: COPD, Intubation, Previous, Pulmonary Fibrosis, Other (See Below). Denies: Asthma, Bronchitis, Recurrent, Intubation, Difficult, PE, Pneumonia, Recurrent, Pneumothorax, Sleep Apnea, TB Other Respiratory History: COPD and pulmonary fibrosis by chest x-ray with no current medical therapy. Gastrointestinal History: Reports: Cholelithiasis, Chronic Constipation, Colon Polyp, Fatty Liver, Other (See Below). Denies: Bowel Obstruction, Celiac Disease, Fecal Incontinence, GERD, GI Bleed, Hepatitis, Hiatal Hernia, Inflammatory Bowel Disease, Irritable Bowel Syndrome, Jaundice, Pancreatitis, PUD Other Gastrointestinal History: Tubular adenoma of the colon excised on 05/24/13. Gallbladder polyp. Cholelithiasis requiring surgery as below. Fatty liver secondary to hyperlipidemia. Genitourinary History: Reports: BPH, Chronic Renal Insuffiency, Prostate Disorder, Other (See Below). Denies: Acute Renal Failure, Renal Calculus, Retention, Urinary, STD, Urinary Incontinence Other Genitourinary History: Stage III renal insufficiency. Musculoskeletal History: Reports: Arthritis, Back Pain, Chronic, Fracture, Gout, Neck Pain, Chronic, Osteoarthritis. Denies: Amputation, RA, SLE Other Musculoskeletal History: Right-sided carpal tunnel syndrome with surgery as below. Previous pelvic fracture in 2004 with surgery as below. Bilateral olecranon bursitis requiring surgery as below. Right shoulder rotator cuff tear requiring surgery as below. Bilateral calcaneal spurs. Left elbow fracture in March 2009. Avulsion fracture of the middle phalanx of digit #4 of the right hand on 10/24/02. Neurological History: Reports: None. Denies: Alzheimers Disease, Cerebral Aneurysms, Concussion, CVA, Headaches, Chronic, Head Trauma, Migraines, MS, Neuropathy, Peripheral, Parkinson's, Seizure, TIA, Vertigo Psychiatric History: Reports: Anxiety, Depression. Denies: Abuse, Victim of, ADD, ADHD, Addiction, Psych Hospitalization(s), Psychosis, PTSD, Suicide Attempt, Suicidal Ideation Endocrine/Metabolic History: Reports: Obesity/BMI 30+, Other (See Below). Denies: Diabetes, Type I, Diabetes, Type II, Diabetes Mellitus, Type 3c, Hypothyroidism, IDDM, Osteopenia, Osteoporosis Other Endocrine/Metabolic History: Hyperglycemia without true diabetes. Hematologic History: Reports: None. Denies: Anemia, Blood Transfusion(s), Iron Deficiency Immunologic History: Reports: None. Denies: AIDS, HIV, SLE Oncologic (Cancer) History: Reports: None. Denies: Basal Cell Carcinoma, Colon, Hodgkin's Lymphoma, Leukemia, Lung, Lymphoma, Malignant Melanoma, Non-Hodgkin's Lymphoma, Prostate, Squamous Cell Carcinoma Dermatologic History: Reports: Seborrheic Dermatitis, Other (See Below) Other Dermatologic History: Seborrheic keratosis - Infectious Disease History Infectious Disease History: Reports: Chicken Pox, Measles, Mumps. Denies: C- Difficile, Meningitis, Mononucleosis, MRSA, Novel Coronavirus, Pertussis (Whooping Cough), Rheumatic Fever, Rubella, Scarlet Fever, Shingles, TB, VRE - Past Surgical History Head Surgeries/Procedures: Reports: None HEENT Surgical History: Reports: Oral Surgery, Other (See Below). Denies: Adenoidectomy, Eye Surgery, Laser Surgery, LASIK, Myringotomy w Tube(s), Naso- Sinus Surgery, Tonsillectomy Other HEENT Surgeries/Procedures: [place] teeth extraction 4 in the with additional multiple teeth extractions. Cardiovascular Surgical History: Reports: Coronary Artery Bypass, Coronary Artery Stent, Percutaneous Transluminal Angioplasty, Other (See Below). Denies: Pacer, Varicose Other Cardiovascular Surgeries/Procedures: CABG x3 on 02/11/2020. By patient history Multiple previous PTCA/drug-eluting stents since 2010 with patient estimating a total of 10 stents in 3 separate cardiac procedures. Per [facility] records patient did have a PTCA/stent 2 of previous stent thrombosis in the mid LAD on 01/31/17 with additional PTCA/stent of the first obtuse marginal and PTCA only of the first diagonal coronary artery. PTCA/stent of the first posterolateral segmental coronary artery on 07/15/14. Respiratory Surgical History: Reports: None. Denies: Thoracentesis GI Surgical History: Reports: Cholecystectomy, Colonoscopy, Hernia, Abdominal, Polypectomy, Other (See Below). Denies: Appendectomy, EGD, Hernia, Inguinal, Hernia Repair/Other Other GI Surgeries/Procedures: Initial colonoscopy on 05/24/13 with polypectomy. Laparoscopic cholecystectomy with concomitant umbilical hernia repair on 02/17/12 Male Surgical History: Reports: Circumcision, Other (See Below). Denies: TURP-Transurethral Resection of Prostate, Vasectomy Other Male Surgeries/Procedures: Circumcision as an infant. Endocrine Surgical History: Reports: None. Denies: Thyroid Biopsy Neurological Surgical History: Reports: None. Denies: C-Spine, Discectomy, Laminectomy, Lumbar Spine, Sacral Spine, Spinal Fusion, Thoracic Spine, Vertebroplasty Other Neurological Surgeries/Procedures: ORIF of the pubic symphysis on 09/25/04. Left olecranon bursa excision on 05/11/04 Musculoskeletal Surgical History: Reports: Carpal Tunnel, ORIF, Shoulder Surgery, Other (See Below). Denies: Arthroscopic Procedure, Ganglion Cyst, Joint Replacement Other Musculoskeletal Surgeries/Procedures:: Right carpal tunnel release on 07/13/18. Right shoulder rotator cuff repair in 2007. ORIF of the pubic symphysis on 09/25/04. Left olecranon bursa excision on 05/11/04 with right olecranon bursa excision in March 2002. Left elbow fusion secondary to fracture in March 2009. Oncologic Surgical History: Reports: None Dermatological Surgical History: Reports: None - Past Imaging History Past Imaging History: Reports: Angiography (Last heart catheterization on 02/07/2020 showing returned significant multivessel coronary artery disease. Multiple previous heart catheterizations last on 01/31/17 at time of repeat cardiac stents as above with heart catheterizations on 01/30/17, 07/15/14, and 12/07/12.), Cardiac Echo (Last echocardiogram on 01/30/17 with ejection fraction of 65% with previous echocardiogram on 07/16/14 and 02/08/11 with ejection fraction of 56%.), Carotid US (Carotid artery Doppler studies on 03/11/11 and 05/07/08), CAT Scan (CT of the chest on 06/19/13. CT of the brain on 07/15/08 and 05/07/08.), MRI (MRI of the right shoulder on 04/10/07. MRI of the brain on 10/29/09.), PFT (PFTs with diffusion studies on 06/19/13.), Stress Testing (Last Cardiolite stress test on 11/09/2018 was negative with ejection fraction of 73%. Previous Cardiolite stress test 10/21/15 with ejection fraction of 61%, on 02/26/15 and 01/08/11 with ejection fraction of 46%. Low level stress tests on 08/16/14, 02/16/17, and 02/16/11.), Ultrasound (Abdominal ultrasound on 09/29/11.), Other (See Below) (EMG and nerve conduction studies of the wrists on 06/21/18.) Social & Family History - Family History HEENT: Reports: None. Denies: Cataract, Glaucoma, Impaired Vision, Macular Degeneration Cardiac: Reports: Arrhythmia, CAD, OR, Pacemaker, Stent, Syncope, Other (See Below). Denies: Afib, AICD, Aneurysm, Blood Clots/VTE/DVT, Heart Failure, High Cholesterol, Hypertension, PVD/COD Other Cardiac Family History: Father with history of pacemaker history of syncope, unknown type of arrhythmia, and previous PTCA/stents and possible OR in his 70s. Brothers 2 with PTCA/stents and possible OR both in their 50s. Respiratory: Reports: None. Denies: Asthma, COPD, PE, Pneumothorax, Sleep Apnea GI: Reports: None. Denies: Celiac Disease, Cholelithiasis, Colon Polyps, GERD, GI bleed, Inflammatory Bowel Disease, Irritable Bowel Syndrome, PUD : Reports: None. Denies: Renal Calculus, Renal Disease/Insufficiency OBGYN: Reports: None. Denies: Dysfunctional uterine bleeding, Endometriosis, Recurrent Spontaneous Musculoskeletal: Reports: Arthritis, Osteoarthritis. Denies: Gout, RA, SLE Other Musculoskeletal Family History: Parents Neurological: Reports: CVA, Other (See Below). Denies: Alzheimers Disease, Dementia, Migraines, MS, Parkinson's, Seizure, TIA Other Neurological Family History: Father with CVA in his 70s. Paternal grandfather with fatal CVA in his 70s. Psychiatric: Reports: None. Denies: Abuse, Victim of, ADD, ADHD, Anxiety, Depression, Psych Hospitalization(s), Psychosis, PTSD, Suicide Attempt Endocrine/Metabolic: Reports: Diabetes, type II, IDDM, Other (See Below). Denies: Diabetes, Type I, Diabetes Mellitus, Type 3c, Hypothyroidism Other Endocrine/Metabolic Family History: Maternal grandmother and sister with IDDM Hematologic: Reports: None. Denies: SLE Immunologic: Reports: None. Denies: AIDS, HIV, SLE Dermatologic: Reports: None. Denies: Eczema, Psoriasis Oncologic: Reports: Bone, Lung, Skin, Other (See Below). Denies: Hodgkin's Lymphoma Other Oncologic Family History: Brother with fatal lung cancer at age 61 with history of tobacco use. Maternal grandmother with unknown type of fatal cancer in her 70s. Niece with fatal bone cancer at age 13. Father with unknown type of skin cancer. - Tobacco Use Tobacco Use Status *Q: Never Tobacco User Tobacco Use Within Last Twelve Months: No Used Tobacco, but Quit: No Smoking Cessation Information Provided To Patient: No Second Hand Smoke Exposure: No Second Hand Smoke Education Provided: No - Caffeine Use Caffeine Use: Reports: Soda (6-8 sodas per day). Denies: Coffee, Energy Drinks, Tea - Alcohol Use Alcohol Use History: Yes Days Per Week of Alcohol Use: 0 Number of Drinks Per Day: 3 Number of Drinks Per Day Comment: DWI at age 21 with no previous problems with alcohol abuse or treatment. Last alcohol intake a few months ago with patient usually drinking vodka, mixed drinks, etc. for holidays. Total Drinks Per Week: 0 Alcohol Use in Last Twelve Months: Yes - Recreational Drug Use Recreational Drug Use: No Drug Use in Last 12 Months: No Recreational Drug Type: Denies: Amphetamines (Speed), Cocaine, Heroin, Inhalants (Glues, Solvents, Aerosols), LSD (Acid), Methamphetamine, Morphine, Oxycodone - Living Situation & Occupation Living situation: Reports: Single (No children), Alone Occupation: Employed ([employer] and works in the [employer] in [employer]) ED ROS GENERAL - Review of Systems Review Of Systems: Comprehensive ROS is negative, except as noted in HPI. ED EXAM, NEURO - Physical Exam Exam: See Below Exam Limited By: No Limitations General Appearance: Alert, WD/WN, No Apparent Distress Eye Exam: Left Eye: Other (Stable baseline strabismus divergence), Bilateral Eye: EOMI, Normal Fundi, Normal Inspection (No vertigo or nystagmus. Patient is wearing glasses), PERRL Ears: Normal External Exam, Normal Canal, Hearing Grossly Normal, Normal TMs Nose: Normal Inspection, Normal Mucosa, No Blood Throat/Mouth: Normal Inspection, Normal Lips, Normal Teeth, Normal Gums, Normal Oropharynx, Normal Voice, No Airway Compromise. No: Dysphagia, Perioral Cyanosis Head Exam: Atraumatic, Normocephalic. No: Facial Swelling, Facial Tenderness, Sinus Tenderness Neck: Normal Inspection, Supple, Non-Tender, Full Range of Motion. No: Carotid Bruit, Lymphadenopathy (L), Lymphadenopathy (R), Thyromegaly Respiratory/Chest: No Respiratory Distress, Lungs Clear, Normal Breath Sounds, No Accessory Muscle Use, Chest Non-Tender. No: Pleural Rub, Retractions Cardiovascular: Normal Peripheral Pulses, Regular Rate, Rhythm, No Edema, No Gallop, No JVD, No Murmur, No Rub. No: Gallop/S3, Gallop/S4, Friction Rub GI/Abdominal: Normal Bowel Sounds, Soft, Non-Tender, No Organomegaly, No Distention, No Abnormal Bruit, No Mass. No: Guarding (Male) Exam: Deferred Rectal (Males) Exam: Deferred Neurological: Alert, Normal Mood/Affect, Normal Dorsiflexion, CN II-XII Intact, Normal Plantar Flexion, Normal Gait, Normal Reflexes, No Motor/Sensory Deficits, Oriented x 3, Other (Negative Babinski's, finger to nose, and pronator rotation tests. No evidence of facial paresis, tongue deviation, orthostasis, etc.. Excellent reverse thought processes. Excellent short-term memory with patient remembering 4 items 15 minutes after initial presentation. ). No: Babinski Back Exam: Normal Inspection, Full Range of Motion. No: CVA Tenderness (L), CVA Tenderness (R), Muscle Spasm Extremities: Normal Inspection, Normal Range of Motion, Non-Tender, No Pedal Edema, Normal Capillary Refill. No: Osiel's Sign Psychiatric: Normal Affect, Normal Mood Skin Exam: Warm, Dry, Intact, Normal Color, No Rash. No: Diaphoretic, Wound/Incision #1 Interpretation EKG Date: 06/20/20 Time: 16:19 Rhythm: NSR Rate (Beats/Min): 70 [place]: Normal (Neutral) P-Wave: Enlarged (Moderate diffuse biphasic P waves) QRS: Wide (0.10 seconds representing repolarization changes) ST-T: Other (T wave inversion in leads V1 and V2 with new T wave inversion in lead V2 since Cardiolite stress test on 03/05/2020.) QT: Normal PA/PQ Interval: 0.17 seconds with extreme poor R wave progression in the anter ior leads Comparison: Change From Previous EKG (As above) EKG Interpretation Comments: 1. No acute ischemic changes 2. Left atrial enlargement Course - Vital Signs Last Recorded V/S: See stroke code and E-med sheets. - Orders/Labs/Meds Orders: Active Orders 24 hr Category Date Time Status Blood Glucose Check, Bedside [RC] STAT Care 06/20/20 16:10 Active Communication Order [RC] PER UNIT ROUTINE Care 06/20/20 16:10 Active EKG Documentation Completion [RC] ASDIRECTED Care 06/20/20 16:10 Active NIH Stroke Scale [RC] ASDIRECTED Care 06/20/20 16:10 Active Oxygen Therapy, ED [RC] CONTINUOUS Care 06/20/20 16:10 Active Peripheral IV Care [RC] . DIRECTED Care 06/20/20 16:10 Active Pulse Oximetry [RC] CONTINUOUS Care 06/20/20 16:10 Active Up With Assistance [RC] ASDIRECTED Care 06/20/20 16:10 Active Vital Signs [RC] PFP Care 06/20/20 16:10 Active Nothing per Oral Now Diet [DIET] Diet 06/20/20 Breakfast Active Chest 1V Frontal [CR] Stat Exams 06/20/20 16:10 Taken Head wo Cont [CT] Stat Exams 06/20/20 16:10 Taken CULTURE URINE [RM] Routine Lab 06/20/20 16:47 Received PROLACTIN [REF] Stat Lab 06/20/20 16:15 Received Sodium Chloride 0.9% [Saline Flush] Med 06/20/20 16:10 Active 10 ml FLUSH ASDIRECTED PRN Obtain Past Medical Record [OM.PC] Stat Oth 06/20/20 16:10 Active Peripheral IV Insertion Adult [OM.PC] Stat Oth 06/20/20 16:10 Ordered Resuscitation Status Stat Resus Stat 06/20/20 16:10 Ordered Medication Orders Sodium Chloride (Sodium Chloride 0.9% 10 Ml Syringe) 10 ml FLUSH ASDIRECTED PRN PRN Reason: Keep Vein Open Last Admin: 06/20/20 16:34 Dose: 10 ml Documented by: [email or web address] Labs: Laboratory Tests 06/20/20 06/20/20 06/20/20 Range/Units 16:15 16:15 16:15 WBC 9.7 (4.0-10.2) K/uL RBC 4.29 L (4.33-5.41) M/uL Hgb 12.9 L (13.1-16.8) g/dL Hct 38.4 L (39.0-49.0) % MCV 89.5 D (84.0-98.0) fL MCH 30.1 (28.2-33.3) pg MCHC 33.6 (31.7-36.0) g/dL RDW 14.7 H (11.2-14.1) % Plt Count 243 (150-350) K/uL Neut % (Auto) 55.3 (45.0-80.0) % Lymph % (Auto) 30.3 (10.0-50.0) % [place] % (Auto) 10.8 (2.0-14.0) % Eos % (Auto) 3.4 (0.0-5.0) % Baso % (Auto) 0.2 (0.0-2.0) % Neut # (Auto) 5.34 (1.40-7.00) K/uL Lymph # (Auto) 2.93 (0.50-3.50) K/uL [place] # (Auto) 1.04 H (0.00-1.00) K/uL Eos # (Auto) 0.33 (0.00-0.50) K/uL Baso # (Auto) 0.02 (0.00-0.20) K/uL PT 10.4 (9.5-12.0) SEC INR 1.0 APTT 25.1 (24.5-32.8) SEC D-Dimer, Quantitative 505 H (0-400) ng/mL Sodium (136-145) mmol/L Potassium (3.5-5.1) mmol/L Chloride (98-107) mmol/L Carbon Dioxide (21.0-32.0) mmol/L BUN (7-18) mg/dL Creatinine (0.51-1.17) mg/dL Est Cr Clr Drug Dosing Estimated GFR (MDRD) mL/min Glucose (70-99) mg/dL Lactic Acid (0.4-2.0) mmol/L Uric Acid (2.6-7.2) mg/dL Calcium (8.5-10.1) mg/dL Magnesium (1.8-2.4) mg/dL Total Bilirubin (0.2-1.0) mg/dL AST (15-37) U/L ALT (12-78) U/L Alkaline Phosphatase (46-116) IU/L Creatine Kinase (26-308) U/L Creatine Kinase Index (0.0-2.5) % CK-MB (CK-2) (0.00-3.60) ng/mL Troponin I (0.000-0.056) ng/mL NT-Pro-B Natriuret Pep (0-125) pg/mL Total Protein (6.4-8.2) g/dL Albumin (3.4-5.0) g/dL TSH, Ultra Sensitive (0.358-3.740) mIU/mL Specimen Type Urine Color Urine Appearance Urine pH (5.0-9.0) Ur Specific [place] (1.005-1.030) Urine Protein (NEGATIVE) mg/dL Urine Glucose (UA) (NEGATIVE) mg/dL Urine Ketones (NEGATIVE) mg/dL Urine Occult Blood (NEGATIVE) Urine Nitrite (NEGATIVE) Urine Bilirubin (NEGATIVE) Urine Urobilinogen (0.2-1.0) E.U./dL Ur Leukocyte Esterase (NEGATIVE) Urine RBC /HPF Urine WBC /HPF Ur Epithelial Cells /LPF Urine Bacteria (NONE TO FEW) /HPF Ethyl Alcohol (0.000-0.080) g/dL SARS-CoV-2 RNA (VICKY) (NEGATIVE) 06/20/20 06/20/20 06/20/20 Range/Units 16:15 16:15 16:15 WBC (4.0-10.2) K/uL RBC (4.33-5.41) M/uL Hgb (13.1-16.8) g/dL Hct (39.0-49.0) % MCV (84.0-98.0) fL MCH (28.2-33.3) pg MCHC (31.7-36.0) g/dL RDW (11.2-14.1) % Plt Count (150-350) K/uL Neut % (Auto) (45.0-80.0) % Lymph % (Auto) (10.0-50.0) % [place] % (Auto) (2.0-14.0) % Eos % (Auto) (0.0-5.0) % Baso % (Auto) (0.0-2.0) % Neut # (Auto) (1.40-7.00) K/uL Lymph # (Auto) (0.50-3.50) K/uL [place] # (Auto) (0.00-1.00) K/uL Eos # (Auto) (0.00-0.50) K/uL Baso # (Auto) (0.00-0.20) K/uL PT (9.5-12.0) SEC INR APTT (24.5-32.8) SEC D-Dimer, Quantitative (0-400) ng/mL Sodium 138 (136-145) mmol/L Potassium 4.1 (3.5-5.1) mmol/L Chloride 101 (98-107) mmol/L Carbon Dioxide 25.6 (21.0-32.0) mmol/L BUN 21 H (7-18) mg/dL Creatinine 1.20 H (0.51-1.17) mg/dL Est Cr Clr Drug Dosing TNP Estimated GFR (MDRD) > 60 mL/min Glucose 115 H (70-99) mg/dL Lactic Acid 0.9 (0.4-2.0) mmol/L Uric Acid 8.6 H (2.6-7.2) mg/dL Calcium 8.4 L (8.5-10.1) mg/dL Magnesium 2.0 (1.8-2.4) mg/dL Total Bilirubin 0.4 (0.2-1.0) mg/dL AST 16 (15-37) U/L ALT 27 (12-78) U/L Alkaline Phosphatase 36 L (46-116) IU/L Creatine Kinase 167 (26-308) U/L Creatine Kinase Index 1.0 (0.0-2.5) % CK-MB (CK-2) 1.60 (0.00-3.60) ng/mL Troponin I 0.000 (0.000-0.056) ng/mL NT-Pro-B Natriuret Pep 185 H (0-125) pg/mL Total Protein 7.1 (6.4-8.2) g/dL Albumin 3.9 (3.4-5.0) g/dL TSH, Ultra Sensitive 1.527 (0.358-3.740) mIU/mL Specimen Type Urine Color Urine Appearance Urine pH (5.0-9.0) Ur Specific [place] (1.005-1.030) Urine Protein (NEGATIVE) mg/dL Urine Glucose (UA) (NEGATIVE) mg/dL Urine Ketones (NEGATIVE) mg/dL Urine Occult Blood (NEGATIVE) Urine Nitrite (NEGATIVE) Urine Bilirubin (NEGATIVE) Urine Urobilinogen (0.2-1.0) E.U./dL Ur Leukocyte Esterase (NEGATIVE) Urine RBC /HPF Urine WBC /HPF Ur Epithelial Cells /LPF Urine Bacteria (NONE TO FEW) /HPF Ethyl Alcohol (0.000-0.080) g/dL SARS-CoV-2 RNA (VICKY) Negative (NEGATIVE) 06/20/20 06/20/20 Range/Units 16:15 16:47 WBC (4.0-10.2) K/uL RBC (4.33-5.41) M/uL Hgb (13.1-16.8) g/dL Hct (39.0-49.0) % MCV (84.0-98.0) fL MCH (28.2-33.3) pg MCHC (31.7-36.0) g/dL RDW (11.2-14.1) % Plt Count (150-350) K/uL Neut % (Auto) (45.0-80.0) % Lymph % (Auto) (10.0-50.0) % [place] % (Auto) (2.0-14.0) % Eos % (Auto) (0.0-5.0) % Baso % (Auto) (0.0-2.0) % Neut # (Auto) (1.40-7.00) K/uL Lymph # (Auto) (0.50-3.50) K/uL [place] # (Auto) (0.00-1.00) K/uL Eos # (Auto) (0.00-0.50) K/uL Baso # (Auto) (0.00-0.20) K/uL PT (9.5-12.0) SEC INR APTT (24.5-32.8) SEC D-Dimer, Quantitative (0-400) ng/mL Sodium (136-145) mmol/L Potassium (3.5-5.1) mmol/L Chloride (98-107) mmol/L Carbon Dioxide (21.0-32.0) mmol/L BUN (7-18) mg/dL Creatinine (0.51-1.17) mg/dL Est Cr Clr Drug Dosing Estimated GFR (MDRD) mL/min Glucose (70-99) mg/dL Lactic Acid (0.4-2.0) mmol/L Uric Acid (2.6-7.2) mg/dL Calcium (8.5-10.1) mg/dL Magnesium (1.8-2.4) mg/dL Total Bilirubin (0.2-1.0) mg/dL AST (15-37) U/L ALT (12-78) U/L Alkaline Phosphatase (46-116) IU/L Creatine Kinase (26-308) U/L Creatine Kinase Index (0.0-2.5) % CK-MB (CK-2) (0.00-3.60) ng/mL Troponin I (0.000-0.056) ng/mL NT-Pro-B Natriuret Pep (0-125) pg/mL Total Protein (6.4-8.2) g/dL Albumin (3.4-5.0) g/dL TSH, Ultra Sensitive (0.358-3.740) mIU/mL Specimen Type [place]rin[place] Urine Color Yellow Urine Appearance Clear Urine pH 6.5 (5.0-9.0) Ur Specific [place] 1.020 (1.005-1.030) Urine Protein Negative (NEGATIVE) mg/dL Urine Glucose (UA) Negative (NEGATIVE) mg/dL Urine Ketones Negative (NEGATIVE) mg/dL Urine Occult Blood Negative (NEGATIVE) Urine Nitrite Negative (NEGATIVE) Urine Bilirubin Negative (NEGATIVE) Urine Urobilinogen 0.2 (0.2-1.0) E.U./dL Ur Leukocyte Esterase Negative (NEGATIVE) Urine RBC 0-5 /HPF Urine WBC 0-5 /HPF Ur Epithelial Cells Rare /LPF Urine Bacteria Rare (NONE TO FEW) /HPF Ethyl Alcohol 0.006 (0.000-0.080) g/dL SARS-CoV-2 RNA (VICKY) (NEGATIVE) Meds: Medications Generic Name Dose Route Start Last Admin Trade Name Freq PRN Reason Stop Dose Admin Sodium Chloride 10 ml 06/20/20 16:10 06/20/20 16:34 Sodium Chloride 0.9% 10 Ml Syringe FLUSH 10 ml ASDIRECTED PRN Administration Keep Vein Open Discontinued Medications Generic Name Dose Route Start Last Admin Trade Name Freq PRN Reason Stop Dose Admin Famotidine 40 mg 06/20/20 16:10 06/20/20 16:28 Famotidine 20 Mg/2 Ml Sdv IVPUSH 06/20/20 16:11 40 mg ONETIME ONE Administration - Radiology Interpretation Free Text/Narrative:: front desk monitor shows normal sinus rhythm with heart rate in the 70s with no ectopy or arrhythmia Chest x-ray, portable, shows evidence of status post medial sternotomy with moderate COPD changes with no pulmonary infiltrates, pneumothorax, cardiomegaly, or CHF. CT of the head without contrast was negative for CVA, cerebral hemorrhages, or any acute findings. Preliminary verbal report was not received from the radiology department at [facility] despite our previous request. Departure - Departure Time of Disposition: 17:30 Disposition: DC/Tfer to [facility] 02 Condition: Fair Clinical Impression: TIA (transient ischemic attack), Hyperglycemia, D-dimer, elevated COPD (chronic obstructive pulmonary disease) Qualifiers: COPD type: emphysema Emphysema type: panlobular Qualified Code(s): J43.1 - Panlobular emphysema Hypertension Qualifiers: Hypertension type: essential hypertension Qualified Code(s): I10 - Essential (primary) hypertension Hyperlipidemia Qualifiers: Hyperlipidemia type: mixed hyperlipidemia Qualified Code(s): E78.2 - Mixed hyperlipidemia Coronary artery disease Qualifiers: Coronary Disease-Associated Artery/Lesion type: bypass graft [place] vs. transplanted heart: [place] heart Associated angina: without angina Qualified Code(s): I25.810 - Atherosclerosis of coronary artery bypass graft(s) without angina pectoris Osteoarthritis Qualifiers: Osteoarthritis location: multiple joints Osteoarthritis type: primary Qualified Code(s): M89.49 - Other hypertrophic osteoarthropathy, multiple sites - Discharge Information *PRESCRIPTION DRUG MONITORING PROGRAM REVIEWED*: Not Applicable *COPY OF PRESCRIPTION DRUG MONITORING REPORT IN PATIENT IVAN: Not Applicable Referrals: Angela Giles NP [Primary Care Provider] - Forms: ED Department Discharge, Interfacility Transfer EMTALA - Problem List & Annotations (1) TIA (transient ischemic attack) SNOMED Code(s): 183188052 Code(s): G45.9 - TRANSIENT CEREBRAL ISCHEMIC ATTACK, UNSPECIFIED Status: Acute Priority: High Current Visit: Yes Onset Date: 06/20/20 Annotation/Comment:: Telephone consultation at 4:[address] Longoria, stroke neurologist at [facility] in [place], who does accept the patient to the emergency room for further treatment and evaluation, with no further treatment recommendations given. The patient already did take a regular strength aspirin this morning with no further aspirin at this time as per the stroke neurologist as above. He does plan to initiate therapy TIA work-up, including probable MRI of the brain, etc. NIH stroke scale was 0. No significant neurological deficits with improving memory and excellent short-term memory with the patient remembering 4 items more than 15 minutes after initial presentation of these items. Stable left-sided strabismus with no significant diplopia, etc. at this time. Stable vital signs with improved mental findings as above prior to transfer. Ambulance transfer with records custodian accompaniment. The patient has already been immunized for COVID-19 with negative rapid COVID-19 test in this facility prior to transfer. (2) Coronary artery disease SNOMED Code(s): 12134074 Code(s): I25.10 - ATHSCL HEART DISEASE OF [place] CORONARY ARTERY W/O ANG PCTRS Status: Chronic Priority: High Current Visit: Yes Annotation/Comment:: No chest pain or anginal type symptoms. No evidence of acute OR despite mild progression of his T wave inversion from lead V1 to V2 as above possibly secondary to lead placement. Further cardiology work-up, cardiology consultation, etc. depending on his clinical course. Note signifi cant cardiac history in the past including recent CABG on 02/11/2020. Mild BNP elevation otherwise normal cardiac enzymes and no clinical evidence of significant CHF. Qualifiers: Coronary Disease-Associated Artery/Lesion type: bypass graft [place] vs. transplanted heart: [place] heart Associated angina: without angina Qualified Code(s): I25.810 - Atherosclerosis of coronary artery bypass graft(s) without angina pectoris (3) D-dimer, elevated SNOMED Code(s): 486465407 Code(s): R79.89 - OTHER SPECIFIED ABNORMAL FINDINGS OF BLOOD CHEMISTRY Status: Acute Priority: High Current Visit: Yes Onset Date: 06/20/20 Annotation/Comment:: Possibly secondary to TIA versus CVA. No clinical evidence of DVT or PE. Further work-up depending on his clinical course by accepting providers. (4) COPD (chronic obstructive pulmonary disease) SNOMED Code(s): 31522374 Code(s): J44.9 - CHRONIC OBSTRUCTIVE PULMONARY DISEASE, UNSPECIFIED Status: Chronic Priority: Medium Current Visit: Yes Annotation/Comment:: No recent fever, bronchitic type symptoms, or previous medical therapy required. Qualifiers: COPD type: emphysema Emphysema type: panlobular Qualified Code(s): J43.1 - Panlobular emphysema (5) Hyperglycemia SNOMED Code(s): 18792834 Code(s): R73.9 - HYPERGLYCEMIA, UNSPECIFIED Status: Chronic Priority: Medium Current Visit: Yes Onset Date: ~10/26/18 Annotation/Comment:: History of elevated glycosylated hemoglobin but no true diabetes diagnosed to this point. Continue to observe closely by accepting and regular providers. (6) Hyperlipidemia SNOMED Code(s): 75075536 Code(s): E78.5 - HYPERLIPIDEMIA, UNSPECIFIED Status: Chronic Priority: Medium Current Visit: Yes Annotation/Comment:: Currently under therapy. Continue to observe closely by his regular providers. Qualifiers: Hyperlipidemia type: mixed hyperlipidemia Qualified Code(s): E78.2 - Mixed hyperlipidemia (7) Hypertension SNOMED Code(s): 52022405 Code(s): I10 - ESSENTIAL (PRIMARY) HYPERTENSION Status: Chronic Priority: Medium Current Visit: Yes Annotation/Comment:: Blood pressures were somewhat elevated in the emergency room with no history of medication noncompliance. Continue to observe closely by accepting providers. Qualifiers: Hypertension type: essential hypertension Qualified Code(s): I10 - Essential (primary) hypertension (8) Osteoarthritis SNOMED Code(s): 127424409 Code(s): M19.90 - UNSPECIFIED OSTEOARTHRITIS, UNSPECIFIED SITE Status: Chronic Priority: Medium Current Visit: Yes Annotation/Comment:: Otherwise stable by history with no recent gout attacks, fall, injury, etc.. Mild persistent elevated uric acid level today. Qualifiers: Osteoarthritis location: multiple joints Osteoarthritis type: primary Qualified Code(s): M89.49 - Other hypertrophic osteoarthropathy, multiple sites (9) Anemia SNOMED Code(s): 779288107 Code(s): D64.9 - ANEMIA, UNSPECIFIED Status: Acute Priority: Medium Current Visit: Yes Onset Date: 06/20/20 Annotation/Comment:: Mild anemia today with no evidence of acute GI bleed, etc. High-dose IV Pepcid given as GI prophylaxis. Qualifiers: Anemia type: unspecified type Qualified Code(s): D64.9 - Anemia, unspecified - Problem List Review Problem List Initiated/Reviewed/Updated: Yes - My Orders Last 24 Hours: My Active Orders 04/02/21 Breakfast Nothing per Oral Now Diet [DIET] 06/20/20 16:10 Blood Glucose Check, Bedside [RC] STAT Communication Order [RC] PER UNIT ROUTINE EKG Documentation Completion [RC] ASDIRECTED NIH Stroke Scale [RC] ASDIRECTED Oxygen Therapy, ED [RC] CONTINUOUS Peripheral IV Care [RC] . DIRECTED Pulse Oximetry [RC] CONTINUOUS Up With Assistance [RC] ASDIRECTED Vital Signs [RC] PFP Chest 1V Frontal [CR] Stat Head wo Cont [CT] Stat Sodium Chloride 0.9% [Saline Flush] 10 ml FLUSH ASDIRECTED PRN Obtain Past Medical Record [OM.PC] Stat Peripheral IV Insertion Adult [OM.PC] Stat Resuscitation Status Stat 06/20/20 16:15 PROLACTIN [REF] Stat 06/20/20 16:47 CULTURE URINE [RM] Routine - Assessment/Plan Last 24 Hours: My Active Orders 06/20/20 Breakfast Nothing per Oral Now Diet [DIET] 06/20/20 16:10 Blood Glucose Check, Bedside [RC] STAT Communication Order [RC] PER UNIT ROUTINE EKG Documentation Completion [RC] ASDIRECTED NIH Stroke Scale [RC] ASDIRECTED Oxygen Therapy, ED [RC] CONTINUOUS Peripheral IV Care [RC] . DIRECTED Pulse Oximetry [RC] CONTINUOUS Up With Assistance [RC] ASDIRECTED Vital Signs [RC] PFP Chest 1V Frontal [CR] Stat Head wo Cont [CT] Stat Sodium Chloride 0.9% [Saline Flush] 10 ml FLUSH ASDIRECTED PRN Obtain Past Medical Record [OM.PC] Stat Peripheral IV Insertion Adult [OM.PC] Stat Resuscitation Status Stat 06/20/20 16:15 PROLACTIN [REF] Stat 06/20/20 16:47 CULTURE URINE [RM] Routine Assessment:: As above Plan: As above. Extensive precautions were given to the patient, who is in agreement with the treatment plan. Ambulance transfer to [facility] in [place] as above.
[2020-06-20 16:39] LABS: PTT,PARTIAL THROMBOPLSTIN TIME 25.1 SEC (24.5-32.8)
[2020-06-20 16:53] LABS: CHLORIDE,CL 101 mmol/L (98-107); SODIUM,NA 138 mmol/L (136-145)
== END 2020-06-20 17:30 ==
LOC: LL.ED 16:08
DX: G45.9 Transient cerebral ischemic attack, unspecified (principal); J43.1 Panlobular emphysema; I10 Essential (primary) hypertension; E78.2 Mixed hyperlipidemia; I25.810 Atherosclerosis of coronary artery bypass graft(s) without angina pectoris; M89.49 Other hypertrophic osteoarthropathy, multiple sites; R79.1 Abnormal coagulation profile; R73.9 Hyperglycemia, unspecified; E66.9 Obesity, unspecified; M19.90 Unspecified osteoarthritis, unspecified site; I25.10 Atherosclerotic heart disease of native coronary artery without angina pectoris; E78.00 Pure hypercholesterolemia, unspecified; I13.0 Hypertensive heart and chronic kidney disease with heart failure and stage 1 through stage 4 chronic kidney disease, or unspecified chronic kidney disease; I50.9 Heart failure, unspecified; I25.2 Old myocardial infarction; N18.9 Chronic kidney disease, unspecified; Z95.5 Presence of coronary angioplasty implant and graft; Z79.899 Other long term (current) drug therapy; Z79.82 Long term (current) use of aspirin; Z95.1 Presence of aortocoronary bypass graft
CPT/HCPCS: 36415; 70450; 71045; 80053; 80307; 81001; 82550; 82553; 83605; 83735; 83880; 84146; 84443; 84484; 84550; 85025; 85379; 85610; 85730; 87086; 87635; 93005; 96374; 99285; J3490; 93010; U0002

== ENCOUNTER 2022-12-28 14:45 | Emergency (ER) | payer MEDICARE ==
[2022-12-28 15:14] LABS: BASOPHILS ABSOLUTE AUTO 0.02 K/uL (0.00-0.20); BASOPHILS PERCENT AUTO 0.2 % (0.0-2.0); EOSINOPHILS ABSOLUTE AUTO 0.08 K/uL (0.00-0.50); EOSINOPHILS PERCENT AUTO 0.8 % (0.0-5.0); HEMATOCRIT 38.3 % (39.0-49.0); HEMOGLOBIN 12.7 g/dL (13.1-16.8); LYMPHOCYTES ABSOLUTE AUTO 2.29 K/uL (0.50-3.50); LYMPHOCYTES PERCENT AUTO 21.8 % (10.0-50.0); MEAN CORPUSCULAR HEMOGLOBIN 31.9 pg (28.2-33.3); MEAN CORPUSCULAR HGB CONC 33.2 g/dL (31.7-36.0); MEAN CORPUSCULAR VOLUME 96.2 fL (84.0-98.0); MONOCYTES ABSOLUTE AUTO 0.99 K/uL (0.00-1.00); MONOCYTES PERCENT AUTO 9.4 % (2.0-14.0); NEUTROPHILS ABSOLUTE AUTO 7.13 K/uL (1.40-7.00); NEUTROPHILS PERCENT AUTO 67.8 % (45.0-80.0); PLATELET COUNT,PLT 375 K/uL (150-350); RED BLOOD CELL COUNT 3.98 M/uL (4.33-5.41); RED CELL DISTRIBUTION WIDTH 13.4 % (11.2-14.1); WHITE BLOOD CELL COUNT,WBC 10.5 K/uL (4.0-10.2)
[2022-12-28 15:31] LABS: LACTIC ACID 1.1 mmol/L (0.4-2.0)
[2022-12-28 15:38] LABS: ALANINE AMINOTRANSFERASE,ALT 18 U/L (12-78); ALKALINE PHOSPHATASE 22 IU/L (46-116); ASPARTATE AMNIOTRANSFERASE,AST 14 U/L (15-37); BILIRUBIN TOTAL 0.4 mg/dL (0.2-1.0); BLOOD UREA NITROGEN,BUN 20 mg/dL (7-18); CALCIUM 9.1 mg/dL (8.5-10.1); CARBON DIOXIDE,CO2 25.9 mmol/L (21.0-32.0); CHLORIDE,CL 100 mmol/L (98-107); CREATINE KINASE,CK 100 U/L (26-308); CREATININE 1.25 mg/dL (0.51-1.17); GLUCOSE RANDOM 109 mg/dL (70-99); POTASSIUM,K 3.4 mmol/L (3.5-5.1); PRO B-TYPE NATRIUR PEPT,BNPPRO 233 pg/mL (0-125); PROTEIN TOTAL,TP 7.4 g/dL (6.4-8.2); SODIUM,NA 135 mmol/L (136-145)
[2022-12-28 15:39] LABS: ANION GAP 12.5 meq/L (7-15); ESTIMATED GFR 64 mL/min (>=60)
[2022-12-28 15:40] LABS: PROTHROMBIN TIME 10.1 SEC (9.0-11.1)
[2022-12-28] MEDS ORDERED: Nitroglycerin 0.4 MG Tab.SL SL PRN (16:28)
[2022-12-28] MEDS ORDERED: Heparin Sodium/0.45% NaCl 500 ML IV SCH (16:30)
[2022-12-28] MEDS: Heparin Sodium 5,000 Units/ML Vial IVPUSH ONE (16:39)
[2022-12-28] MEDS: Sodium Chloride 0.9% 10 ML Syringe FLUSH PRN (16:48)
[2022-12-28] MEDS: Heparin Sodium/0.45% NaCl 500 ML IV SCH (16:51)
[2022-12-28] MEDS: Aspirin 81 MG Tab.Chew PO ONE (17:01)
== END 2022-12-28 18:35 ==
LOC: LL.ED 14:45
DX: I21.4 Non-ST elevation (NSTEMI) myocardial infarction (principal); I25.10 Atherosclerotic heart disease of native coronary artery without angina pectoris; I13.0 Hypertensive heart and chronic kidney disease with heart failure and stage 1 through stage 4 chronic kidney disease, or unspecified chronic kidney disease; I50.9 Heart failure, unspecified; N18.30 Chronic kidney disease, stage 3 unspecified; J44.9 Chronic obstructive pulmonary disease, unspecified; I25.2 Old myocardial infarction; E78.00 Pure hypercholesterolemia, unspecified; E66.9 Obesity, unspecified; Z68.30 Body mass index [BMI] 30.0-30.9, adult; Z79.82 Long term (current) use of aspirin; Z79.899 Other long term (current) drug therapy
CPT/HCPCS: 36415; 71045; 80053; 82550; 83605; 83735; 83880; 84443; 84484; 85025; 85379; 85610; 85730; 93005; 96365; 96366; 99285; A9270; J1644; J3490

== ENCOUNTER 2023-04-11 16:40 | Emergency (ER) | payer MEDICARE ==
[2023-04-11] MEDS ORDERED: Aspirin 81 MG Tab.Chew PO ONE (16:53)
[2023-04-11 17:07] LABS: BASOPHILS ABSOLUTE AUTO 0.02 K/uL (0.00-0.20); BASOPHILS PERCENT AUTO 0.3 % (0.0-2.0); EOSINOPHILS ABSOLUTE AUTO 0.06 K/uL (0.00-0.50); EOSINOPHILS PERCENT AUTO 0.8 % (0.0-5.0); HEMATOCRIT 36.6 % (39.0-49.0); HEMOGLOBIN 12.3 g/dL (13.1-16.8); LYMPHOCYTES ABSOLUTE AUTO 2.01 K/uL (0.50-3.50); LYMPHOCYTES PERCENT AUTO 26.6 % (10.0-50.0); MEAN CORPUSCULAR HEMOGLOBIN 31.2 pg (28.2-33.3); MEAN CORPUSCULAR HGB CONC 33.6 g/dL (31.7-36.0); MEAN CORPUSCULAR VOLUME 92.9 fL (84.0-98.0); MONOCYTES ABSOLUTE AUTO 1.03 K/uL (0.00-1.00); MONOCYTES PERCENT AUTO 13.6 % (2.0-14.0); NEUTROPHILS ABSOLUTE AUTO 4.43 K/uL (1.40-7.00); NEUTROPHILS PERCENT AUTO 58.7 % (45.0-80.0); PLATELET COUNT,PLT 339 K/uL (150-350); RED BLOOD CELL COUNT 3.94 M/uL (4.33-5.41); RED CELL DISTRIBUTION WIDTH 13.2 % (11.2-14.1); WHITE BLOOD CELL COUNT,WBC 7.6 K/uL (4.0-10.2)
[2023-04-11 17:28] LABS: ALBUMIN 3.9 g/dL (3.4-5.0); BILIRUBIN TOTAL 0.5 mg/dL (0.2-1.0); CALCIUM 9.5 mg/dL (8.5-10.1); CARBON DIOXIDE,CO2 25.5 mmol/L (21.0-32.0); CREATININE 1.28 mg/dL (0.51-1.17); EST CRCL DRUG DOSING (CG) 51.23 mL/min; POTASSIUM,K 3.4 mmol/L (3.5-5.1); PROTEIN TOTAL,TP 7.5 g/dL (6.4-8.2)
[2023-04-11 17:29] LABS: ANION GAP 15.9 meq/L (7-15)
== END 2023-04-11 17:55 | disposition home or self-care (01) ==
LOC: LL.ED 16:40
DX: R07.89 Other chest pain (principal); J44.9 Chronic obstructive pulmonary disease, unspecified; I25.10 Atherosclerotic heart disease of native coronary artery without angina pectoris; I11.0 Hypertensive heart disease with heart failure; I50.9 Heart failure, unspecified; E66.9 Obesity, unspecified; Z68.28 Body mass index [BMI] 28.0-28.9, adult
CPT/HCPCS: 36415; 71045; 80053; 84484; 85025; 93005; 99285; A9270-GY

== ENCOUNTER 2023-07-30 18:19 | Emergency (ER) | payer MEDICARE ==
[2023-07-30] MEDS: oxyCODONE 5 MG Tab PO ONE (18:57)
[2023-07-30] MEDS: Take Home: oxyCODONE HCl 5 MG Tab, 5 Tab Pack PO ONE (19:19)
== END 2023-07-30 19:25 | disposition home or self-care (01) ==
LOC: LL.ED 18:19
DX: M25.562 Pain in left knee (principal); I13.0 Hypertensive heart and chronic kidney disease with heart failure and stage 1 through stage 4 chronic kidney disease, or unspecified chronic kidney disease; I50.9 Heart failure, unspecified; N18.9 Chronic kidney disease, unspecified; I25.10 Atherosclerotic heart disease of native coronary artery without angina pectoris; J44.9 Chronic obstructive pulmonary disease, unspecified; I25.2 Old myocardial infarction; Z95.1 Presence of aortocoronary bypass graft; Z95.5 Presence of coronary angioplasty implant and graft; Z90.49 Acquired absence of other specified parts of digestive tract; Z95.0 Presence of cardiac pacemaker; Z79.899 Other long term (current) drug therapy; Z79.82 Long term (current) use of aspirin; Z79.02 Long term (current) use of antithrombotics/antiplatelets; Z96.651 Presence of right artificial knee joint; X50.1XXA Overexertion from prolonged static or awkward postures, initial encounter; Y93.89 Activity, other specified
CPT/HCPCS: 73560; 99283; A9270

== ENCOUNTER 2023-10-25 15:31 | Emergency (ER) | payer OTHER, MEDICARE ==
[~2023-10-25 15:31] MED LIST: Sodium Chloride 0.9% 10 ML Syringe FLUSH PRN
[2023-10-25] MEDS ORDERED: Tranexamic Acid 1,000 MG/10 ML Vial IV ONE ×2 (15:59→16:08)
[2023-10-25] MEDS ORDERED: Midazolam 1 MG/ML 2 ML SDV ONE (16:53)
[2023-10-25] MEDS ORDERED: Tranexamic Acid 1,000 MG in Sodium Chloride 0.9% 100 ML IV ONE (17:01)
[2023-10-25] MEDS ORDERED: Midazolam 1 MG/ML 2 ML SDV IVPUSH ONE (17:01)
[2023-10-25] MEDS ORDERED: Tranexamic Acid 1,000 MG in Sodium Chloride 0.9% 500 ML IV ONE (17:01)
[2023-10-25] MEDS ORDERED: Sodium Chloride 0.9% 1,000 ML IV ONE (17:01)
[2023-10-25] MEDS ORDERED: Rocuronium 100 MG/10 ML MDV IVPUSH ONE (17:01)
[2023-10-25 17:07] LABS: BASOPHILS ABSOLUTE AUTO 0.02 K/uL (0.00-0.20); BASOPHILS PERCENT AUTO 0.1 % (0.0-2.0); EOSINOPHILS PERCENT AUTO 1.6 % (0.0-5.0); HEMATOCRIT 35.1 % (39.0-49.0); HEMOGLOBIN 11.1 g/dL (13.1-16.8); LYMPHOCYTES ABSOLUTE AUTO 6.78 K/uL (0.50-3.50); LYMPHOCYTES PERCENT AUTO 36.9 % (10.0-50.0); MEAN CORPUSCULAR HEMOGLOBIN 30.4 pg (28.2-33.3); MEAN CORPUSCULAR HGB CONC 31.6 g/dL (31.7-36.0); MEAN CORPUSCULAR VOLUME 96.2 fL (84.0-98.0); MONOCYTES ABSOLUTE AUTO 1.09 K/uL (0.00-1.00); MONOCYTES PERCENT AUTO 5.9 % (2.0-14.0); NEUTROPHILS ABSOLUTE AUTO 10.19 K/uL (1.40-7.00); NEUTROPHILS PERCENT AUTO 55.5 % (45.0-80.0); PLATELET COUNT,PLT 541 K/uL (150-350); RED BLOOD CELL COUNT 3.65 M/uL (4.33-5.41); RED CELL DISTRIBUTION WIDTH 14.1 % (11.2-14.1); WHITE BLOOD CELL COUNT,WBC 18.4 K/uL (4.0-10.2)
[2023-10-25 17:09] LABS: ALANINE AMINOTRANSFERASE,ALT 55 U/L (12-78); ALBUMIN 3.6 g/dL (3.4-5.0); ALKALINE PHOSPHATASE 25 IU/L (46-116); ANION GAP 21.7 meq/L (7-15); ASPARTATE AMNIOTRANSFERASE,AST 75 U/L (15-37); BILIRUBIN TOTAL 0.5 mg/dL (0.2-1.0); BLOOD UREA NITROGEN,BUN 22 mg/dL (7-18); CALCIUM 8.6 mg/dL (8.5-10.1); CARBON DIOXIDE,CO2 17.3 mmol/L (21.0-32.0); CHLORIDE,CL 104 mmol/L (98-107); ESTIMATED GFR 47 mL/min (>=60); GLUCOSE RANDOM 280 mg/dL (70-99); LIPASE 102 U/L (16-77); SODIUM,NA 139 mmol/L (136-145)
[2023-10-25] MEDS ORDERED: Sodium Chloride 0.9% 250 ML IV SCH (18:30)
== END 2023-10-25 16:25 ==
LOC: MERGE 15:31 → LL.ED 15:31
DX: S01.01XA Laceration without foreign body of scalp, initial encounter (principal); R40.4 Transient alteration of awareness; V89.2XXA Person injured in unspecified motor-vehicle accident, traffic, initial encounter; Y92.410 Unspecified street and highway as the place of occurrence of the external cause; Z95.1 Presence of aortocoronary bypass graft
CPT/HCPCS: 31500; 36415; 71045; 80053; 83690; 84484; 85025; 86850; 86900; 86901; 86920; 86922; 96365; 99291-25; 99292; J2250; J3490; J7030